=== PATIENT | female | born 1950 | race Caucasian/White ===

== ENCOUNTER 2016-10-29 18:53 | Emergency (ER) | payer MEDICARE, OTHER ==
[2016-10-29 19:15] VITALS: TEMP 97
--- NOTE | 2016-10-29 19:53 | ED ---
General Adult HPI - General Chief complaint: Dizziness Stated complaint: Dizziness Time Seen by Provider: 10/29/16 19:19 Source: patient, RN notes reviewed, old records reviewed Mode of arrival: wheelchair Limitations: no limitations - History of Present Illness Initial comments: This is a 66-year-old female here for evaluation of dizziness, lightheadedness and room is walking. Patient has history of anxiety to exact with no help. Symptoms all began after argument with family member yesterday. Patient did feel better and symptoms of seem to come and go, patient at this time is symptoms. no headache. Patient has history of diabetes high cholesterol hypertension. Patient has no chest pain or shortness of breath. No prior history of similar symptoms. Again at this time patient remains a symptomatically she did take a Xanax which did help. Patient's family doctor today and was feeling fine during her entire visit. - Related Data Home Medications Medication Instructions Recorded Confirmed ALPRAZolam [Xanax] 0.25 mg PO BID PRN 10/29/16 10/29/16 Aspirin EC [Ecotrin Low Dose] 81 mg PO DAILY 10/29/16 10/29/16 Esomeprazole Magnesium [NexIUM] 40 mg PO DAILY 10/29/16 10/29/16 Ezetimibe/Simvastatin [Vytorin 1 tab PO DAILY 10/29/16 10/29/16 10-40 mg Tablet] Levothyroxine Sodium [Synthroid] 200 mcg PO DAILY 10/29/16 10/29/16 Losartan-Hctz 50-12.5 mg [Hyzaar 1 tab PO DAILY 10/29/16 10/29/16 50-12.5] Memantine [Namenda] 10 mg PO BID 10/29/16 10/29/16 Sulindac [Clinoril] 200 mg PO BID 10/29/16 10/29/16 buPROPion HCL [Wellbutrin SR] 150 mg PO BID 10/29/16 10/29/16 sitaGLIPtin PHOS/metFORMIN HCL 1 tab PO BID 10/29/16 10/29/16 [Janumet 50-500 mg Tablet] Allergies Allergy/AdvReac Type Severity Reaction Status Date / Time No Known Allergies Allergy Verified 10/29/16 19:45 Review of Systems ROS Statement: Those systems with pertinent positive or pertinent negative responses have been documented in the HPI. ROS Other: All systems not noted in ROS Statement are negative. Past Medical History Past Medical History: Diabetes Mellitus, Hyperlipidemia, Hypertension History of Any Multi-Drug Resistant Organisms: None Reported Past Surgical History: Hernia Repair, Orthopedic Surgery, Tonsillectomy Additional Past Surgical History / Comment(s): hemorrhoid Past Psychological History: Anxiety Smoking Status: Former smoker Past Alcohol Use History: None Reported Past Drug Use History: None Reported General Exam Limitations: no limitations General appearance: alert, in no apparent distress Head exam: Present: atraumatic, normocephalic, normal inspection Eye exam: Present: normal appearance, PERRL, EOMI. Absent: scleral icterus, conjunctival injection, periorbital swelling ENT exam: Present: normal exam, mucous membranes moist Neck exam: Present: normal inspection. Absent: tenderness, meningismus, lymphadenopathy Respiratory exam: Present: normal lung sounds bilaterally. Absent: respiratory distress, wheezes, rales, rhonchi, stridor Cardiovascular Exam: Present: regular rate, normal rhythm, normal heart sounds. Absent: systolic murmur, diastolic murmur, rubs, gallop, clicks GI/Abdominal exam: Present: soft, normal bowel sounds. Absent: distended, tenderness, guarding, rebound, rigid Extremities exam: Present: normal inspection, full ROM, normal capillary refill. Absent: tenderness, pedal edema, joint swelling, calf tenderness Back exam: Present: normal inspection Neurological exam: Present: alert, oriented X3, CN II-XII intact Psychiatric exam: Present: normal affect, normal mood Skin exam: Present: warm, dry, intact, normal color. Absent: rash Course Vital Signs 10/29/16 10/29/16 19:09 21:55 Temperature 97.0 F L Pulse Rate 82 74 Respiratory 18 20 Rate Blood Pressure 115/64 119/58 O2 Sat by Pulse 98 96 Oximetry - Reevaluation(s) Reevaluation #1: Patient is able to ambulate without difficulty, no ataxia EKG Findings - EKG Comments: EKG Findings:: EKG shows normal sinus rhythm rate of 88, SC 150, QRS 88, QTC 452 Medical Decision Making - Medical Decision Making 66-year-old with increased anxiety mild dizziness. CT labwork is normal. Patient states she feels better at this time. Will be discharged home - Lab Data Result diagrams: 10/29/16 19:31 10/29/16 19:31 Lab Results 10/29/16 10/29/16 10/29/16 Range/Units 19:31 19:31 19:31 WBC 5.1 (3.8-10.6) k/uL RBC 4.71 (3.80-5.40) m/uL Hgb 14.5 (11.4-16.0) gm/dL Hct 43.2 (34.0-46.0) % MCV 91.7 (80.0-100.0) fL MCH 30.8 (25.0-35.0) pg MCHC 33.6 (31.0-37.0) g/dL RDW 13.6 (11.5-15.5) % Plt Count 256 (150-450) k/uL Neutrophils % 58 % Lymphocytes % 30 % Monocytes % 7 % Eosinophils % 3 % Basophils % 0 % Neutrophils # 2.9 (1.3-7.7) k/uL Lymphocytes # 1.5 (1.0-4.8) k/uL Monocytes # 0.3 (0-1.0) k/uL Eosinophils # 0.1 (0-0.7) k/uL Basophils # 0.0 (0-0.2) k/uL PT (9.0-12.0) sec INR (<1.2) APTT (22.0-30.0) sec Sodium 140 (137-145) mmol/L Potassium 4.0 (3.5-5.1) mmol/L Chloride 103 (98-107) mmol/L Carbon Dioxide 28 (22-30) mmol/L Anion Gap 9 mmol/L BUN 25 H (7-17) mg/dL Creatinine 0.96 (0.52-1.04) mg/dL Est GFR (MDRD) Af Amer >60 (>60 ml/min/1.73 sqM) Est GFR (MDRD) Non-Af 58 (>60 ml/min/1.73 sqM) Glucose 128 H (74-99) mg/dL Calcium 9.5 (8.4-10.2) mg/dL Phosphorus 2.8 (2.5-4.5) mg/dL Magnesium 1.2 L (1.6-2.3) mg/dL Total Bilirubin 0.5 (0.2-1.3) mg/dL AST 19 (14-36) U/L ALT 33 (9-52) U/L Alkaline Phosphatase 79 (38-126) U/L Total Creatine Kinase 128 (30-135) U/L CK-MB (CK-2) 2.4 (0.0-2.4) ng/mL CK-MB (CK-2) Rel Index 1.9 Troponin I <0.012 (0.000-0.034) ng/mL Total Protein 6.8 (6.3-8.2) g/dL Albumin 4.0 (3.5-5.0) g/dL TSH <0.015 L (0.465-4.680) mIU/L Urine Color Urine Appearance (Clear) Urine pH (5.0-8.0) Ur Specific Salters (1.001-1.035) Urine Protein (Negative) Urine Glucose (UA) (Negative) Urine Ketones (Negative) Urine Blood (Negative) Urine Nitrite (Negative) Urine Bilirubin (Negative) Urine Urobilinogen (<2.0) mg/dL Ur Leukocyte Esterase (Negative) 10/29/16 10/29/16 Range/Units 19:31 20:45 WBC (3.8-10.6) k/uL RBC (3.80-5.40) m/uL Hgb (11.4-16.0) gm/dL Hct (34.0-46.0) % MCV (80.0-100.0) fL MCH (25.0-35.0) pg MCHC (31.0-37.0) g/dL RDW (11.5-15.5) % Plt Count (150-450) k/uL Neutrophils % % Lymphocytes % % Monocytes % % Eosinophils % % Basophils % % Neutrophils # (1.3-7.7) k/uL Lymphocytes # (1.0-4.8) k/uL Monocytes # (0-1.0) k/uL Eosinophils # (0-0.7) k/uL Basophils # (0-0.2) k/uL PT 10.1 (9.0-12.0) sec INR 1.0 (<1.2) APTT 22.8 (22.0-30.0) sec Sodium (137-145) mmol/L Potassium (3.5-5.1) mmol/L Chloride (98-107) mmol/L Carbon Dioxide (22-30) mmol/L Anion Gap mmol/L BUN (7-17) mg/dL Creatinine (0.52-1.04) mg/dL Est GFR (MDRD) Af Amer (>60 ml/min/1.73 sqM) Est GFR (MDRD) Non-Af (>60 ml/min/1.73 sqM) Glucose (74-99) mg/dL Calcium (8.4-10.2) mg/dL Phosphorus (2.5-4.5) mg/dL Magnesium (1.6-2.3) mg/dL Total Bilirubin (0.2-1.3) mg/dL AST (14-36) U/L ALT (9-52) U/L Alkaline Phosphatase (38-126) U/L Total Creatine Kinase (30-135) U/L CK-MB (CK-2) (0.0-2.4) ng/mL CK-MB (CK-2) Rel Index Troponin I (0.000-0.034) ng/mL Total Protein (6.3-8.2) g/dL Albumin (3.5-5.0) g/dL TSH (0.465-4.680) mIU/L Urine Color Yellow Urine Appearance Clear (Clear) Urine pH 5.5 (5.0-8.0) Ur Specific Salters 1.010 (1.001-1.035) Urine Protein Negative (Negative) Urine Glucose (UA) Negative (Negative) Urine Ketones Negative (Negative) Urine Blood Negative (Negative) Urine Nitrite Negative (Negative) Urine Bilirubin Negative (Negative) Urine Urobilinogen <2.0 (<2.0) mg/dL Ur Leukocyte Esterase Negative (Negative) - Radiology Data Radiology results: report reviewed (CT brain is negative for acute disease), image reviewed Disposition Clinical Impression: Dizziness, Anxiety Disposition: HOME SELF-CARE Condition: Good Instructions: Dizziness (ED) Referrals: Dane Kraus MD [Primary Care Provider] - 1-2 days
[2016-10-29] MEDS ORDERED: SODIUM CHLORIDE 0.9% 1,000 ML IV STA (20:37)
[2016-10-29 21:00] LABS: Partial Thromboplastin Time 22.8 sec (22.0-30.0); Prothrombin Time 10.1 sec (9.0-12.0)
[2016-10-29 21:02] LABS: ALT 33 U/L (9-52); AST 19 U/L (14-36); Alkaline Phosphatase 79 U/L (38-126); Anion Gap 9 mmol/L; Basophils % (A) 0 %; Blood Urea Nitrogen 25 mg/dL (7-17); CHCM 32.8; Calcium 9.5 mg/dL (8.4-10.2); Carbon Dioxide 28 mmol/L (22-30); Chloride 103 mmol/L (98-107); Eosinophils # (A) 0.1 k/uL (0-0.7); Eosinophils % (A) 3 %; Glucose 128 mg/dL (74-99); HCT 43.2 % (34.0-46.0); HDW 2.49; HGB 14.5 gm/dL (11.4-16.0); Luc # (Auto) 0.11; Luc % (Auto) 2; Lymphocytes # (A) 1.5 k/uL (1.0-4.8); Lymphocytes % (A) 30 %; MCH 30.8 pg (25.0-35.0); MCHC 33.6 g/dL (31.0-37.0); MCV 91.7 fL (80.0-100.0); Magnesium 1.2 mg/dL (1.6-2.3); Mean Platelet Volume 7.4; Monocytes # (A) 0.3 k/uL (0-1.0); Monocytes % (A) 7 %; Neutrophils # (A) 2.9 k/uL (1.3-7.7); Neutrophils % (A) 58 %; Non-African American GFR(MDRD) 58 (>60 ml/min/1.73 sqM); Phosphorous 2.8 mg/dL (2.5-4.5); RBC 4.71 m/uL (3.80-5.40); RDW 13.6 % (11.5-15.5); Sodium 140 mmol/L (137-145); Total Bilirubin 0.5 mg/dL (0.2-1.3); Total Protein 6.8 g/dL (6.3-8.2); WBC 5.1 k/uL (3.8-10.6); WBC (Perox) 4.94
[2016-10-29 21:13] LABS: Appearance,Urine Clear (Clear); Bilirubin,Urine Negative (Negative); Glucose,Urine (UA) Negative (Negative); Ketones,Urine Negative (Negative); Leukocyte Esterase,Urine Negative (Negative); Nitrite,Urine Negative (Negative); PH, Urine 5.5 (5.0-8.0); Protein,Urine Negative (Negative); UA Billing (MACRO vs. MICRO) CHEM; Urobilinogen,Urine <2.0 mg/dL (<2.0)
[2016-10-29 21:13] LABS: Creatine Kinase 128 U/L (30-135)
--- NOTE | 2016-10-29 21:16 | CT ---
EXAMINATION TYPE: CT brain wo con DATE OF EXAM: 10/29/2016 COMPARISON: NONE HISTORY: Dizziness and weakness. No known injury CT DLP: 1036 mGycm Automated exposure control for dose reduction was used. FINDINGS: Ventricles of normal size. There is no mass effect nor midline shift. There is no sign of intracrania l hemorrhage. The calvarium is intact. There is a mucous retention cyst in the right maxillary sinus. IMPRESSION: NEGATIVE CT SCAN OF THE BRAIN.
[2016-10-29 21:27] LABS: Creatine Kinase MB 2.4 ng/mL (0.0-2.4); Troponin I <0.012 ng/mL (0.000-0.034)
[2016-10-29 21:56] VITALS: BP 119/58; PULSE 74; RESP 20
== END 2016-10-29 21:56 | disposition home or self-care (01) ==
LOC: EC 18:53
DX: R42 Dizziness and giddiness (principal); F41.9 Anxiety disorder, unspecified; E11.9 Type 2 diabetes mellitus without complications; I10 Essential (primary) hypertension; E78.5 Hyperlipidemia, unspecified; Z87.891 Personal history of nicotine dependence; Z79.82 Long term (current) use of aspirin; Z79.899 Other long term (current) drug therapy
CPT/HCPCS: 36415; 70450; 80053; 81003; 82550; 82553; 83735; 84100; 84443; 84484; 85025; 85610; 85730; 87086; 93005; 96360; 99285

== ENCOUNTER 2020-07-04 13:07 | Inpatient (IN) | payer MEDICARE, OTHER ==
[2020-07-04] MEDS ORDERED: SODIUM CHLORIDE 0.9% 500 ML 500 ML IV ONE (14:27)
[2020-07-04] MEDS ORDERED: ACETAMINOPHEN TAB 325 MG TAB PO STA (14:27)
[2020-07-04 14:58] LABS: Basophils % (A) 1 %; Eosinophils % (A) 1 %; HCT 41.1 % (34.0-46.0); HGB 13.4 gm/dL (11.4-16.0); Lymphocytes # (A) 0.5 k/uL (1.0-4.8); Lymphocytes % (A) 11 %; MCH 29.2 pg (25.0-35.0); MCHC 32.6 g/dL (31.0-37.0); MCV 89.6 fL (80.0-100.0); Mean Platelet Volume 8.1; Monocytes # (A) 0.3 k/uL (0-1.0); Monocytes % (A) 6 %; Neutrophils # (A) 3.5 k/uL (1.3-7.7); Neutrophils % (A) 79 %; Platelet Count 379 k/uL (150-450); RBC 4.58 m/uL (3.80-5.40); WBC 4.4 k/uL (3.8-10.6)
--- NOTE | 2020-07-04 14:58 | XR ---
EXAMINATION TYPE: XR chest 1V portable DATE OF EXAM: 07/04/2020 COMPARISON: NONE HISTORY: Suspected Covid 19 pneumonia, cough and fever TECHNIQUE: Single frontal view of the chest is obtained. FINDINGS: Bilateral airspace disease is extensive. Patient is rotated. No evident pneumothorax or pl eural effusion. Cardiac mediastinal silhouette somewhat exaggerated likely due to technique. There ar e overlying artifacts. IMPRESSION: Correlate for pneumonia, edema
[2020-07-04 15:09] LABS: INR 0.9 (<1.2); Partial Thromboplastin Time 24.9 sec (22.0-30.0)
[2020-07-04 15:11] LABS: D-Dimer 3.13 mg/L FEU (<0.60)
[2020-07-04 15:28] LABS: Albumin 3.7 g/dL (3.5-5.0); Calcium 9.4 mg/dL (8.4-10.2); Magnesium 1.6 mg/dL (1.6-2.3); Potassium 4.5 mmol/L (3.5-5.1)
--- NOTE | 2020-07-04 15:36 | ED ---
General Adult HPI - General Chief complaint: Fever Stated complaint: cough, fever Time Seen by Provider: 07/04/20 13:54 Source: patient Mode of arrival: wheelchair Limitations: no limitations - History of Present Illness Initial comments: 70 year-old female patient presents to the emergency department for evaluation of congestion, cough, and shortness of breath. States that she has had some nausea. Denies any vomiting or diarrhea. States that she has had symptoms for the last two weeks. Reports a remote history of smoking. No diagnosed lung conditions. She denies any chest pain, dizziness, does feel generalized weakness and fatigue. Denies having received COVID-19 vaccine. Denies any known exposure to COVID-19. Patient denies any recent rash, abdominal pain, constipation, back pain, numbness, tingling, hematuria, dysuria, urinary urgency, urinary frequency, headache, visual changes, or any other complaints. - Related Data Home Medications Medication Instructions Recorded Confirmed ALPRAZolam [Xanax] 0.25 mg PO BID PRN 10/29/16 03/12/17 Aspirin EC [Ecotrin Low Dose] 81 mg PO DAILY 10/29/16 03/12/17 Esomeprazole Magnesium [NexIUM] 40 mg PO DAILY 10/29/16 03/12/17 Ezetimibe/Simvastatin [Vytorin 1 tab PO DAILY 10/29/16 03/12/17 10-40 mg Tablet] Levothyroxine Sodium [Synthroid] 200 mcg PO DAILY 10/29/16 03/12/17 Losartan-Hctz 50-12.5 mg [Hyzaar 1 tab PO DAILY 10/29/16 03/12/17 50-12.5] Memantine [Namenda] 10 mg PO BID 10/29/16 03/12/17 Sulindac [Clinoril] 200 mg PO BID 10/29/16 03/12/17 buPROPion HCL [Wellbutrin SR] 150 mg PO BID 10/29/16 03/12/17 sitaGLIPtin PHOS/metFORMIN HCL 1 tab PO BID 10/29/16 03/12/17 [Janumet 50-500 mg Tablet] ALPRAZolam [Xanax] 0.25 mg PO BID PRN 03/12/17 03/12/17 Aspirin 81 mg PO DAILY 03/12/17 03/12/17 Previous Rx's Medication Instructions Recorded Hydrocodone/Acetaminophen [[place] 1 each PO Q6HR PRN #20 tab 03/12/17 5-325] Methocarbamol [Robaxin-750] 750 mg PO TID PRN #30 tablet 03/12/17 predniSONE 60 mg PO DAILY #30 tab 03/12/17 Allergies Allergy/AdvReac Type Severity Reaction Status Date / Time No Known Allergies Allergy Verified 07/04/20 13:29 Review of Systems ROS Statement: Those systems with pertinent positive or pertinent negative responses have been documented in the HPI. ROS Other: All systems not noted in ROS Statement are negative. Past Medical History Past Medical History: Diabetes Mellitus, Hyperlipidemia, Hypertension History of Any Multi-Drug Resistant Organisms: None Reported Past Surgical History: Hernia Repair, Orthopedic Surgery, Tonsillectomy Additional Past Surgical History / Comment(s): hemorrhoid Past Psychological History: Anxiety Smoking Status: Former smoker Past Alcohol Use History: None Reported Past Drug Use History: None Reported General Exam Limitations: no limitations General appearance: alert, in no apparent distress, other (Physical well-developed, well-nourished adult female patient in no acute distress. Vital signs upon presentation are temperature 101.1F, pulse 98, respirations 22, blood pressure 138/67, pulse ox 81% on room air.) Eye exam: Present: normal appearance, PERRL, EOMI. Absent: scleral icterus, conjunctival injection, periorbital swelling ENT exam: Present: normal exam, normal oropharynx, mucous membranes moist Respiratory exam: Present: normal lung sounds bilaterally. Absent: respiratory distress, wheezes, rales, rhonchi, stridor Cardiovascular Exam: Present: regular rate, normal rhythm, normal heart sounds. Absent: systolic murmur, diastolic murmur, rubs, gallop, clicks GI/Abdominal exam: Present: soft, normal bowel sounds. Absent: distended, tenderness, guarding, rebound, rigid Neurological exam: Present: alert, oriented X3, CN II-XII intact Psychiatric exam: Present: normal affect, normal mood Skin exam: Present: warm, dry, intact, normal color. Absent: rash Course Vital Signs 07/04/20 07/04/20 07/04/20 13:23 14:25 14:36 Temperature 101.0 F H Pulse Rate 98 89 Respiratory 22 16 Rate Blood Pressure 138/67 O2 Sat by Pulse 81 L 91 L Oximetry 07/04/20 18:35 Temperature 98.2 F Pulse Rate 82 Respiratory 16 Rate Blood Pressure 144/99 O2 Sat by Pulse 92 L Oximetry EKG Findings - EKG Comments: EKG Findings:: EKG obtained at 1356 shows normal sinus rhythm with ventricular rate of 92, HI interval 136, QRS duration 80, QT 342, QTc 422. No evidence of ST elevation or depression. Procedures - [place] Protocol (Time Out) Nurse: Karrie Vera Medical Decision Making - Medical Decision Making 70-year-old female patient presents to the emergency department today for evaluation of cough and fever this started a couple of weeks ago. Physical examination did reveal clear equal lung sounds. She was hypoxic at 81% upon arrival. Labs reviewed and did reveal elevated d-dimer, LDH, CRP, low lymphocytes. Covid test was negative. CT angiography of the chest was obtained and showed groundglass opacities consistent with Covid pneumonia. Patient was put on oxygen levels did improve to around 91-92%. I did discuss findings and results with her. We will send Covid PCR. Treat for bacterial pneumonia with antibiotics in the meantime. She'll be admitted to the hospital for further evaluation and treatment. Case discussed with my attending Dr. Wolfe. - Lab Data Result diagrams: 07/04/20 14:27 07/04/20 14:27 Lab Results 07/04/20 07/04/20 07/04/20 Range/Units 14:27 14:27 14:27 WBC 4.4 (3.8-10.6) k/uL RBC 4.58 (3.80-5.40) m/uL Hgb 13.4 (11.4-16.0) gm/dL Hct 41.1 (34.0-46.0) % MCV 89.6 (80.0-100.0) fL MCH 29.2 (25.0-35.0) pg MCHC 32.6 (31.0-37.0) g/dL RDW 14.0 (11.5-15.5) % Plt Count 379 (150-450) k/uL MPV 8.1 Neutrophils % 79 % Lymphocytes % 11 % Monocytes % 6 % Eosinophils % 1 % Basophils % 1 % Neutrophils # 3.5 (1.3-7.7) k/uL Lymphocytes # 0.5 L (1.0-4.8) k/uL Monocytes # 0.3 (0-1.0) k/uL Eosinophils # 0.0 (0-0.7) k/uL Basophils # 0.0 (0-0.2) k/uL PT 10.0 (9.0-12.0) sec INR 0.9 (<1.2) APTT 24.9 (22.0-30.0) sec D-Dimer 3.13 H (<0.60) mg/L FEU Sodium 135 L (137-145) mmol/L Potassium 4.5 (3.5-5.1) mmol/L Chloride 100 (98-107) mmol/L Carbon Dioxide 23 (22-30) mmol/L Anion Gap 12 mmol/L BUN 36 H (7-17) mg/dL Creatinine 1.27 H (0.52-1.04) mg/dL Est GFR (CKD-EPI)AfAm 50 (>60 ml/min/1.73 sqM) Est GFR (CKD-EPI)NonAf 43 (>60 ml/min/1.73 sqM) Glucose 107 H (74-99) mg/dL Plasma Lactic Acid David (0.7-2.0) mmol/L Calcium 9.4 (8.4-10.2) mg/dL Magnesium 1.6 (1.6-2.3) mg/dL Total Bilirubin 1.0 (0.2-1.3) mg/dL AST 76 H (14-36) U/L ALT 32 (4-34) U/L Alkaline Phosphatase 133 H (38-126) U/L Lactate Dehydrogenase 1502 H (313-618) U/L C-Reactive Protein 19.9 H (<1.0) mg/dL Total Protein 7.0 (6.3-8.2) g/dL Albumin 3.7 (3.5-5.0) g/dL Coronavirus (PCR) (Not Detectd) 07/04/20 07/04/20 Range/Units 14:27 14:27 WBC (3.8-10.6) k/uL RBC (3.80-5.40) m/uL Hgb (11.4-16.0) gm/dL Hct (34.0-46.0) % MCV (80.0-100.0) fL MCH (25.0-35.0) pg MCHC (31.0-37.0) g/dL RDW (11.5-15.5) % Plt Count (150-450) k/uL MPV Neutrophils % % Lymphocytes % % Monocytes % % Eosinophils % % Basophils % % Neutrophils # (1.3-7.7) k/uL Lymphocytes # (1.0-4.8) k/uL Monocytes # (0-1.0) k/uL Eosinophils # (0-0.7) k/uL Basophils # (0-0.2) k/uL PT (9.0-12.0) sec INR (<1.2) APTT (22.0-30.0) sec D-Dimer (<0.60) mg/L FEU Sodium (137-145) mmol/L Potassium (3.5-5.1) mmol/L Chloride (98-107) mmol/L Carbon Dioxide (22-30) mmol/L Anion Gap mmol/L BUN (7-17) mg/dL Creatinine (0.52-1.04) mg/dL Est GFR (CKD-EPI)AfAm (>60 ml/min/1.73 sqM) Est GFR (CKD-EPI)NonAf (>60 ml/min/1.73 sqM) Glucose (74-99) mg/dL Plasma Lactic Acid David 1.5 (0.7-2.0) mmol/L Calcium (8.4-10.2) mg/dL Magnesium (1.6-2.3) mg/dL Total Bilirubin (0.2-1.3) mg/dL AST (14-36) U/L ALT (4-34) U/L Alkaline Phosphatase (38-126) U/L Lactate Dehydrogenase (313-618) U/L C-Reactive Protein (<1.0) mg/dL Total Protein (6.3-8.2) g/dL Albumin (3.5-5.0) g/dL Coronavirus (PCR) Not Detected (Not Detectd) - Radiology Data Radiology results: report reviewed, image reviewed Disposition Clinical Impression: Pneumonia, Hypoxia, Acute kidney injury Disposition: ADMITTED IP TO THIS [facility] Condition: Serious Referrals: None,Stated [Primary Care Provider] - 1-2 days Decision to Admit Reason: Admit from EC Decision Date: 07/04/20 Decision Time: 18:51
[2020-07-04 15:55] LABS: C Reactive Protein 19.9 mg/dL (<1.0)
--- NOTE | 2020-07-04 17:52 | CT ---
EXAMINATION TYPE: CT chest angio for PE DATE OF EXAM: 07/04/2020 COMPARISON: HISTORY: shortness of breath CT DLP: 783.5 mGycm Automated exposure control for dose reduction was used. CONTRAST: CT Chest for pulmonary embolism performed with with IV Contrast, patient injected with 100 mL of Isov ue 370. FINDINGS: LUNGS: There are multifocal diffuse marked groundglass and patchy airspace opacities throughout the b ilateral lungs. No pleural effusion or pneumothorax. Tracheobronchial tree is patent. MEDIASTINUM: The thoracic aorta is normal in caliber. There is satisfactory opacification of the pulm onary artery and its branches. No evidence of filling defects to suggest pulmonary emboli. There is b orderline cardiac megaly. No pericardial effusion. There is reactive bihilar and mediastinal lymphade nopathy. OTHER: Upper abdomen demonstrates normal adrenal glands. Degenerative changes of the spine. IMPRESSION: 1. Diffuse marked patchy groundglass and airspace opacities of the bilateral lungs. Findings are checo acteristic of Covid 19 pneumonitis, although other infectious etiologies not excluded. 2. No pulmonary embolism.
[2020-07-04] MEDS ORDERED: ACETAMINOPHEN TAB 325 MG TAB PO PRN (18:45)
[2020-07-04] MEDS ORDERED: NALOXONE 0.4 MG/ML 1 ML VIAL IV PRN (18:45)
[2020-07-04] MEDS ORDERED: ONDANSETRON 4 MG/2 ML VIAL IVP PRN (18:45)
[2020-07-04] MEDS ORDERED: DEXAMETHASONE SOD PHOSPHATE 10 MG/ML 1 ML VIAL IV STA (18:48)
[2020-07-04] MEDS ORDERED: AZITHROMYCIN 500 MG in SODIUM CHLORIDE 0.9% 250 ML IVPB STA (18:49)
[2020-07-04] MEDS: SODIUM CHLORIDE 0.9% 1,000 ML IV SCH (19:54)
[2020-07-04 21:02] LABS: Glucose,Whole Blood 59 mg/dL (75-99)
[2020-07-04 21:22] LABS: Glucose,Whole Blood 71 mg/dL (75-99)
[2020-07-04] MEDS ORDERED: ALPRAZolam 0.25 MG TAB PO PRN (21:24)
[2020-07-04] MEDS: GABAPENTIN 100 MG CAP PO SCH (23:09)
[2020-07-04] MEDS: MEMANTINE 10 MG TAB PO SCH (23:09)
[2020-07-04] MEDS: ASCORBIC ACID 500 MG TAB PO SCH (23:10)
[2020-07-04] MEDS: buPROPion SR 150 MG TABLET.ER PO SCH (23:10)
[2020-07-04] MEDS: ETODOLAC 400 MG TAB PO SCH (23:11)
[2020-07-04] MEDS: metFORMIN 500 MG TAB PO SCH (23:12)
[2020-07-04] MEDS: LINAGLIPTIN 5 MG TABLET PO SCH (23:12)
[2020-07-05] MEDS: SYMBICORT 80-4.5 MCG INHALER INHALATION SCH ×3 (01:44→19:14)
--- NOTE | 2020-07-05 02:09 | HP ---
HISTORY AND PHYSICAL A 70-year-old white female came to the emergency room with congestive cough, shortness of breath. Some nausea. Denies any vomiting or diarrhea. She has had no symptoms for the past 2 weeks ago. Remote history of smoking. No diagnosis of lung problems. Denied chest pain, dizziness, weakness, fatigue. Denies having any Covid vaccines. Denies exposure to Covid. No recent rash, abdominal pain, constipation, back pain, numbness, dysuria, frequency, urgency, hesitancy, etc. CT in the ER showed interstitial pneumonia bilaterally, started on Covid treatments for Covid, possible community-acquired pneumonia. MEDICATIONS: Home medicines: Xanax 0.25 b.i.d., aspirin 81 mg daily. Nexium 40 mg daily. Vytorin 10/40 1 daily. Synthroid 200 mcg daily. Losartan HCT , Hyzaar 50/12.5 1 daily, Namenda 10 b.i.d., insulin b.i.d., Wellbutrin XR 150 b.i.d., Janumet 50/500 1 b.i.d.. ALLERGIES: No known drug allergies. REVIEW OF SYMPTOMS: 14-point review of systems otherwise negative. PAST MEDICAL HISTORY: Diabetes mellitus, hypertension, dyslipidemia, orthopedic surgery, hernia repair, tonsillectomy. SOCIAL HISTORY: Former smoker. No alcohol. No drugs. PHYSICAL EXAMINATION: Temperature is 101, pulse 89-98, respiratory 16-22, blood pressure is 130/67, O2 is 81 on room air, up to 91 on 2 L. She is well developed, well nourished, in no acute distress. She had a fever on admission, now it is down better. Her oxygen in the 90s on 2 L. Pupils equal, round, reactive. LUNGS shows scattered rhonchi and wheeze. CARDIOVASCULAR: Regular rate and rhythm. GI soft and nontender. NEUROLOGIC: Cranial nerves intact. PSYCH: Fair mood and affect. SKIN warm, dry, and rashes. EKG sinus rhythm. ASSESSMENT: 1. Possible community-acquired pneumonia with acute hypoxemic respiratory distress. Rule out Covid. CT scan of the chest was negative for pulmonary embolism. Suspicious for Covid. We will do a repeat and send out Covid test as rapid was negative. 2. Oxygen up to 91 to 92 on oxygen. 3. Treated for community-acquired pneumonia as well as Covid. 4. Steroids, zinc, vitamin C, vitamin D and antibiotics. 5. Admit the patient. 6. She had prerenal azotemia with elevated BUN and creatinine 36-1.27. 7. Give her fluids overnight. 8. Elevated D-dimer. 9. Pulmonary embolism is negative as mentioned. 10.We will do some LDH and CRP levels. 11.Please see further orders. MMODL / IJN: [id number] /
[2020-07-05] MEDS: LEVOTHYROXINE 100 MCG TAB PO SCH (06:21)
[2020-07-05] MEDS: PANTOPRAZOLE 40 MG TABLET PO SCH (06:21)
[2020-07-05 06:28] LABS: Glucose,Whole Blood 212 mg/dL (75-99)
[2020-07-05] MEDS: INSULIN ASPART (NovoLOG) 100 UNIT/ML VIAL SQ SCH ×5 (06:53→21:20)
[2020-07-05] MEDS: LOSARTAN-HCTZ 50-12.5 MG 1 EACH TAB PO SCH (09:08)
[2020-07-05] MEDS: OXYBUTYNIN XL 5 MG TAB.ER.24 PO SCH (09:09)
[2020-07-05] MEDS: ATORVASTATIN 20 MG TAB PO SCH (09:09)
[2020-07-05] MEDS: EZETIMIBE 10 MG TAB PO SCH (09:09)
[2020-07-05] MEDS: ASPIRIN 81 MG PO SCH (09:09)
[2020-07-05] MEDS: CHOLECALCIFEROL 25 MCG (1000 IU) TABLET PO SCH (09:09)
[2020-07-05] MEDS: ETODOLAC 400 MG TAB PO SCH ×2 (09:09→17:00)
[2020-07-05] MEDS: DEXAMETHASONE SOD PHOSPHATE 10 MG/ML 1 ML VIAL IV SCH (09:10)
[2020-07-05] MEDS: MEMANTINE 10 MG TAB PO SCH ×2 (09:10→21:20)
[2020-07-05] MEDS: metFORMIN 500 MG TAB PO SCH ×2 (09:10→21:20)
[2020-07-05] MEDS: ASCORBIC ACID 500 MG TAB PO SCH ×2 (09:10→21:19)
[2020-07-05] MEDS: GABAPENTIN 100 MG CAP PO SCH ×3 (09:10→21:19)
[2020-07-05] MEDS: ZINC SULFATE 220 MG CAP PO SCH (09:10)
[2020-07-05] MEDS: buPROPion SR 150 MG TABLET.ER PO SCH ×2 (09:12→21:47)
[2020-07-05 10:03] LABS: Basophils % (A) 1 %; Eosinophils % (A) 0 %; HGB 13.6 gm/dL (11.4-16.0); Lymphocytes # (A) 0.3 k/uL (1.0-4.8); Lymphocytes % (A) 14 %; MCH 29.8 pg (25.0-35.0); MCHC 33.3 g/dL (31.0-37.0); MCV 89.6 fL (80.0-100.0); Mean Platelet Volume 7.6; Monocytes # (A) 0.1 k/uL (0-1.0); Monocytes % (A) 4 %; Neutrophils # (A) 1.9 k/uL (1.3-7.7); Neutrophils % (A) 78 %; Platelet Count 336 k/uL (150-450); RBC 4.58 m/uL (3.80-5.40); RDW 13.5 % (11.5-15.5); WBC 2.4 k/uL (3.8-10.6)
[2020-07-05 10:23] LABS: Albumin 3.2 g/dL (3.5-5.0); Calcium 9.3 mg/dL (8.4-10.2); Potassium 5.1 mmol/L (3.5-5.1); Total Bilirubin 0.8 mg/dL (0.2-1.3); Total Protein 6.4 g/dL (6.3-8.2)
[2020-07-05 11:41] LABS: Glucose,Whole Blood 309 mg/dL (75-99)
[2020-07-05] MEDS ORDERED: REMDESIVIR 200 MG in SODIUM CHLORIDE 0.9% 250 ML IVPB ONE (14:30)
[2020-07-05] MEDS: SODIUM CHLORIDE 0.9% 1,000 ML IV SCH (15:45)
[2020-07-05 16:19] LABS: Ferritin 505.1 ng/mL (10.0-291.0)
--- NOTE | 2020-07-05 16:29 | P.CNPUL ---
History of Present Illness Consult date: 07/05/20 Requesting physician: Ronni Pena Reason for consult: hypoxemia, pneumonia Chief complaint: Cough and shortness of breath. History of present illness: This is a 70-year-old female with 1 week history of multiple constitutional symptoms including cough, congestion, shortness of breath, weakness, aches and pains, elevated in the ER, patient had a positive PCR for muniz virus. And she had CT of the chest consistent with acute COVID-19 pneumonitis. Patient required 2 L of oxygen and her O2 sats is 94% on 2 L. CBC showed a relative leukopenia. Normal platelets, normal electrolytes. Renal profile is abnormal with BUN of 40 creatinine of 1.33, blood sugar was 305 no inflammatory markers were ordered. Patient was admitted, and this consult was initiated. After evaluating the patient, I did recommend that we start the patient on REM since her symptoms are only 1-week-old. And the patient is requiring minimal amount of oxygen. She is already on Decadron. Already on Lovenox, and she is already on vitamins as well as zinc. I discontinued her oral antibiotics and IV antibiotics as I felt there is no need for them to be on board. Clearly the presentation is a presentation of acute COVID-19 pneumonitis. Based on her chest x-ray and CT chest findings as well as the clinical history and the fact that she has a positive PCR. Review of Systems Constitutional: Low-grade fever, cough, congestion, aches and pains, weakness. HEENT: As noted in HPI. Pulmonary: As noted in HPI. Cardiac: Negative. GI: Intermittent diarrhea. Genitourinary: Negative. Musko skeletal: Aches and pains Neurologic: Occasional headaches Psychiatric: Negative Hematologic: Negative Skin: Negative Endocrine: Negative Past Medical History Past Medical History: Diabetes Mellitus, Hyperlipidemia, Hypertension, Thyroid Disorder History of Any Multi-Drug Resistant Organisms: None Reported Past Surgical History: Hernia Repair, Hysterectomy, Orthopedic Surgery, Tonsillectomy Additional Past Surgical History / Comment(s): hemorrhoid Past Anesthesia/Blood Transfusion Reactions: No Reported Reaction Past Psychological History: Anxiety, Depression Smoking Status: Former smoker Past Alcohol Use History: None Reported Past Drug Use History: None Reported - Past Family History Mother Additional Family Medical History / Comment(s): Rheumatic heart disease Father Family Medical History: Coronary Artery Disease (CAD) Medications and Allergies Home Medications Medication Instructions Recorded Confirmed Type ALPRAZolam [Xanax] 0.25 mg PO BID PRN 10/29/16 07/04/20 History Esomeprazole Magnesium [NexIUM] 40 mg PO DAILY 10/29/16 07/04/20 History Ezetimibe/Simvastatin [Vytorin 1 tab PO DAILY 10/29/16 07/04/20 History 10-40 mg Tablet] Losartan-Hctz 50-12.5 mg [Hyzaar 1 tab PO DAILY 10/29/16 07/04/20 History 50-12.5] Memantine [Namenda] 10 mg PO BID 10/29/16 07/04/20 History Sulindac [Clinoril] 200 mg PO BID 10/29/16 07/04/20 History buPROPion HCL [Wellbutrin SR] 150 mg PO BID 10/29/16 07/04/20 History sitaGLIPtin PHOS/metFORMIN HCL 1 tab PO BID 10/29/16 07/04/20 History [Janumet 50-500 mg Tablet] Aspirin 81 mg PO DAILY 03/12/17 07/04/20 History Gabapentin [Neurontin] 100 mg PO TID 07/04/20 07/04/20 History Levothyroxine Sodium [Levoxyl] 200 mcg PO DAILY 07/04/20 07/04/20 History Oxybutynin Chloride [Ditropan XL] 5 mg PO DAILY 07/04/20 07/04/20 History Allergies Allergy/AdvReac Type Severity Reaction Status Date / Time No Known Allergies Allergy Verified 07/04/20 20:30 Physical Exam Vitals: Vital Signs Temp Pulse Pulse Resp BP BP Pulse Ox 07/05/20 11:49 96.7 F L 76 18 90/54 92 L 07/05/20 07:45 18 94 L 07/05/20 07:35 20 86 L 07/05/20 07:30 96.4 F L 73 18 100/56 93 L 07/05/20 04:00 96.9 F L 70 18 106/60 92 L 07/04/20 23:47 97.9 F 82 18 104/60 93 L 07/04/20 22:05 83 18 107/55 93 L 07/04/20 20:57 97.7 F 81 20 136/61 93 L 07/04/20 18:35 98.2 F 82 16 144/99 92 L Intake and Output 07/05/20 07/05/20 07/05/20 06:59 14:59 22:59 Intake Total 670 Output Total 300 Balance 370 Intake: IV 10 Invasive Line 1 10 Oral 660 Output: Urine 300 Other: Voiding Method Toilet # Voids 1 Weight 103 kg Physical Exam revealed 70-year-old female in no distress. Head: Atraumatic, normocephalic. HEENT:[Neck is supple.] [No neck masses.] [No thyromegaly.] [No JVD.] Chest: [[employer] chest expansion, crackles at the bases, no rhonchi no wheezes. Cardiac Exam: [Normal S1 and S2, no S3 gallop, no murmur.] Abdomen: [Soft, nontender, no megaly, no rebound, no guarding, normal bowel bartolo nds.] Extremities: [No clubbing, no edema, no cyanosis.] Neurological Exam: [No focal neurologic deficit.] Alert and oriented 3. Psychiatric: Normal mood, affect and normal mental status examination. Skin: No rashes. Musko skeletal: No deformities and no limitation in range of motion. Results - Laboratory Findings CBC and BMP: 07/05/20 09:07 07/05/20 09:07 PT/INR, D-dimer PT 10.0 sec (9.0-12.0) 07/04/20 14:27 INR 0.9 (<1.2) 07/04/20 14:27 D-Dimer 3.13 mg/L FEU (<0.60) H 07/04/20 14:27 Abnormal lab findings: Abnormal Labs 07/04/20 07/04/20 07/04/20 14:27 14:27 14:27 WBC Lymphocytes # 0.5 L D-Dimer 3.13 H Sodium 135 L BUN 36 H Creatinine 1.27 H Glucose 107 H POC Glucose (mg/dL) Ferritin 505.1 H AST 76 H ALT Alkaline Phosphatase 133 H Lactate Dehydrogenase 1502 H C-Reactive Protein 19.9 H Albumin Coronavirus (PCR) 07/04/20 07/04/20 07/04/20 20:20 20:30 20:58 WBC Lymphocytes # D-Dimer Sodium BUN Creatinine Glucose POC Glucose (mg/dL) 59 L Ferritin AST ALT Alkaline Phosphatase Lactate Dehydrogenase C-Reactive Protein Albumin Coronavirus (PCR) Detected A Detected A 07/04/20 07/05/20 07/05/20 21:21 06:27 09:07 WBC 2.4 L Lymphocytes # 0.3 L D-Dimer Sodium BUN Creatinine Glucose POC Glucose (mg/dL) 71 L 212 H Ferritin AST ALT Alkaline Phosphatase Lactate Dehydrogenase C-Reactive Protein Albumin Coronavirus (PCR) 07/05/20 07/05/20 09:07 11:39 WBC Lymphocytes # D-Dimer Sodium 136 L BUN 40 H Creatinine 1.33 H Glucose 305 H POC Glucose (mg/dL) 309 H Ferritin AST 75 H ALT 41 H Alkaline Phosphatase Lactate Dehydrogenase C-Reactive Protein Albumin 3.2 L Coronavirus (PCR) - Diagnostic Findings CT scan - chest: image reviewed (As noted in HPI.) Assessment and Plan Assessment: Impression: Acute hypoxic respiratory failure secondary to acute COVID-19 pneumonia History of type 2 diabetes. Dyslipidemia. Benign essential hypertension. Recommendation: Patient will be started on REM. Continue the COVID-19 cocktail. Continue oxygen and titrate accordingly. Continue Lovenox. Continue Decadron. Discontinue antibiotics. Continue droplet isolation. Incentive spirometer. We'll continue to follow. Time with Patient: Greater than 30
[2020-07-05 16:44] LABS: Glucose,Whole Blood 275 mg/dL (75-99)
[2020-07-05 18:23] LABS: C Reactive Protein 13.2 mg/dL (<1.0)
[2020-07-05 20:51] LABS: Glucose,Whole Blood 199 mg/dL (75-99)
[2020-07-05] MEDS ORDERED: AZITHROMYCIN 500 MG in SODIUM CHLORIDE 0.9% 250 ML IVPB SCH (21:00)
[2020-07-05] MEDS: LINAGLIPTIN 5 MG TABLET PO SCH (21:19)
[2020-07-06 06:05] LABS: Glucose,Whole Blood 203 mg/dL (75-99)
[2020-07-06] MEDS: LEVOTHYROXINE 100 MCG TAB PO SCH (06:37)
[2020-07-06] MEDS: PANTOPRAZOLE 40 MG TABLET PO SCH (06:37)
[2020-07-06] MEDS: INSULIN ASPART (NovoLOG) 100 UNIT/ML VIAL SQ SCH ×7 (07:30→20:38)
[2020-07-06] MEDS: SYMBICORT 80-4.5 MCG INHALER INHALATION SCH ×2 (08:12→20:17)
[2020-07-06] MEDS: ASCORBIC ACID 500 MG TAB PO SCH ×2 (09:02→20:38)
[2020-07-06] MEDS: GABAPENTIN 100 MG CAP PO SCH ×3 (09:02→20:38)
[2020-07-06] MEDS: MEMANTINE 10 MG TAB PO SCH ×2 (09:02→20:38)
[2020-07-06] MEDS: ZINC SULFATE 220 MG CAP PO SCH (09:02)
[2020-07-06] MEDS: EZETIMIBE 10 MG TAB PO SCH (09:02)
[2020-07-06] MEDS: ATORVASTATIN 20 MG TAB PO SCH (09:02)
[2020-07-06] MEDS: buPROPion SR 150 MG TABLET.ER PO SCH ×2 (09:03→20:38)
[2020-07-06] MEDS: OXYBUTYNIN XL 5 MG TAB.ER.24 PO SCH (09:03)
[2020-07-06] MEDS: LOSARTAN-HCTZ 50-12.5 MG 1 EACH TAB PO SCH ×2 (09:03→09:32)
[2020-07-06] MEDS: DEXAMETHASONE SOD PHOSPHATE 10 MG/ML 1 ML VIAL IV SCH (09:03)
[2020-07-06] MEDS: ASPIRIN 81 MG PO SCH (09:03)
[2020-07-06] MEDS: CHOLECALCIFEROL 25 MCG (1000 IU) TABLET PO SCH (09:03)
[2020-07-06] MEDS: metFORMIN 500 MG TAB PO SCH ×2 (09:03→20:38)
[2020-07-06] MEDS: ENOXAPARIN 40 MG/0.4 ML SYRINGE SQ SCH (09:03)
[2020-07-06] MEDS: SODIUM CHLORIDE 0.9% 1,000 ML IV SCH (09:04)
--- NOTE | 2020-07-06 09:04 | CONS ---
CONSULTATION DATE OF SERVICE: 07/05/2020 REASON FOR CONSULTATION: COVID-19 pneumonia. HISTORY OF PRESENT ILLNESS: The patient is a 70-year-old female who presented to [facility] ER yesterday for evaluation of increasing shortness of breath, cough, and congestion and this patient's symptoms have been going on for about a week before presentation to hospital. The patient has a component of shortness of breath and minimal exertion. The patient also has a cough which is mild to moderate in intensity and is mostly dry in nature. The patient denies symptomatic chest pain. The patient has been complaining of some nausea and decreased oral intake, but no vomiting or any diarrhea. The patient did have some chills but denies having any fever with these symptoms. The patient has been evaluated by the ER physician. On arrival to the ER, the patient did have a fever of 101 degrees Fahrenheit. The patient was hypoxic with O2 sats of 81% on room air, currently 91% on 4 L nasal cannula. The patient did have leukopenia as well as lymphopenia and elevated D-dimer. Creatinine is 1.3. Liver enzymes are elevated and are elevated. The patient did have a chest x-ray which shows correlate for pneumonia or edema. The patient did have a CT angiogram of the chest diffuse marked patchy ground-glass opacities suggestive of COVID-19 infection. The patient's initial test came back negative however repeat test came back positive for COVID. Infectious Disease was consulted for further management of antibiotic therapy. REVIEW OF SYSTEMS: Positive points have been mentioned in HPI. Rest of systems are negative. PAST MEDICAL HISTORY: Diabetes mellitus, hypertension, hyperlipidemia. PAST SURGICAL HISTORY: Hernia repair, tonsillectomy. SOCIAL HISTORY: Remote history of smoking. No drinking or drug use. FAMILY HISTORY: No pertinent findings noticed. ALLERGIES: No known drug allergies. MEDICATIONS: Medications include the patient is currently on Tylenol, Xanax, vitamin C, aspirin, Lipitor, Symbicort, Wellbutrin, dexamethasone, Lovenox, zinc, Protonix, and remdesivir. PHYSICAL EXAMINATION: Blood pressure is 97/56, pulse of 69, temperature 97.6, T-max 101. She is 94% on 4 L nasal cannula. General description is an elderly female up in the chair in no distress. No tachypnea or accessory muscles of respiration use. HEENT: Examination showed no pallor or scleral icterus. Oral mucous membrane is dry. NECK: Trachea central. No thyromegaly. LUNGS: Unlabored breathing. Coarse breath sounds bilaterally. No wheeze. HEART: S1, S2. Regular rate and rhythm. ABDOMEN: Soft, no tenderness. No guarding or rigidity. EXTREMITIES: No edema of feet. SKIN EXAMINATION: No rash or mass palpable. NEUROLOGICAL: Patient is awake, alert, oriented x3. Mood and affect normal. LABS: Hemoglobin 13.6, white count 2.4 with lymphopenia. D-dimer is 5.26. Creatinine 1.33. Liver enzymes mildly elevated. Elevated LDH and CRP. Chest x-ray report as mentioned above. DIAGNOSTIC IMPRESSION: Patient admitted to the hospital with fever, increased shortness of breath and cough with congestion secondary to COVID-19 pneumonia in this patient with moderate illness and high risk of progression into respiratory failure with no evidence of any secondary bacterial pneumonia. PLAN: 1. The patient started on remdesivir protocol to continue 200 mg a day and followed by 100 mg daily for 4 doses. 2. Dexamethasone, Lovenox, zinc, ascorbic acid. 3. Droplet isolation respiratory support. 4. We will follow on clinical condition and culture to further adjust medication if needed. Thank you for this consultation. Will follow this patient along with you. MMODL / IJN: [id number] /
[2020-07-06] MEDS: REMDESIVIR 100 MG in SODIUM CHLORIDE 0.9% 250 ML IVPB SCH (09:10)
[2020-07-06 11:53] LABS: Glucose,Whole Blood 142 mg/dL (75-99)
--- NOTE | 2020-07-06 11:57 | PN ---
PROGRESS NOTE DATE OF SERVICE: 07/05/2020 A 70-year-old white female with positive COVID pneumonia, COVID-19. She remains on standard COVID treatment. She is breathing a bit better than yesterday. Saturating mid 90s on 2 L. CARDIOVASCULAR: S1, S2. LUNGS: Are clear. GI: Soft. HEMATOLOGY: Negative Homans. ASSESSMENT: 1. COVID-19. 2. COVID pneumonia. 3. Multiple medical problems including obesity. Continue on the steroids, zinc, vitamin C, vitamin D. Prognosis extremely guarded, but she is improving. MMODL / IJN: [id number] /
--- NOTE | 2020-07-06 12:24 | P.PN ---
Subjective This is a pleasant 40 years old female with past medical history of diabetes mellitus, hypertension, hyperlipidemia, hypothyroidism, anxiety and depression. Presents because of coughing, shortness of breath and fever for about one week . Patient was admitted for bilateral carotid pneumonia as seen on the CAT scan of the chest. Patient is a closely by pulmonary service. Today patient is less dyspneic. She is saturating 93% on 4 L oxygen via nasal cannula. CBC showing mild leukopenia of 2.4K. Lymphopenic. D-dimer is elevated at 3.1 and 5.2 today. crp 13.2 and LDh 981. and sugar is controlled Creatinine 1.1 1.3. pro-calcitonin is elevated 0.[address] of the chest: No pulmonary embolism. Diffuse marked patchy ground glass and airspace opacity of both legs Patient currently kept on vitamin C, vitamin D, zinc, dexamethasone, Lovenox 40 mg daily, and she was started on remdesivir . Also patient is on normal saline at 50 mL/h Review of systems CONSTITUTIONAL: No fever, no malaise, no fatigue. HEENT: No recent visual problems or hearing problems. Denied any sore throat. CARDIOVASCULAR: No orthopnea, PND, no palpitations, no syncope. PULMONARY: No shortness of breath, no cough, no hemoptysis. GASTROINTESTINAL: No diarrhea, no nausea, no vomiting, no abdominal pain. Normoactive bowel sounds. NEUROLOGICAL: No headaches, no weakness, no numbness. Active Medications Generic Name Dose Route Start Last Admin Trade Name Freq PRN Reason Stop Dose Admin Acetaminophen 650 mg 07/04/20 18:45 Acetaminophen Tab 325 Mg Tab PO Q6HR PRN Mild Pain or Fever > 100.5 Alprazolam 0.25 mg 07/04/20 21:24 Alprazolam 0.25 Mg Tab PO BID PRN Anxiety Ascorbic Acid 500 mg 07/04/20 21:00 07/06/20 09:02 Ascorbic Acid 500 Mg Tab PO 500 mg BID JEANINE Administration Aspirin 81 mg 07/05/20 09:00 07/06/20 09:03 Aspirin 81 Mg PO 81 mg DAILY JEANINE Administration Atorvastatin Calcium 20 mg 07/05/20 09:00 07/06/20 09:02 Atorvastatin 20 Mg Tab PO 20 mg DAILY JEANINE Administration Budesonide/Formoterol Fumarate 2 puff 07/04/20 22:56 07/06/20 08:12 Symbicort 80-4.5 Mcg Inhaler INHALATION 2 puff RT-BID JEANINE Administration Bupropion HCl 150 mg 07/04/20 21:30 07/06/20 09:03 Bupropion Sr 150 Mg Tablet.Er PO 150 mg BID JEANINE Administration Cholecalciferol 125 mcg 07/05/20 09:00 07/06/20 09:03 Cholecalciferol 25 Mcg (1000 Iu) Tablet PO 125 mcg DAILY JEANINE Administration Dexamethasone Sodium Phosphate 6 mg 07/05/20 09:00 07/06/20 09:03 Dexamethasone Sod Phosphate 10 Mg/Ml 1 Ml Vial IV 6 mg DAILY JEANINE Administration Ezetimibe 10 mg 07/05/20 09:00 07/06/20 09:02 Ezetimibe 10 Mg Tab PO 10 mg DAILY JEANINE Administration Enoxaparin Sodium 40 mg 07/06/20 09:00 07/06/20 09:03 Enoxaparin 40 Mg/0.4 Ml Syringe SQ 40 mg DAILY JEANINE Administration Gabapentin 100 mg 07/04/20 22:00 07/06/20 09:02 Gabapentin 100 Mg Cap PO 100 mg TID JEANINE Administration HCTZ/Losartan Potassium 1 each 07/05/20 09:00 07/06/20 09:32 Losartan-Hctz 50-12.5 Mg 1 Each Tab PO Not Given DAILY [facility] Sodium Chloride 1,000 mls @ 50 mls/hr 07/04/20 18:45 07/06/20 09:04 Saline 0.9% IV 50 mls/hr .Q20H JEANINE Administration Remdesivir 100 mg/ Sodium 250 mls @ 250 mls/hr 07/06/20 14:00 07/06/20 09:10 Chloride IVPB 07/09/20 14:59 250 mls/hr DAILY@1400 JEANINE Administration Insulin Aspart 0 unit 07/05/20 07:30 07/06/20 07:31 Insulin Aspart (Novolog) 100 Unit/Ml Vial SQ 6 unit ACHS JEANINE Administration Protocol Insulin Aspart 5 unit 07/05/20 17:30 07/06/20 07:30 Insulin Aspart (Novolog) 100 Unit/Ml Vial SQ 5 unit AC-TID JEANINE Administration Levothyroxine Sodium 200 mcg 07/05/20 06:30 07/06/20 06:37 Levothyroxine 100 Mcg Tab PO 200 mcg DAILY@0630 JEANINE Administration Linagliptin 5 mg 07/04/20 21:30 07/05/20 21:19 Linagliptin 5 Mg Tablet PO 5 mg DAILY@2100 JEANINE Administration Memantine 10 mg 07/04/20 21:40 07/06/20 09:02 Memantine 10 Mg Tab PO 10 mg BID JEANINE Administration Metformin HCl 500 mg 07/04/20 21:45 07/06/20 09:03 Metformin 500 Mg Tab PO 500 mg BID JEANINE Administration Naloxone HCl 0.2 mg 07/04/20 18:45 Naloxone 0.4 Mg/Ml 1 Ml Vial IV Q2M PRN Opioid Reversal Oxybutynin Chloride 5 mg 07/05/20 09:00 07/06/20 09:03 Oxybutynin Xl 5 Mg Tab.Er.24 PO 5 mg DAILY JEANINE Administration Pantoprazole Sodium 40 mg 07/05/20 07:30 07/06/20 06:37 Pantoprazole 40 Mg Tablet PO 40 mg [id number]-[id number] JEANINE Administration Zinc Sulfate 220 mg 07/05/20 09:00 07/06/20 09:02 Zinc Sulfate 220 Mg Cap PO 220 mg DAILY JEANINE Administration Objective - Vital Signs Vital signs: Vital Signs Temp 97.6 F 07/06/20 09:26 Pulse 71 07/06/20 09:26 Resp 20 07/06/20 09:26 BP 87/52 07/06/20 09:26 Pulse Ox 93 L 07/06/20 09:26 Intake & Output 07/05/20 07/06/20 07/06/20 18:59 06:59 18:59 Intake Total 790 210 Output Total 300 Balance 490 210 Intake: IV 10 10 Invasive Line 1 10 Invasive Line 2 10 Oral 780 200 Output: Urine 300 Other: Voiding Method Toilet # Voids 1 - Exam GENERAL: The patient is alert and oriented x3, not in any acute distress. Well developed, well nourished. HEENT: Pupils are round and equally reacting to light. EOMI. No scleral icterus. No conjunctival pallor. Normocephalic, atraumatic. No pharyngeal erythema. No thyromegaly. CARDIOVASCULAR: S1 and S2 present. No murmurs, rubs, or gallops. PULMONARY: Chest is clear to auscultation, no wheezing or crackles. ABDOMEN: Soft, nontender, nondistended, normoactive bowel sounds. No palpable organomegaly. MUSCULOSKELETAL: No joint swelling or deformity. EXTREMITIES: No cyanosis, clubbing, or pedal edema. NEUROLOGICAL: Gross neurological examination did not reveal any focal deficits. SKIN: No rashes. no petechiae. - Labs CBC & Chem 7: 07/05/20 09:07 07/05/20 09:07 Labs: Abnormal Lab Results - Last 24 Hours (Table) 07/04/20 07/04/20 07/04/20 Range/Units 14:27 14:27 20:20 D-Dimer (<0.60) mg/L FEU POC Glucose (mg/dL) (75-99) mg/dL Ferritin 505.1 H (10.0-291.0) ng/mL Lactate Dehydrogenase (313-618) U/L C-Reactive Protein (<1.0) mg/dL Procalcitonin 0.19 H (0.02-0.09) ng/mL Coronavirus (PCR) Detected A (Not Detected) 07/05/20 07/05/20 07/05/20 Range/Units 16:43 16:59 16:59 D-Dimer 5.26 H (<0.60) mg/L FEU POC Glucose (mg/dL) 275 H (75-99) mg/dL Ferritin (10.0-291.0) ng/mL Lactate Dehydrogenase 981 H (313-618) U/L C-Reactive Protein 13.2 H (<1.0) mg/dL Procalcitonin (0.02-0.09) ng/mL Coronavirus (PCR) (Not Detected) 07/05/20 07/06/20 07/06/20 Range/Units 20:50 06:03 11:51 D-Dimer (<0.60) mg/L FEU POC Glucose (mg/dL) 199 H 203 H 142 H (75-99) mg/dL Ferritin (10.0-291.0) ng/mL Lactate Dehydrogenase (313-618) U/L C-Reactive Protein (<1.0) mg/dL Procalcitonin (0.02-0.09) ng/mL Coronavirus (PCR) (Not Detected) Microbiology - Last 24 Hours (Table) 07/04/20 14:27 Blood Culture - Preliminary Blood No Growth after 24 hours 07/04/20 14:33 Blood Culture - Preliminary Blood No Growth after 24 hours Assessment and Plan Assessment: Bilateral carotid pneumonia Acute hypoxic respiratory failure. Decreased inflammatory markers Acute kidney injury versus chronic kidney disease Hypertension Hyperlipidemia Diabetes mellitus. Hypothyroidism History of anxiety or depression normoactive tissue Plan: This is a pleasant 70 years old female who presents with cold pneumonia. Continue with remdesivir , continue with vitamin C, D and syncope. Also on Lovenox and dexamethasone. Pulmonary consult Labs and medication were reviewed.. Continue same treatment. Continue with symptomatic treatment. Resume home medication. Monitor lytes and vitals. DVT and GI prophylaxis. Further recommendations depends on the clinical course of the patient DVT prophylaxis: Subcutaneous Lovenox GI Prophylaxis: Ppi Prognosis is guarded
--- NOTE | 2020-07-06 16:00 | PN ---
PROGRESS NOTE DATE OF SERVICE: 07/06/2020. REASON FOR FOLLOWUP: COVID-19 pneumonia. INTERVAL HISTORY: The patient is currently afebrile. The patient is breathing more comfortably. The patient denies having any chest pain. She did have a cough, not bringing up any sputum. No abdominal pain or diarrhea. PHYSICAL EXAMINATION: Blood pressure 98/55, pulse of 69, temperature 97.5. She is 93% on 4 L nasal cannula. General description is an elderly female up in the bed in no distress. RESPIRATORY SYSTEM: Unlabored breathing, decreased intensity of breath sounds. No wheeze. HEART: S1, S2. Regular rate and rhythm. ABDOMEN: Soft. No tenderness. LABS: D-dimer is slightly up to 5.26. LDH 981. CRP 13.2. DIAGNOSTIC IMPRESSION AND PLAN: Patient with COVID-19 pneumonia. The patient is currently on remdesivir, day #2 in addition to Lovenox, dexamethasone, zinc, ascorbic acid. Monitor clinical course closely. Continue supportive care. MMODL / IJN: [id number] /
--- NOTE | 2020-07-06 16:27 | P.PN ---
Subjective Progress Note Date: 07/06/20 Principal diagnosis: Acute hypoxic respiratory failure secondary to acute COVID-19 pneumonia. his is a 70-year-old female with 1 week history of multiple constitutional symptoms including cough, congestion, shortness of breath, weakness, aches and pains, elevated in the ER, patient had a positive PCR for muniz virus. And she had CT of the chest consistent with acute COVID-19 pneumonitis. Patient required 2 L of oxygen and her O2 sats is 94% on 2 L. CBC showed a relative leukopenia. Normal platelets, normal electrolytes. Renal profile is abnormal with BUN of 40 creatinine of 1.33, blood sugar was 305 no inflammatory markers were ordered. Patient was admitted, and this consult was initiated. After evaluating the patient, I did recommend that we start the patient on REM since her symptoms are only 1-week-old. And the patient is requiring minimal amount of oxygen. She is already on Decadron. Already on Lovenox, and she is already on vitamins as well as zinc. I discontinued her oral antibiotics and IV antibiotics as I felt there is no need for them to be on board. Clearly the presentation is a presentation of acute COVID-19 pneumonitis. Based on her ch est x-ray and CT chest findings as well as the clinical history and the fact that she has a positive PCR. Reevaluated today on 07/06/2020, patient seems to be doing better. Remains on 4 L nasal cannula, O2 saturations 93%. Patient is afebrile, she is hemodynamically stable. Not in any distress. I saw this patient yesterday, and I recommended that we start the patient on the COVID-19 cocktail, I also recommended REM. CBC showed mild leukopenia. Normal platelets. Low lymphocytes. Elevated d-dimer of 5.26. Renal profile is a bit worse with creatinine of 1.33. Sugar is 199. LDH is down to 981. C-reactive protein is down to 13.2. Clinically the patient is improving. Objective - Vital Signs Vital signs: Vital Signs Temp 97.6 F 07/06/20 09:26 Pulse 71 07/06/20 09:26 Resp 20 07/06/20 09:26 BP 87/52 07/06/20 09:26 Pulse Ox 93 L 07/06/20 09:26 Intake & Output 07/05/20 07/06/2021 18:59 06:59 18:59 Intake Total 790 450 Output Total 300 Balance 490 450 Intake: IV 10 10 Invasive Line 1 10 Invasive Line 2 10 Oral 780 440 Output: Urine 300 Other: Voiding Method Toilet # Voids 1 1 - Exam Physical Exam revealed 70-year-old female in no distress. On 4 L nasal cannula. Head: Atraumatic, normocephalic. HEENT:[Neck is supple.] [No neck masses.] [No thyromegaly.] [No JVD.] Chest: [[employer] chest expansion, crackles at the bases, no rhonchi no wheezes. Cardiac Exam: [Normal S1 and S2, no S3 gallop, no murmur.] Abdomen: [Soft, nontender, no megaly, no rebound, no guarding, normal bowel sounds.] Extremities: [No clubbing, no edema, no cyanosis.] Neurological Exam: [No focal neurologic deficit.] Alert and oriented 3. Psychiatric: Normal mood, affect and normal mental status examination. Skin: No rashes. Musko skeletal: No deformities and no limitation in range of motion. - Labs CBC & Chem 7: 07/05/20 09:07 07/05/20 09:07 Labs: Abnormal Lab Results - Last 24 Hours (Table) 07/04/20 07/05/20 07/05/20 Range/Units 14:27 16:43 16:59 D-Dimer (<0.60) mg/L FEU POC Glucose (mg/dL) 275 H (75-99) mg/dL Lactate Dehydrogenase 981 H (313-618) U/L C-Reactive Protein 13.2 H (<1.0) mg/dL Procalcitonin 0.19 H (0.02-0.09) ng/mL 07/05/20 07/05/20 07/06/20 Range/Units 16:59 20:50 06:03 D-Dimer 5.26 H (<0.60) mg/L FEU POC Glucose (mg/dL) 199 H 203 H (75-99) mg/dL Lactate Dehydrogenase (313-618) U/L C-Reactive Protein (<1.0) mg/dL Procalcitonin (0.02-0.09) ng/mL 07/06/20 Range/Units 11:51 D-Dimer (<0.60) mg/L FEU POC Glucose (mg/dL) 142 H (75-99) mg/dL Lactate Dehydrogenase (313-618) U/L C-Reactive Protein (<1.0) mg/dL Procalcitonin (0.02-0.09) ng/mL Microbiology - Last 24 Hours (Table) 07/04/20 14:27 Blood Culture - Preliminary Blood No Growth after 24 hours 07/04/20 14:33 Blood Culture - Preliminary Blood No Growth after 24 hours Assessment and Plan Assessment: Impression: Acute hypoxic respiratory failure secondary to acute COVID-19 pneumonia History of type 2 diabetes. Dyslipidemia. Benign essential hypertension. Recommendation: Continue REM. Continue the COVID-19 cocktail. Continue oxygen and titrate accordingly. Continue Lovenox. Continue Decadron. Continue droplet isolation. Incentive spirometer. We'll continue to follow. Time with Patient: Less than 30
[2020-07-06 16:49] LABS: Glucose,Whole Blood 216 mg/dL (75-99)
[2020-07-06] MEDS ORDERED: BENZOCAINE/MENTHOL LOZENG 1 EACH LOZENGE MUCOUS MEM PRN (18:11)
[2020-07-06 20:21] LABS: Glucose,Whole Blood 221 mg/dL (75-99)
[2020-07-06] MEDS: LINAGLIPTIN 5 MG TABLET PO SCH (20:38)
[2020-07-07] MEDS: LEVOTHYROXINE 100 MCG TAB PO SCH (06:01)
[2020-07-07] MEDS: PANTOPRAZOLE 40 MG TABLET PO SCH (06:01)
[2020-07-07 06:03] LABS: Glucose,Whole Blood 99 mg/dL (75-99)
[2020-07-07] MEDS: INSULIN ASPART (NovoLOG) 100 UNIT/ML VIAL SQ SCH ×7 (06:06→21:22)
[2020-07-07] MEDS: SYMBICORT 80-4.5 MCG INHALER INHALATION SCH ×2 (08:08→20:57)
[2020-07-07] MEDS: ENOXAPARIN 40 MG/0.4 ML SYRINGE SQ SCH (10:16)
[2020-07-07] MEDS: REMDESIVIR 100 MG in SODIUM CHLORIDE 0.9% 250 ML IVPB SCH (10:16)
[2020-07-07] MEDS: ASPIRIN 81 MG PO SCH (10:17)
[2020-07-07] MEDS: CHOLECALCIFEROL 25 MCG (1000 IU) TABLET PO SCH (10:17)
[2020-07-07] MEDS: EZETIMIBE 10 MG TAB PO SCH (10:17)
[2020-07-07] MEDS: LOSARTAN-HCTZ 50-12.5 MG 1 EACH TAB PO SCH (10:17)
[2020-07-07] MEDS: GABAPENTIN 100 MG CAP PO SCH ×3 (10:17→21:22)
[2020-07-07] MEDS: buPROPion SR 150 MG TABLET.ER PO SCH ×2 (10:17→21:22)
[2020-07-07] MEDS: ASCORBIC ACID 500 MG TAB PO SCH ×2 (10:18→21:22)
[2020-07-07] MEDS: ZINC SULFATE 220 MG CAP PO SCH (10:18)
[2020-07-07] MEDS: OXYBUTYNIN XL 5 MG TAB.ER.24 PO SCH (10:18)
[2020-07-07] MEDS: metFORMIN 500 MG TAB PO SCH ×2 (10:18→21:22)
[2020-07-07] MEDS: ATORVASTATIN 20 MG TAB PO SCH (10:18)
[2020-07-07] MEDS: DEXAMETHASONE SOD PHOSPHATE 10 MG/ML 1 ML VIAL IV SCH (10:18)
[2020-07-07] MEDS: MEMANTINE 10 MG TAB PO SCH ×2 (10:18→21:22)
[2020-07-07] MEDS: SODIUM CHLORIDE 0.9% 1,000 ML IV SCH (10:19)
[2020-07-07 11:30] LABS: C Reactive Protein 3.4 mg/dL (<1.0); Calcium 9.4 mg/dL (8.4-10.2); Potassium 4.4 mmol/L (3.5-5.1)
[2020-07-07 11:44] LABS: Basophils % (A) 0 %; Eosinophils % (A) 0 %; HCT 37.9 % (34.0-46.0); HGB 11.9 gm/dL (11.4-16.0); Hypochromasia Slight; Lymphocytes # (A) 0.6 k/uL (1.0-4.8); Lymphocytes % (A) 8 %; MCH 28.9 pg (25.0-35.0); MCHC 31.5 g/dL (31.0-37.0); MCV 91.7 fL (80.0-100.0); Mean Platelet Volume 7.7; Monocytes # (A) 0.3 k/uL (0-1.0); Monocytes % (A) 4 %; Neutrophils # (A) 6.2 k/uL (1.3-7.7); Neutrophils % (A) 85 %; Platelet Count 395 k/uL (150-450); RBC 4.13 m/uL (3.80-5.40); RDW 14.6 % (11.5-15.5); WBC 7.3 k/uL (3.8-10.6)
[2020-07-07 12:02] LABS: Glucose,Whole Blood 147 mg/dL (75-99)
--- NOTE | 2020-07-07 12:21 | P.PN ---
Subjective This is a pleasant 40 years old female with past medical history of diabetes mellitus, hypertension, hyperlipidemia, hypothyroidism, anxiety and depression. Presents because of coughing, shortness of breath and fever for about one week . Patient was admitted for bilateral carotid pneumonia as seen on the CAT scan of the chest. Patient is a closely by pulmonary service. Today patient is less dyspneic. She is saturating 93% on 4 L oxygen via nasal cannula. CBC showing mild leukopenia of 2.4K. Lymphopenic. D-dimer is elevated at 3.1 and 5.2 today. crp 13.2 and LDh 981. and sugar is controlled Creatinine 1.1 1.3. pro-calcitonin is elevated 0.[address] of the chest: No pulmonary embolism. Diffuse marked patchy ground glass and airspace opacity of both legs Patient currently kept on vitamin C, vitamin D, zinc, dexamethasone, Lovenox 40 mg daily, and she was started on remdesivir . Also patient is on normal saline at 50 mL/h 07/07/2020 Patient breathing same as yesterday with no much change especially if she is going to the bathroom she got really short of breath. Still has some coughing but no significant chest pain. She had one bowel movement yesterday which were loose. Her oxygen saturation remains at low 90s with oxygen of 4 L/m Labs showing actually improvement in d-dimer down to 2.2, LDH slightly down to 877 and C-reactive protein is significantly down to 3.4. Creatinine is stable since admission at 1.3. Most likely related to chronic kidney disease. Patient remains on dexamethasone, vitamin C, D and zinc. Today her third dose of remdesivir. Also she is on gentle hydration with normal saline 50 mL/h. She is on metformin, Virginia Lapine and NovoLog 5 units with meals. Also she is on Namenda Objective - Vital Signs Vital signs: Vital Signs Temp 97.6 F 07/07/20 08:00 Pulse 76 07/07/20 08:00 Resp 18 07/07/20 08:00 BP 109/58 07/07/20 08:00 Pulse Ox 90 L 07/07/20 08:00 Intake & Output 07/06/20 07/07/20 07/07/20 18:59 06:59 18:59 Intake Total 718 38 6382 Output Total 0 Balance 589 01 5592 Intake: IV 20 20 660 Invasive Line 2 20 20 10 Remdesivir 100 mg In 250 Sodium Chloride 0.9% 250 ml @ 250 mls/hr IVPB DAILY@1400 [facility] Rx#: [id number] Sodium Chloride 0.9% 1, 400 000 ml @ 50 mls/hr IV . Q20H [facility] Rx#:[id number] Oral 740 840 Output: Urine 0 Other: Voiding Method Toilet Toilet # Voids 1 1 - Exam GENERAL: The patient is alert and oriented x3, not in any acute distress. Well developed, well nourished. HEENT: Pupils are round and equally reacting to light. EOMI. No scleral icterus. No conjunctival pallor. Normocephalic, atraumatic. No pharyngeal erythema. No thyromegaly. CARDIOVASCULAR: S1 and S2 present. No murmurs, rubs, or gallops. PULMONARY: Chest is clear to auscultation, no wheezing or crackles. ABDOMEN: Soft, nontender, nondistended, normoactive bowel sounds. No palpable organomegaly. MUSCULOSKELETAL: No joint swelling or deformity. EXTREMITIES: No cyanosis, clubbing, or pedal edema. NEUROLOGICAL: Gross neurological examination did not reveal any focal deficits. SKIN: No rashes. no petechiae. - Labs CBC & Chem 7: 07/07/20 10:05 07/07/20 10:05 Labs: Abnormal Lab Results - Last 24 Hours (Table) 07/06/20 07/06/20 07/07/20 Range/Units 16:47 20:18 10:05 Lymphocytes # 0.6 L (1.0-4.8) k/uL D-Dimer (<0.60) mg/L FEU Chloride (98-107) mmol/L BUN (7-17) mg/dL Creatinine (0.52-1.04) mg/dL Glucose (74-99) mg/dL POC Glucose (mg/dL) 216 H 221 H (75-99) mg/dL Lactate Dehydrogenase (313-618) U/L C-Reactive Protein (<1.0) mg/dL 07/07/20 07/07/20 07/07/20 Range/Units 10:05 10:05 12:00 Lymphocytes # (1.0-4.8) k/uL D-Dimer 2.27 H (<0.60) mg/L FEU Chloride 108 H (98-107) mmol/L BUN 46 H (7-17) mg/dL Creatinine 1.34 H (0.52-1.04) mg/dL Glucose 146 H (74-99) mg/dL POC Glucose (mg/dL) 147 H (75-99) mg/dL Lactate Dehydrogenase 877 H (313-618) U/L C-Reactive Protein 3.4 H (<1.0) mg/dL Microbiology - Last 24 Hours (Table) 07/04/20 14:27 Blood Culture - Preliminary Blood No Growth after 48 hours 07/04/20 14:33 Blood Culture - Preliminary Blood No Growth after 48 hours Assessment and Plan Assessment: Bilateral covidpneumonia Acute hypoxic respiratory failure. Decreased inflammatory markers Acute kidney injury versus chronic kidney disease Hypertension Hyperlipidemia Diabetes mellitus. Hypothyroidism History of anxiety or depression normoactive tissue Plan: This is a pleasant 70 years old female who presents with cold pneumonia. Continue with remdesivir , continue with vitamin C, D and syncope. Also on Lovenox and dexamethasone. Pulmonary consult Labs and medication were reviewed.. Continue same treatment. Continue with symptomatic treatment. Resume home medication. Monitor lytes and vitals. DVT and GI prophylaxis. Further recommendations depends on the clinical course of the patient DVT prophylaxis: Subcutaneous Lovenox GI Prophylaxis: Ppi Prognosis is guarded
[2020-07-07 16:58] LABS: Glucose,Whole Blood 179 mg/dL (75-99)
--- NOTE | 2020-07-07 17:04 | P.PN ---
Subjective Progress Note Date: 07/07/20 Principal diagnosis: Acute hypoxic respiratory failure secondary to acute COVID-19 pneumonia. his is a 70-year-old female with 1 week history of multiple constitutional symptoms including cough, congestion, shortness of breath, weakness, aches and pains, elevated in the ER, patient had a positive PCR for muniz virus. And she had CT of the chest consistent with acute COVID-19 pneumonitis. Patient required 2 L of oxygen and her O2 sats is 94% on 2 L. CBC showed a relative leukopenia. Normal platelets, normal electrolytes. Renal profile is abnormal with BUN of 40 creatinine of 1.33, blood sugar was 305 no inflammatory markers were ordered. Patient was admitted, and this consult was initiated. After evaluating the patient, I did recommend that we start the patient on REM since her symptoms are only 1-week-old. And the patient is requiring minimal amount of oxygen. She is already on Decadron. Already on Lovenox, and she is already on vitamins as well as zinc. I discontinued her oral antibiotics and IV antibiotics as I felt there is no need for them to be on board. Clearly the presentation is a presentation of acute COVID-19 pneumonitis. Based on her ch est x-ray and CT chest findings as well as the clinical history and the fact that she has a positive PCR. Reevaluated today on 07/06/2020, patient seems to be doing better. Remains on 4 L nasal cannula, O2 saturations 93%. Patient is afebrile, she is hemodynamically stable. Not in any distress. I saw this patient yesterday, and I recommended that we start the patient on the COVID-19 cocktail, I also recommended REM. CBC showed mild leukopenia. Normal platelets. Low lymphocytes. Elevated d-dimer of 5.26. Renal profile is a bit worse with creatinine of 1.33. Sugar is 199. LDH is down to 981. C-reactive protein is down to 13.2. Clinically the patient is improving. Patient was reevaluated today on 07/07/2020, patient is breathing easier today, feeling better, she has mostly dyspnea on exertion and minimal cough, no chest pain. She is now on 4 L nasal cannula, and her O2 saturations in the 90s. Her inflammatory markers are significantly improved with LDH down to 877 C-reactive protein down to 3.4. D-dimer is 2.2. Creatinine is 1.3. Patient remains on Decadron, vitamin C, D, zinc, and she is on REM. She is also being hydrated. Sugars are under control Objective - Vital Signs Vital signs: Vital Signs Temp 97.2 F L 07/07/20 12:00 Pulse 74 07/07/20 12:00 Resp 18 07/07/20 12:11 BP 105/60 07/07/20 12:00 Pulse Ox 93 L 07/07/20 12:11 Intake & Output 07/06/20 07/07/20 07/07/20 18:59 06:59 18:59 Intake Total 545 05 0787 Output Total 0 Balance 988 79 1672 Intake: IV 20 20 670 Invasive Line 2 20 20 20 Remdesivir 100 mg In 250 Sodium Chloride 0.9% 250 ml @ 250 mls/hr IVPB DAILY@1400 [facility] Rx#: [id number] Sodium Chloride 0.9% 1, 400 000 ml @ 50 mls/hr IV . Q20H [facility] Rx#:[id number] Oral 740 1200 Output: Urine 0 Other: Voiding Method Toilet Toilet # Voids 1 1 - Exam Physical Exam revealed 70-year-old female in no distress. On 2 L nasal cannula. O2 saturation is 93%, she was saturating 96% on 4 L earlier Head: Atraumatic, normocephalic. HEENT:[Neck is supple.] [No neck masses.] [No thyromegaly.] [No JVD.] Chest: [[employer] chest expansion, crackles at the bases, no rhonchi no wheezes. Cardiac Exam: [Normal S1 and S2, no S3 gallop, no murmur.] Abdomen: [Soft, nontender, no megaly, no rebound, no guarding, normal bowel sounds.] Extremities: [No clubbing, no edema, no cyanosis.] Neurological Exam: [No focal neurologic deficit.] Alert and oriented 3. Psychiatric: Normal mood, affect and normal mental status examination. Skin: No rashes. Musko skeletal: No deformities and no limitation in range of motion. - Labs CBC & Chem 7: 07/07/20 10:05 07/07/20 10:05 Labs: Abnormal Lab Results - Last 24 Hours (Table) 07/06/20 07/07/2021 Range/Units 20:18 10:05 10:05 Lymphocytes # 0.6 L (1.0-4.8) k/uL D-Dimer 2.27 H (<0.60) mg/L FEU Chloride (98-107) mmol/L BUN (7-17) mg/dL Creatinine (0.52-1.04) mg/dL Glucose (74-99) mg/dL POC Glucose (mg/dL) 221 H (75-99) mg/dL Lactate Dehydrogenase (313-618) U/L C-Reactive Protein (<1.0) mg/dL 07/07/20 07/07/20 07/07/20 Range/Units 10:05 12:00 16:56 Lymphocytes # (1.0-4.8) k/uL D-Dimer (<0.60) mg/L FEU Chloride 108 H (98-107) mmol/L BUN 46 H (7-17) mg/dL Creatinine 1.34 H (0.52-1.04) mg/dL Glucose 146 H (74-99) mg/dL POC Glucose (mg/dL) 147 H 179 H (75-99) mg/dL Lactate Dehydrogenase 877 H (313-618) U/L C-Reactive Protein 3.4 H (<1.0) mg/dL Microbiology - Last 24 Hours (Table) 07/04/20 14:27 Blood Culture - Preliminary Blood No Growth after 72 hours 07/04/20 14:33 Blood Culture - Preliminary Blood No Growth after 72 hours Assessment and Plan Assessment: Impression: Acute hypoxic respiratory failure secondary to acute COVID-19 pneumonia History of type 2 diabetes. Dyslipidemia. Benign essential hypertension. Recommendation: Continue REM. Continue the COVID-19 cocktail. Continue oxygen and titrate accordingly. Continue Lovenox. Continue Decadron. Continue droplet isolation. Incentive spirometer. Will consider discharge planning after her full course of REM/. Time with Patient: Less than 30
[2020-07-07 20:11] LABS: Glucose,Whole Blood 265 mg/dL (75-99)
[2020-07-07] MEDS: LINAGLIPTIN 5 MG TABLET PO SCH (21:22)
[2020-07-08] MEDS: SODIUM CHLORIDE 0.9% 1,000 ML IV SCH ×2 (06:03→23:08)
--- NOTE | 2020-07-08 06:03 | PN ---
PROGRESS NOTE DATE OF SERVICE: 07/07/2020 REASON FOR FOLLOWUP: COVID-19 pneumonia. INTERVAL HISTORY: Patient is currently afebrile. The patient is breathing comfortably. Patient denies having any chest pain. Did have a cough, no worsening. No nausea, no vomiting. No abdominal pain, no diarrhea. PHYSICAL EXAMINATION: VITAL SIGNS: Blood pressure 106/59, pulse of 80, temperature 97.6. She is 91% on 2 L nasal cannula. General description is an elderly female up in the chair in no distress. Respiratory system: Unlabored breathing, decreased intensity of breath sounds. No wheeze. HEART: S1, S2. Regular rate and rhythm. ABDOMEN: Soft, no tenderness. LABS: Hemoglobin is 11.1, white count 7.3, BUN of 46, creatinine 1.34. DIAGNOSTIC IMPRESSION AND PLAN: Patient with acute COVID-19 pneumonia in this patient currently covered with remdesivir, dexamethasone, zinc and ascorbic acid, and Lovenox to continue while monitoring clinical course closely. Continue supportive care. MMODL / IJN: [id number] /
[2020-07-08 06:18] LABS: Glucose,Whole Blood 94 mg/dL (75-99)
[2020-07-08] MEDS: INSULIN ASPART (NovoLOG) 100 UNIT/ML VIAL SQ SCH ×7 (06:21→21:13)
[2020-07-08] MEDS: LEVOTHYROXINE 100 MCG TAB PO SCH (06:54)
[2020-07-08] MEDS: PANTOPRAZOLE 40 MG TABLET PO SCH (06:54)
[2020-07-08] MEDS: SYMBICORT 80-4.5 MCG INHALER INHALATION SCH ×2 (08:27→20:09)
[2020-07-08 09:07] LABS: Basophils % (A) 1 %; Eosinophils % (A) 1 %; HCT 35.4 % (34.0-46.0); HGB 11.8 gm/dL (11.4-16.0); Lymphocytes # (A) 0.8 k/uL (1.0-4.8); Lymphocytes % (A) 14 %; MCHC 33.4 g/dL (31.0-37.0); Mean Platelet Volume 7.5; Monocytes # (A) 0.5 k/uL (0-1.0); Monocytes % (A) 9 %; Neutrophils # (A) 4.2 k/uL (1.3-7.7); Neutrophils % (A) 75 %; Platelet Count 354 k/uL (150-450); RBC 3.93 m/uL (3.80-5.40); RDW 14.2 % (11.5-15.5); WBC 5.6 k/uL (3.8-10.6)
[2020-07-08 09:13] LABS: C Reactive Protein 3.1 mg/dL (<1.0); Calcium 9.4 mg/dL (8.4-10.2); Potassium 5.1 mmol/L (3.5-5.1)
[2020-07-08] MEDS: ENOXAPARIN 40 MG/0.4 ML SYRINGE SQ SCH (10:07)
[2020-07-08] MEDS: metFORMIN 500 MG TAB PO SCH ×2 (10:07→21:12)
[2020-07-08] MEDS: GABAPENTIN 100 MG CAP PO SCH ×3 (10:07→21:12)
[2020-07-08] MEDS: REMDESIVIR 100 MG in SODIUM CHLORIDE 0.9% 250 ML IVPB SCH (10:07)
[2020-07-08] MEDS: LOSARTAN-HCTZ 50-12.5 MG 1 EACH TAB PO SCH (10:07)
[2020-07-08] MEDS: ASCORBIC ACID 500 MG TAB PO SCH ×2 (10:07→21:12)
[2020-07-08] MEDS: buPROPion SR 150 MG TABLET.ER PO SCH ×2 (10:08→23:07)
[2020-07-08] MEDS: DEXAMETHASONE SOD PHOSPHATE 10 MG/ML 1 ML VIAL IV SCH (10:08)
[2020-07-08] MEDS: ZINC SULFATE 220 MG CAP PO SCH (10:08)
[2020-07-08] MEDS: EZETIMIBE 10 MG TAB PO SCH (10:08)
[2020-07-08] MEDS: ASPIRIN 81 MG PO SCH (10:08)
[2020-07-08] MEDS: ATORVASTATIN 20 MG TAB PO SCH (10:08)
[2020-07-08] MEDS: MEMANTINE 10 MG TAB PO SCH ×2 (10:08→21:12)
[2020-07-08] MEDS: OXYBUTYNIN XL 5 MG TAB.ER.24 PO SCH (10:08)
[2020-07-08] MEDS: CHOLECALCIFEROL 25 MCG (1000 IU) TABLET PO SCH (10:08)
[2020-07-08 11:36] LABS: Glucose,Whole Blood 121 mg/dL (75-99)
[2020-07-08 16:29] LABS: Glucose,Whole Blood 209 mg/dL (75-99)
--- NOTE | 2020-07-08 17:03 | P.PN ---
Subjective Progress Note Date: 07/08/20 Principal diagnosis: Acute hypoxic respiratory failure secondary to acute COVID-19 pneumonia. his is a 70-year-old female with 1 week history of multiple constitutional symptoms including cough, congestion, shortness of breath, weakness, aches and pains, elevated in the ER, patient had a positive PCR for muniz virus. And she had CT of the chest consistent with acute COVID-19 pneumonitis. Patient required 2 L of oxygen and her O2 sats is 94% on 2 L. CBC showed a relative leukopenia. Normal platelets, normal electrolytes. Renal profile is abnormal with BUN of 40 creatinine of 1.33, blood sugar was 305 no inflammatory markers were ordered. Patient was admitted, and this consult was initiated. After evaluating the patient, I did recommend that we start the patient on REM since her symptoms are only 1-week-old. And the patient is requiring minimal amount of oxygen. She is already on Decadron. Already on Lovenox, and she is already on vitamins as well as zinc. I discontinued her oral antibiotics and IV antibiotics as I felt there is no need for them to be on board. Clearly the presentation is a presentation of acute COVID-19 pneumonitis. Based on her ch est x-ray and CT chest findings as well as the clinical history and the fact that she has a positive PCR. Reevaluated today on 07/06/2020, patient seems to be doing better. Remains on 4 L nasal cannula, O2 saturations 93%. Patient is afebrile, she is hemodynamically stable. Not in any distress. I saw this patient yesterday, and I recommended that we start the patient on the COVID-19 cocktail, I also recommended REM. CBC showed mild leukopenia. Normal platelets. Low lymphocytes. Elevated d-dimer of 5.26. Renal profile is a bit worse with creatinine of 1.33. Sugar is 199. LDH is down to 981. C-reactive protein is down to 13.2. Clinically the patient is improving. Patient was reevaluated today on 07/07/2020, patient is breathing easier today, feeling better, she has mostly dyspnea on exertion and minimal cough, no chest pain. She is now on 4 L nasal cannula, and her O2 saturations in the 90s. Her inflammatory markers are significantly improved with LDH down to 877 C-reactive protein down to 3.4. D-dimer is 2.2. Creatinine is 1.3. Patient remains on Decadron, vitamin C, D, zinc, and she is on REM. She is also being hydrated. Sugars are under control Reevaluated today on 07/08/2020, patient is doing better, breathing easier, she is on 2 L nasal cannula, O2 saturation is ranging between 87 up to 91. She continues to have slight dyspnea on exertion. Patient is finishing REM, and I believe tomorrow will be her fifth dose. Hence would consider discharging the patient home once she is done with her REM dosing. May however need to be on oxygen at home. Her LDH today is 789 and C-reactive protein is 3.1. D-dimer is 2.98 Objective - Vital Signs Vital signs: Vital Signs Temp 98.2 F 07/08/20 08:20 Pulse 80 07/08/20 08:20 Resp 18 07/08/20 08:20 BP 111/57 07/08/20 08:20 Pulse Ox 87 L 07/08/20 08:20 Intake & Output 07/07/20 07/08/20 07/08/20 18:59 06:59 18:59 Intake Total 2110 40 Balance 2110 40 Intake: IV 670 40 Invasive Line 2 20 40 Remdesivir 100 mg In 250 Sodium Chloride 0.9% 250 ml @ 250 mls/hr IVPB DAILY@1400 [facility] Rx#: [id number] Sodium Chloride 0.9% 1, 400 000 ml @ 50 mls/hr IV . Q20H [facility] Rx#:[id number] Oral 1440 Other: Voiding Method Toilet Toilet # Voids 1 1 - Exam Physical Exam revealed 70-year-old female in no distress. On 2 L nasal cannula. Relatively asymptomatic. Head: Atraumatic, normocephalic. HEENT:[Neck is supple.] [No neck masses.] [No thyromegaly.] [No JVD.] Chest: [[employer] chest expansion, crackles at the bases, no rhonchi no wheezes. Cardiac Exam: [Normal S1 and S2, no S3 gallop, no murmur.] Abdomen: [Soft, nontender, no megaly, no rebound, no guarding, normal bowel sounds.] Extremities: [No clubbing, no edema, no cyanosis.] Neurological Exam: [No focal neurologic deficit.] Alert and oriented 3. Psychiatric: Normal mood, affect and normal mental status examination. Skin: No rashes. Musko skeletal: No deformities and no limitation in range of motion. - Labs CBC & Chem 7: 07/08/20 07:58 07/08/20 07:58 Labs: Abnormal Lab Results - Last 24 Hours (Table) 07/07/20 07/07/20 07/08/20 Range/Units 10:05 20:08 07:58 Lymphocytes # 0.8 L (1.0-4.8) k/uL D-Dimer (<0.60) mg/L FEU Chloride (98-107) mmol/L BUN (7-17) mg/dL Creatinine (0.52-1.04) mg/dL POC Glucose (mg/dL) 265 H (75-99) mg/dL Lactate Dehydrogenase (313-618) U/L C-Reactive Protein (<1.0) mg/dL Procalcitonin 0.14 H (0.02-0.09) ng/mL 07/08/20 07/08/20 07/08/20 Range/Units 07:58 07:58 11:34 Lymphocytes # (1.0-4.8) k/uL D-Dimer 2.98 H (<0.60) mg/L FEU Chloride 109 H (98-107) mmol/L BUN 34 H (7-17) mg/dL Creatinine 1.09 H (0.52-1.04) mg/dL POC Glucose (mg/dL) 121 H (75-99) mg/dL Lactate Dehydrogenase 789 H (313-618) U/L C-Reactive Protein 3.1 H (<1.0) mg/dL Procalcitonin (0.02-0.09) ng/mL 07/08/20 Range/Units 16:27 Lymphocytes # (1.0-4.8) k/uL D-Dimer (<0.60) mg/L FEU Chloride (98-107) mmol/L BUN (7-17) mg/dL Creatinine (0.52-1.04) mg/dL POC Glucose (mg/dL) 209 H (75-99) mg/dL Lactate Dehydrogenase (313-618) U/L C-Reactive Protein (<1.0) mg/dL Procalcitonin (0.02-0.09) ng/mL Microbiology - Last 24 Hours (Table) 07/04/20 14:27 Blood Culture - Preliminary Blood No Growth after 96 hours 07/04/20 14:33 Blood Culture - Preliminary Blood No Growth after 96 hours Assessment and Plan Assessment: Impression: Acute hypoxic respiratory failure secondary to acute COVID-19 pneumonia History of type 2 diabetes. Dyslipidemia. Benign essential hypertension. Recommendation: Continue REM. Once finished, patient could be discharged home. Continue the COVID-19 cocktail. Continue oxygen and titrate accordingly. Continue Lovenox. Continue Decadron. Continue droplet isolation. Will consider discharge planning after her full course of REM/. Time with Patient: Less than 30
--- NOTE | 2020-07-08 17:57 | P.PN ---
Subjective Progress Note Date: 07/08/20 Principal diagnosis: Bilateral covid pneumonia Ms. Tran is a 70-year-old female with a past medical history of diabetes mellitus, hypertension, hyperlipidemia, thyroid disorder coming to the hospital with a chief complaint of difficulty in breathing. Patient had a CAT scan of the chest showing bilateral COVID-19 pneumonia with elevated inflammatory markers. On 07/08/2020- patient was seen and examined at the bedside. She states her breathing is pretty much the same compared to yesterday. She complains of ongoing cough. Denies having any fevers chills or rigors. No chest pain or palpitations. No abdominal pain nausea vomiting or diarrhea. She denies having any swelling of her lower extremities. On reviewing her vitals temperature of 98.2, heart rate 80, respiratory rate 18, blood pressure 1 11 x 57, saturating at low 90s on 2 L of oxygen. On reviewing her labs white count of 5.6, hemoglobin 9.8, platelets 354. D-dimer 2.98. Sodium 149, pressure by 0.1, chloride 109, bicarb 34, creatinine 1.09. CRP 3.1, LDH 718 9. Active Medications Acetaminophen (Acetaminophen Tab 325 Mg Tab) 650 mg PO Q6HR PRN PRN Reason: Mild Pain or Fever > 100.5 Alprazolam (Alprazolam 0.25 Mg Tab) 0.25 mg PO BID PRN PRN Reason: Anxiety Ascorbic Acid (Ascorbic Acid 500 Mg Tab) 500 mg PO BID [facility] Last Admin: 07/08/20 10:07 Dose: 500 mg Documented by: Aspirin (Aspirin 81 Mg) 81 mg PO DAILY [facility] Last Admin: 07/08/20 10:08 Dose: 81 mg Documented by: Atorvastatin Calcium (Atorvastatin 20 Mg Tab) 20 mg PO DAILY [facility] Last Admin: 07/08/20 10:08 Dose: 20 mg Documented by: Benzocaine/Menthol (Benzocaine/Menthol Lozeng 1 Each Lozenge) 1 each MUCOUS MEM Q4HR PRN PRN Reason: Cough Last Admin: 07/06/20 18:20 Dose: 1 each Documented by: Budesonide/Formoterol Fumarate (Symbicort 80-4.5 Mcg Inhaler) 2 puff INHALATION RT-BID [facility] Last Admin: 07/08/20 08:27 Dose: 2 puff Documented by: Bupropion HCl (Bupropion Sr 150 Mg Tablet.Er) 150 mg PO BID [facility] Last Admin: 07/08/20 10:08 Dose: 150 mg Documented by: Cholecalciferol (Cholecalciferol 25 Mcg (1000 Iu) Tablet) 125 mcg PO DAILY [facility] Last Admin: 07/08/20 10:08 Dose: 125 mcg Documented by: Dexamethasone Sodium Phosphate (Dexamethasone Sod Phosphate 10 Mg/Ml 1 Ml Vial) 6 mg IV DAILY [facility] Last Admin: 07/08/20 10:08 Dose: 6 mg Documented by: Ezetimibe (Ezetimibe 10 Mg Tab) 10 mg PO DAILY [facility] Last Admin: 07/08/20 10:08 Dose: 10 mg Documented by: Enoxaparin Sodium (Enoxaparin 40 Mg/0.4 Ml Syringe) 40 mg SQ DAILY [facility] Last Admin: 07/08/20 10:07 Dose: 40 mg Documented by: Gabapentin (Gabapentin 100 Mg Cap) 100 mg PO TID [facility] Last Admin: 07/08/20 17:47 Dose: 100 mg Documented by: HCTZ/Losartan Potassium (Losartan-Hctz 50-12.5 Mg 1 Each Tab) 1 each PO DAILY [facility] Last Admin: 07/08/20 10:07 Dose: 1 each Documented by: Sodium Chloride (Saline 0.9%) 1,000 mls @ 50 mls/hr IV .Q20H [facility] Last Admin: 07/08/20 06:03 Dose: 50 mls/hr Documented by: Remdesivir 100 mg/ Sodium (Chloride) 250 mls @ 250 mls/hr IVPB DAILY@1400 [facility] Stop: 07/09/20 14:59 Last Admin: 07/08/20 10:07 Dose: 250 mls/hr Documented by: Insulin Aspart (Insulin Aspart (Novolog) 100 Unit/Ml Vial) 0 unit SQ ACHS [facility]; Protocol Last Admin: 07/08/20 17:47 Dose: 6 unit Documented by: Insulin Aspart (Insulin Aspart (Novolog) 100 Unit/Ml Vial) 5 unit SQ AC-TID [facility] Last Admin: 07/08/20 17:47 Dose: 5 unit Documented by: Levothyroxine Sodium (Levothyroxine 100 Mcg Tab) 200 mcg PO DAILY@0630 [facility] Last Admin: 07/08/20 06:54 Dose: 200 mcg Documented by: Linagliptin (Linagliptin 5 Mg Tablet) 5 mg PO DAILY@2100 [facility] Last Admin: 07/07/20 21:22 Dose: 5 mg Documented by: Memantine (Memantine 10 Mg Tab) 10 mg PO BID [facility] Last Admin: 07/08/20 10:08 Dose: 10 mg Documented by: Metformin HCl (Metformin 500 Mg Tab) 500 mg PO BID [facility] Last Admin: 07/08/20 10:07 Dose: 500 mg Documented by: Naloxone HCl (Naloxone 0.4 Mg/Ml 1 Ml Vial) 0.2 mg IV Q2M PRN PRN Reason: Opioid Reversal Oxybutynin Chloride (Oxybutynin Xl 5 Mg Tab.Er.24) 5 mg PO DAILY [facility] Last Admin: 07/08/20 10:08 Dose: 5 mg Documented by: Pantoprazole Sodium (Pantoprazole 40 Mg Tablet) 40 mg PO AC-BRKFST [facility] Last Admin: 07/08/20 06:54 Dose: 40 mg Documented by: Zinc Sulfate (Zinc Sulfate 220 Mg Cap) 220 mg PO DAILY [facility] Last Admin: 07/08/20 10:08 Dose: 220 mg Documented by: Objective - Vital Signs Vital signs: Vital Signs Temp 98.2 F 07/08/20 08:20 Pulse 80 07/08/20 08:20 Resp 18 07/08/20 08:20 BP 111/57 07/08/20 08:20 Pulse Ox 87 L 07/08/20 08:20 Intake & Output 07/07/20 07/08/20 07/08/20 18:59 06:59 18:59 Intake Total 2110 20 Balance 2110 20 Intake: IV 670 20 Invasive Line 2 20 20 Remdesivir 100 mg In 250 Sodium Chloride 0.9% 250 ml @ 250 mls/hr IVPB DAILY@1400 [facility] Rx#: [id number] Sodium Chloride 0.9% 1, 400 000 ml @ 50 mls/hr IV . Q20H [facility] Rx#:[id number] Oral 1440 Other: Voiding Method Toilet Toilet # Voids 1 - Exam GENERAL: The patient is alert and oriented x3, not in any acute distress. Well developed, well nourished. HEENT: Pupils are round and equally reacting to light. EOMI. No scleral icterus. No conjunctival pallor. CARDIOVASCULAR: S1 and S2 present. No murmurs, rubs, or gallops. PULMONARY: Mild crackles at the lower lung bases. No wheeze ABDOMEN: Soft, nontender, nondistended, normoactive bowel sounds. MUSCULOSKELETAL: No joint swelling or deformity. EXTREMITIES: No cyanosis, clubbing, or pedal edema. NEUROLOGICAL: Gross neurological examination did not reveal any focal deficits. SKIN: No rashes. no petechiae. - Labs CBC & Chem 7: 07/08/20 07:58 07/08/20 07:58 Labs: Abnormal Lab Results - Last 24 Hours (Table) 07/07/20 07/07/20 07/07/20 Range/Units 10:05 16:56 20:08 Lymphocytes # (1.0-4.8) k/uL D-Dimer (<0.60) mg/L FEU Chloride (98-107) mmol/L BUN (7-17) mg/dL Creatinine (0.52-1.04) mg/dL POC Glucose (mg/dL) 179 H 265 H (75-99) mg/dL Lactate Dehydrogenase (313-618) U/L C-Reactive Protein (<1.0) mg/dL Procalcitonin 0.14 H (0.02-0.09) ng/mL 07/08/20 07/08/20 07/08/20 Range/Units 07:58 07:58 07:58 Lymphocytes # 0.8 L (1.0-4.8) k/uL D-Dimer 2.98 H (<0.60) mg/L FEU Chloride 109 H (98-107) mmol/L BUN 34 H (7-17) mg/dL Creatinine 1.09 H (0.52-1.04) mg/dL POC Glucose (mg/dL) (75-99) mg/dL Lactate Dehydrogenase 789 H (313-618) U/L C-Reactive Protein 3.1 H (<1.0) mg/dL Procalcitonin (0.02-0.09) ng/mL 07/08/20 Range/Units 11:34 Lymphocytes # (1.0-4.8) k/uL D-Dimer (<0.60) mg/L FEU Chloride (98-107) mmol/L BUN (7-17) mg/dL Creatinine (0.52-1.04) mg/dL POC Glucose (mg/dL) 121 H (75-99) mg/dL Lactate Dehydrogenase (313-618) U/L C-Reactive Protein (<1.0) mg/dL Procalcitonin (0.02-0.09) ng/mL Microbiology - Last 24 Hours (Table) 07/04/20 14:27 Blood Culture - Preliminary Blood No Growth after 72 hours 07/04/20 14:33 Blood Culture - Preliminary Blood No Growth after 72 hours Assessment and Plan Assessment: ASSESSMENT Acute hypoxic respiratory failure- COVID-19 pneumonia Bilateral COVID-19 pneumonia Elevated inflammatory markers-trending down PAUL versus CK D Hypertension Hyperlipidemia Type 2 diabetes mellitus Hypothyroidism History of anxiety with depression PLAN; patient to be continued on Remdesivir , continue with vitamin C, D and syncope. Also on Lovenox and dexamethasone. We'll continue to follow inflammatory markers. Continue with GI prophylaxis. Further recommendations to follow depending on the progress of the patient
--- NOTE | 2020-07-08 18:46 | PN ---
PROGRESS NOTE DATE OF SERVICE: 07/08/2020. REASON FOR FOLLOWUP: COVID-19 pneumonia. INTERVAL HISTORY: Patient is currently afebrile. Patient is breathing comfortably. Patient denies having any chest pain. No shortness of breath. Occasional cough. No abdominal pain, no diarrhea. PHYSICAL EXAMINATION: Blood pressure 111/57, pulse of 80, temperature 98.8. General description is an elderly female up in the chair in no distress. Respiratory system: Unlabored breathing, decreased intensity of breath sounds. No wheeze. Heart: S1, S2. Regular rate and rhythm. Abdomen soft, no tenderness. LABS: Hemoglobin 11.1, white count of 5.6, D-dimer 2.98, LDH is 789, down and CRP is down to 3.9. DIAGNOSTIC IMPRESSION AND PLAN: Patient with acute COVID-19 pneumonia, currently being treated with Remdesivir, dexamethasone, zinc and ascorbic acid, to continue and monitor clinical course closely. MMODL / IJN: [id number] /
[2020-07-08 20:16] LABS: Glucose,Whole Blood 187 mg/dL (75-99)
[2020-07-08] MEDS: LINAGLIPTIN 5 MG TABLET PO SCH (21:12)
[2020-07-09 06:10] LABS: Glucose,Whole Blood 93 mg/dL (75-99)
[2020-07-09] MEDS: INSULIN ASPART (NovoLOG) 100 UNIT/ML VIAL SQ SCH ×7 (06:22→20:50)
[2020-07-09] MEDS: LEVOTHYROXINE 100 MCG TAB PO SCH (06:30)
[2020-07-09] MEDS: PANTOPRAZOLE 40 MG TABLET PO SCH (06:30)
[2020-07-09 08:07] LABS: Basophils # (A) 0.1 k/uL (0-0.2); Basophils % (A) 1 %; Eosinophils # (A) 0.1 k/uL (0-0.7); Eosinophils % (A) 1 %; HCT 35.7 % (34.0-46.0); HGB 12.1 gm/dL (11.4-16.0); Lymphocytes # (A) 0.8 k/uL (1.0-4.8); Lymphocytes % (A) 14 %; MCH 30.2 pg (25.0-35.0); MCHC 33.8 g/dL (31.0-37.0); MCV 89.3 fL (80.0-100.0); Mean Platelet Volume 6.8; Monocytes # (A) 0.6 k/uL (0-1.0); Monocytes % (A) 10 %; Neutrophils # (A) 4.4 k/uL (1.3-7.7); Neutrophils % (A) 73 %; Platelet Count 352 k/uL (150-450); RDW 14.1 % (11.5-15.5)
[2020-07-09] MEDS: SYMBICORT 80-4.5 MCG INHALER INHALATION SCH ×2 (08:10→19:49)
[2020-07-09 09:10] LABS: Albumin 2.6 g/dL (3.5-5.0); C Reactive Protein 2.6 mg/dL (<1.0); Calcium 9.3 mg/dL (8.4-10.2); Potassium 4.7 mmol/L (3.5-5.1); Total Bilirubin 0.4 mg/dL (0.2-1.3); Total Protein 5.2 g/dL (6.3-8.2)
[2020-07-09] MEDS: ENOXAPARIN 40 MG/0.4 ML SYRINGE SQ SCH (10:48)
[2020-07-09] MEDS: ASPIRIN 81 MG PO SCH (10:48)
[2020-07-09] MEDS: metFORMIN 500 MG TAB PO SCH ×2 (10:49→20:50)
[2020-07-09] MEDS: ZINC SULFATE 220 MG CAP PO SCH (10:49)
[2020-07-09] MEDS: ATORVASTATIN 20 MG TAB PO SCH (10:49)
[2020-07-09] MEDS: CHOLECALCIFEROL 25 MCG (1000 IU) TABLET PO SCH (10:49)
[2020-07-09] MEDS: MEMANTINE 10 MG TAB PO SCH ×2 (10:49→20:50)
[2020-07-09] MEDS: ASCORBIC ACID 500 MG TAB PO SCH ×2 (10:49→20:50)
[2020-07-09] MEDS: OXYBUTYNIN XL 5 MG TAB.ER.24 PO SCH (10:49)
[2020-07-09] MEDS: GABAPENTIN 100 MG CAP PO SCH ×3 (10:49→20:50)
[2020-07-09] MEDS: DEXAMETHASONE SOD PHOSPHATE 10 MG/ML 1 ML VIAL IV SCH (10:49)
[2020-07-09] MEDS: LOSARTAN-HCTZ 50-12.5 MG 1 EACH TAB PO SCH (10:51)
[2020-07-09] MEDS: buPROPion SR 150 MG TABLET.ER PO SCH ×2 (10:51→20:50)
[2020-07-09] MEDS: EZETIMIBE 10 MG TAB PO SCH (10:51)
[2020-07-09 11:38] LABS: Glucose,Whole Blood 104 mg/dL (75-99)
[2020-07-09 13:28] LABS: Ferritin 209.6 ng/mL (10.0-291.0)
[2020-07-09] MEDS: REMDESIVIR 100 MG in SODIUM CHLORIDE 0.9% 250 ML IVPB SCH (14:45)
--- NOTE | 2020-07-09 15:43 | PN ---
PROGRESS NOTE DATE OF SERVICE: 07/09/2020 REASON FOR FOLLOWUP: COVID-19 pneumonia. INTERVAL HISTORY: The patient is currently afebrile. The patient is breathing comfortably. She is currently down to 2 L cannula. Denies having chest pain. No worsening cough. No abdominal pain, no diarrhea. PHYSICAL EXAMINATION: Blood pressure 95/51, pulse of 75, temperature 98.2. She is 92% on 2 L. General description is an elderly female up in the bed in no distress. Respiratory system: Unlabored breathing, decreased breath sounds, no wheeze. Heart S1, S2. Regular. LABS: Hemoglobin 8.1, white count 6.0, BUN of 20, creatinine 1.1. DIAGNOSTIC IMPRESSION AND PLAN: Patient with acute COVID-19 pneumonia ( ) improvement. She is currently on Remdesivir, dexamethasone, zinc and ascorbic acid along with respiratory support. Will monitor clinical course closely. MMODL / IJN: [id number] /
--- NOTE | 2020-07-09 15:56 | P.PN ---
Subjective Progress Note Date: 07/09/20 Principal diagnosis: Acute hypoxic respiratory failure secondary to acute COVID-19 pneumonia. his is a 70-year-old female with 1 week history of multiple constitutional symptoms including cough, congestion, shortness of breath, weakness, aches and pains, elevated in the ER, patient had a positive PCR for muniz virus. And she had CT of the chest consistent with acute COVID-19 pneumonitis. Patient required 2 L of oxygen and her O2 sats is 94% on 2 L. CBC showed a relative leukopenia. Normal platelets, normal electrolytes. Renal profile is abnormal with BUN of 40 creatinine of 1.33, blood sugar was 305 no inflammatory markers were ordered. Patient was admitted, and this consult was initiated. After evaluating the patient, I did recommend that we start the patient on REM since her symptoms are only 1-week-old. And the patient is requiring minimal amount of oxygen. She is already on Decadron. Already on Lovenox, and she is already on vitamins as well as zinc. I discontinued her oral antibiotics and IV antibiotics as I felt there is no need for them to be on board. Clearly the presentation is a presentation of acute COVID-19 pneumonitis. Based on her ch est x-ray and CT chest findings as well as the clinical history and the fact that she has a positive PCR. Reevaluated today on 07/06/2020, patient seems to be doing better. Remains on 4 L nasal cannula, O2 saturations 93%. Patient is afebrile, she is hemodynamically stable. Not in any distress. I saw this patient yesterday, and I recommended that we start the patient on the COVID-19 cocktail, I also recommended REM. CBC showed mild leukopenia. Normal platelets. Low lymphocytes. Elevated d-dimer of 5.26. Renal profile is a bit worse with creatinine of 1.33. Sugar is 199. LDH is down to 981. C-reactive protein is down to 13.2. Clinically the patient is improving. Patient was reevaluated today on 07/07/2020, patient is breathing easier today, feeling better, she has mostly dyspnea on exertion and minimal cough, no chest pain. She is now on 4 L nasal cannula, and her O2 saturations in the 90s. Her inflammatory markers are significantly improved with LDH down to 877 C-reactive protein down to 3.4. D-dimer is 2.2. Creatinine is 1.3. Patient remains on Decadron, vitamin C, D, zinc, and she is on REM. She is also being hydrated. Sugars are under control Reevaluated today on 07/08/2020, patient is doing better, breathing easier, she is on 2 L nasal cannula, O2 saturation is ranging between 87 up to 91. She continues to have slight dyspnea on exertion. Patient is finishing REM, and I believe tomorrow will be her fifth dose. Hence would consider discharging the patient home once she is done with her REM dosing. May however need to be on oxygen at home. Her LDH today is 789 and C-reactive protein is 3.1. D-dimer is 2.98 Reevaluated today on 07/09/2020, patient is doing great, asymptomatic, on 2 L nasal cannula, O2 saturation is 93%. No cough no wheezing no fever no chills no hemoptysis. Hence I will clear the patient to go home today. Apparently she w as told by her admitting physician that he would clear to go home tomorrow but I have no problem having the patient go home today. Objective - Vital Signs Vital signs: Vital Signs Temp 96.9 F L 07/09/20 15:19 Pulse 86 07/09/20 15:19 Resp 16 07/09/20 15:19 BP 112/64 07/09/20 15:19 Pulse Ox 93 L 07/09/20 15:19 Intake & Output 07/08/20 07/09/20 07/09/20 18:59 06:59 18:59 Intake Total 280 40 820 Balance 280 40 820 Weight 106 kg Intake: IV 40 40 40 Invasive Line 2 40 40 40 Oral 240 780 Other: Voiding Method Toilet Toilet # Voids 1 1 1 - Exam Physical Exam revealed 70-year-old female in no distress. On 2 L nasal cannula. Doing great. Head: Atraumatic, normocephalic. HEENT:[Neck is supple.] [No neck masses.] [No thyromegaly.] [No JVD.] Chest: [[employer] chest expansion, crackles at the bases, no rhonchi no wheezes. Cardiac Exam: [Normal S1 and S2, no S3 gallop, no murmur.] Abdomen: [Soft, nontender, no megaly, no rebound, no guarding, normal bowel sounds.] Extremities: [No clubbing, no edema, no cyanosis.] Neurological Exam: [No focal neurologic deficit.] Alert and oriented 3. Psychiatric: Normal mood, affect and normal mental status examination. Skin: No rashes. Musko skeletal: No deformities and no limitation in range of motion. - Labs CBC & Chem 7: 07/09/20 07:51 07/09/20 07:51 Labs: Abnormal Lab Results - Last 24 Hours (Table) 07/08/20 07/08/20 07/09/20 Range/Units 16:27 20:14 07:51 Lymphocytes # 0.8 L (1.0-4.8) k/uL Chloride (98-107) mmol/L BUN (7-17) mg/dL POC Glucose (mg/dL) 209 H 187 H (75-99) mg/dL Lactate Dehydrogenase (313-618) U/L C-Reactive Protein (<1.0) mg/dL Total Protein (6.3-8.2) g/dL Albumin (3.5-5.0) g/dL 07/09/20 07/09/20 Range/Units 07:51 11:36 Lymphocytes # (1.0-4.8) k/uL Chloride 108 H (98-107) mmol/L BUN 28 H (7-17) mg/dL POC Glucose (mg/dL) 104 H (75-99) mg/dL Lactate Dehydrogenase 668 H (313-618) U/L C-Reactive Protein 2.6 H (<1.0) mg/dL Total Protein 5.2 L (6.3-8.2) g/dL Albumin 2.6 L (3.5-5.0) g/dL Microbiology - Last 24 Hours (Table) 07/04/20 14:27 Blood Culture - Preliminary Blood No Growth after 96 hours 07/04/20 14:33 Blood Culture - Preliminary Blood No Growth after 96 hours Assessment and Plan Assessment: Impression: Acute hypoxic respiratory failure secondary to acute COVID-19 pneumonia History of type 2 diabetes. Dyslipidemia. Benign essential hypertension. Recommendation: Clear to be discharged home today Continue the COVID-19 cocktail. Most likely will need home oxygen at 2 L/m. Continue Decadron. Continue droplet isolation. Cleared by pulmonary for discharge home today. Time with Patient: Less than 30
[2020-07-09 16:49] LABS: Glucose,Whole Blood 252 mg/dL (75-99)
[2020-07-09] MEDS: SODIUM CHLORIDE 0.9% 1,000 ML IV SCH (17:00)
[2020-07-09 20:38] LABS: Glucose,Whole Blood 148 mg/dL (75-99)
[2020-07-09] MEDS: LINAGLIPTIN 5 MG TABLET PO SCH (20:50)
--- NOTE | 2020-07-09 23:52 | P.PN ---
Subjective Progress Note Date: 07/09/20 Principal diagnosis: Bilateral covid pneumonia Ms. Tran is a 70-year-old female with a past medical history of diabetes mellitus, hypertension, hyperlipidemia, thyroid disorder coming to the hospital with a chief complaint of difficulty in breathing. Patient had a CAT scan of the chest showing bilateral COVID-19 pneumonia with elevated inflammatory markers. On 07/08/2020- patient was seen and examined at the bedside. She states her breathing is pretty much the same compared to yesterday. She complains of ongoing cough. Denies having any fevers chills or rigors. No chest pain or palpitations. No abdominal pain nausea vomiting or diarrhea. She denies having any swelling of her lower extremities. On reviewing her vitals temperature of 98.2, heart rate 80, respiratory rate 18, blood pressure 1 11 x 57, saturating at low 90s on 2 L of oxygen. On reviewing her labs white count of 5.6, hemoglobin 9.8, platelets 354. D-dimer 2.98. Sodium 149, pressure by 0.1, chloride 109, bicarb 34, creatinine 1.09. CRP 3.1, LDH 718 9. On 07/09/2020 -patient was seen and examined at the bedside. She is comfortably lying in bed appears to be in no acute distress. She states that her breathing is improving. She has mild cough. She denies having any fevers chills or rigors. No chest pain or palpitations. No abdominal pain nausea vomiting or diarrhea. No dysuria or hematuria. On reviewing the vitals temperature 98.2, heart rate 75, respiratory 16, blood pressure 95 x 51 saturating at 92% on 2 L of oxygen labs from this morning showing white count of 6 hemoglobin 12.1 platelets 352. Sodium 142 potassium 4.7 chloride 108 bicarb 29 BUN 28 creatin ine 1.01 albumin 2.6. Patient's medications have been reviewed. Objective - Vital Signs Vital signs: Vital Signs Temp 96.9 F L 07/09/20 15:19 Pulse 86 07/09/20 15:19 Resp 16 07/09/20 15:19 BP 112/64 07/09/20 15:19 Pulse Ox 93 L 07/09/20 15:19 Intake & Output 07/08/20 07/09/20 07/09/20 18:59 06:59 18:59 Intake Total 280 40 820 Balance 280 40 820 Weight 106 kg Intake: IV 40 40 40 Invasive Line 2 40 40 40 Oral 240 780 Other: Voiding Method Toilet Toilet # Voids 1 1 1 - Exam GENERAL: The patient is alert and oriented x3, not in any acute distress. HEENT: Pupils are round and equally reacting to light. EOMI. No scleral icterus. No conjunctival pallor. CARDIOVASCULAR: S1 and S2 present. No murmurs, rubs, or gallops. PULMONARY: Mild crackles at the lower lung bases. No wheeze ABDOMEN: Soft, nontender, nondistended, normoactive bowel sounds. MUSCULOSKELETAL: No joint swelling or deformity. EXTREMITIES: No cyanosis, clubbing, or pedal edema. NEUROLOGICAL: Gross neurological examination did not reveal any focal deficits. SKIN: No rashes. no petechiae. - Labs CBC & Chem 7: 07/09/20 07:51 07/09/20 07:51 Labs: Abnormal Lab Results - Last 24 Hours (Table) 07/08/20 07/08/20 07/09/20 Range/Units 16:27 20:14 07:51 Lymphocytes # 0.8 L (1.0-4.8) k/uL Chloride (98-107) mmol/L BUN (7-17) mg/dL POC Glucose (mg/dL) 209 H 187 H (75-99) mg/dL Lactate Dehydrogenase (313-618) U/L C-Reactive Protein (<1.0) mg/dL Total Protein (6.3-8.2) g/dL Albumin (3.5-5.0) g/dL 07/09/20 07/09/20 Range/Units 07:51 11:36 Lymphocytes # (1.0-4.8) k/uL Chloride 108 H (98-107) mmol/L BUN 28 H (7-17) mg/dL POC Glucose (mg/dL) 104 H (75-99) mg/dL Lactate Dehydrogenase 668 H (313-618) U/L C-Reactive Protein 2.6 H (<1.0) mg/dL Total Protein 5.2 L (6.3-8.2) g/dL Albumin 2.6 L (3.5-5.0) g/dL Microbiology - Last 24 Hours (Table) 07/04/20 14:27 Blood Culture - Preliminary Blood No Growth after 96 hours 07/04/20 14:33 Blood Culture - Preliminary Blood No Growth after 96 hours Assessment and Plan Assessment: ASSESSMENT Acute hypoxic respiratory failure- COVID-19 pneumonia Bilateral COVID-19 pneumonia Elevated inflammatory markers-trending down PAUL versus CK D Hypertension Hyperlipidemia Type 2 diabetes mellitus Hypothyroidism History of anxiety with depression PLAN; Completed Remdesivir today, continue with vitamin C, D and syncope. Also on Lovenox and dexamethasone. We'll continue to follow inflammatory markers. Continue with GI prophylaxis. Further recommendations to follow depending on the progress of the patient. She might need Oxygen at the time of discharge.
[2020-07-10] MEDS: INSULIN ASPART (NovoLOG) 100 UNIT/ML VIAL SQ SCH ×6 (06:49→21:56)
[2020-07-10] MEDS: PANTOPRAZOLE 40 MG TABLET PO SCH (06:51)
[2020-07-10] MEDS: LEVOTHYROXINE 100 MCG TAB PO SCH (06:51)
[2020-07-10 06:56] LABS: Glucose,Whole Blood 90 mg/dL (75-99)
[2020-07-10] MEDS: SYMBICORT 80-4.5 MCG INHALER INHALATION SCH ×2 (08:25→19:21)
[2020-07-10] MEDS: ASPIRIN 81 MG PO SCH (09:16)
[2020-07-10] MEDS: ENOXAPARIN 40 MG/0.4 ML SYRINGE SQ SCH (09:16)
[2020-07-10] MEDS: metFORMIN 500 MG TAB PO SCH ×2 (09:16→21:55)
[2020-07-10] MEDS: MEMANTINE 10 MG TAB PO SCH ×2 (09:16→21:55)
[2020-07-10] MEDS: GABAPENTIN 100 MG CAP PO SCH ×3 (09:16→21:55)
[2020-07-10] MEDS: buPROPion SR 150 MG TABLET.ER PO SCH ×2 (09:16→22:33)
[2020-07-10] MEDS: LOSARTAN-HCTZ 50-12.5 MG 1 EACH TAB PO SCH (09:16)
[2020-07-10] MEDS: ZINC SULFATE 220 MG CAP PO SCH (09:16)
[2020-07-10] MEDS: EZETIMIBE 10 MG TAB PO SCH (09:16)
[2020-07-10] MEDS: OXYBUTYNIN XL 5 MG TAB.ER.24 PO SCH (09:16)
[2020-07-10] MEDS: ASCORBIC ACID 500 MG TAB PO SCH ×2 (09:16→21:55)
[2020-07-10] MEDS: DEXAMETHASONE SOD PHOSPHATE 10 MG/ML 1 ML VIAL IV SCH (09:17)
[2020-07-10] MEDS: ATORVASTATIN 20 MG TAB PO SCH (09:17)
[2020-07-10] MEDS: CHOLECALCIFEROL 25 MCG (1000 IU) TABLET PO SCH (09:17)
[2020-07-10 12:05] LABS: Glucose,Whole Blood 171 mg/dL (75-99)
--- NOTE | 2020-07-10 14:21 | PN ---
PROGRESS NOTE DATE OF SERVICE: 07/10/2020 REASON FOR FOLLOWUP: COVID-19 pneumonia. INTERVAL HISTORY: Patient is currently afebrile. The patient is breathing comfortably. She is down to 2 L nasal cannula. The patient denies having any chest pain or shortness with cough. No worsening abdominal pain. No diarrhea. PHYSICAL EXAMINATION: Blood pressure 99/55, pulse of 76, temp is 97.6. 98% on 2 L nasal cannula. General description is an elderly female up in the chair in no distress. Respiratory system: Unlabored breathing, decreased intensity of breath sounds. No wheeze. HEART: S1, S2. Regular rate and rhythm. ABDOMEN: Soft, no tenderness. LABS: No new labs have been obtained today. DIAGNOSTIC IMPRESSION/PLAN: Patient with acute COVID-19 pneumonia. The patient has shown overall clinical improvement. She has completed her Remdesivir therapy. She is currently on Dexamethasone, Lovenox, zinc and ascorbic acid to continue along with respiratory support and monitor clinical course closely. MMODL / IJN: [id number] /
[2020-07-10] MEDS: SODIUM CHLORIDE 0.9% 1,000 ML IV SCH (17:02)
[2020-07-10 17:16] LABS: Glucose,Whole Blood 242 mg/dL (75-99)
[2020-07-10 21:26] LABS: Glucose,Whole Blood 145 mg/dL (75-99)
[2020-07-10] MEDS: LINAGLIPTIN 5 MG TABLET PO SCH (21:55)
[2020-07-11 05:41] VITALS: RESP 18
[2020-07-11] MEDS: INSULIN ASPART (NovoLOG) 100 UNIT/ML VIAL SQ SCH ×3 (06:53→17:27)
[2020-07-11] MEDS: LEVOTHYROXINE 100 MCG TAB PO SCH (06:55)
[2020-07-11] MEDS: PANTOPRAZOLE 40 MG TABLET PO SCH (06:56)
[2020-07-11 08:18] LABS: Glucose,Whole Blood 102 mg/dL (75-99)
[2020-07-11] MEDS: SYMBICORT 80-4.5 MCG INHALER INHALATION SCH (08:25)
[2020-07-11] MEDS: metFORMIN 500 MG TAB PO SCH (08:40)
[2020-07-11] MEDS: ASPIRIN 81 MG PO SCH (08:40)
[2020-07-11] MEDS: buPROPion SR 150 MG TABLET.ER PO SCH (08:40)
[2020-07-11] MEDS: EZETIMIBE 10 MG TAB PO SCH (08:40)
[2020-07-11] MEDS: CHOLECALCIFEROL 25 MCG (1000 IU) TABLET PO SCH (08:40)
[2020-07-11] MEDS: ENOXAPARIN 40 MG/0.4 ML SYRINGE SQ SCH (08:40)
[2020-07-11] MEDS: ZINC SULFATE 220 MG CAP PO SCH (08:41)
[2020-07-11] MEDS: GABAPENTIN 100 MG CAP PO SCH ×2 (08:41→17:27)
[2020-07-11] MEDS: ATORVASTATIN 20 MG TAB PO SCH (08:41)
[2020-07-11] MEDS: ASCORBIC ACID 500 MG TAB PO SCH (08:41)
[2020-07-11] MEDS: MEMANTINE 10 MG TAB PO SCH (08:41)
[2020-07-11] MEDS: OXYBUTYNIN XL 5 MG TAB.ER.24 PO SCH (08:41)
[2020-07-11] MEDS: LOSARTAN-HCTZ 50-12.5 MG 1 EACH TAB PO SCH (08:47)
[2020-07-11] MEDS ORDERED: dexAMETHasone 2 MG TAB PO SCH (09:00)
[2020-07-11 10:56] VITALS: BMI 41.0
[2020-07-11 12:03] LABS: Glucose,Whole Blood 167 mg/dL (75-99)
--- NOTE | 2020-07-11 13:42 | PN ---
PROGRESS NOTE DATE OF SERVICE: 07/11/2020 REASON FOR FOLLOWUP: COVID-19 pneumonia. INTERVAL HISTORY: The patient is currently afebrile. The patient is breathing comfortably. She is down to 2 L nasal cannula. Denies having any chest pain, worsening shortness of breath or cough. No abdominal pain or diarrhea. PHYSICAL EXAMINATION: Blood pressure 98/58 with a pulse of 63, temperature is 97.6. She is 97% on 2 L nasal cannula. General description is an elderly female up in the bed in no distress. RESPIRATORY SYSTEM: Unlabored breathing, decreased intensity of breath sounds. No wheeze. HEART: S1, S2. Regular rate and rhythm. ABDOMEN: Soft, no tenderness. LABS: No new labs have been obtained today. Blood culture has been negative. DIAGNOSTIC IMPRESSION AND PLAN: Patient with acute COVID-19 infection in this patient who has shown overall clinical improvement. She has completed her Remdesivir, currently on Lovenox, dexamethasone, zinc, ascorbic acid and respiratory support. Monitor clinical course closely. MMODL / IJN: [id number] /
--- NOTE | 2020-07-11 15:28 | PN ---
PROGRESS NOTE DATE OF SERVICE: 07/10/2020 This is a 70-year-old white female with COVID pneumonia, acute hypoxemic respiratory distress. She is weaned down to 2 L of oxygen. Her breathing is much improved. CARDIOVASCULAR: S1, S2. LUNGS: Clear. GI: Soft. She is ambulating to the bathroom with minimal dizziness. She wears 2 L of oxygen. She will have to be weaned off as an outpatient. Possible discharge home tomorrow. MMODL / IJN: [id number] /
[2020-07-11 16:58] LABS: Glucose,Whole Blood 271 mg/dL (75-99)
[2020-07-11 17:13] VITALS: BP 103/52; PULSE 72; TEMP 98.6
--- NOTE | 2020-07-11 18:25 | PN ---
PROGRESS NOTE This is a 70-year-old white female who was admitted to the hospital with aspiration pneumonia, status post hip fracture. She has been weaned down to [address] Garcia due to elevated COVID-19 pneumonia. She is down to 2 L nasal cannula. She is breathing better. CARDIOVASCULAR: S1, S2. LUNGS: Clear. GI: Soft. She completed her remdesivir, currently on Lovenox, dexamethasone, zinc and ascorbic acid. She can probably simply go home on oxygen today on 2 L of oxygen. Follow up as an outpatient. MMODL / IJN: [id number] /
--- NOTE | 2020-07-11 23:21 | DS ---
DISCHARGE SUMMARY DISCHARGE MEDICATION: 1. Dexamethasone 6 mg daily for 5 days. 2. Orazinc 220 mg daily for 10 days. 3. Vitamin C 500 b.i.d. for 30 days. 4. Vitamin D3 1000 units daily. 5. Namenda 10 mg b.i.d. 6. Nexium 40 mg daily. 7. Xanax 0.25 b.i.d. 8. Janumet 50/500 b.i.d. 9. Vytorin 10/40 one daily. 10.Wellbutrin SR 150 b.i.d. 11.Hyzaar 50/12.5 one daily. 12.Aspirin 81 mg daily. 13.Ditropan XL 5 mg daily. 14.Neurontin 100 t.i.d. 15.Levothyroxine 200 mcg daily. The patient was stabilized from COVID pneumonia, acute hypoxemic respiratory distress. She received 5 days of remdesivir, dexamethasone, antibiotics. The patient was weaned down on her oxygen down to 2 L. She will have to go home with oxygen 2 L to wean down as an outpatient. Follow up with Dr. Pena as an outpatient. Condition stable. Prognosis guarded. MMODL / IJN: [id number] /
== END 2020-07-11 18:45 | disposition home or self-care (01) | DRG 177 ==
LOC: EC 13:07 → 3SCARD 18:42
PROVIDERS: ADMIT Family Medicine; ATTEND Family Medicine
PROC: XW033E5 Introduction of Remdesivir Anti-infective into Peripheral Vein, Percutaneous Approach, New Technology Group 5 (ICD-10-PCS; principal; 2020-07-04)
DX: U07.1 COVID-19 (principal); J12.82 Pneumonia due to coronavirus disease 2019; J69.0 Pneumonitis due to inhalation of food and vomit; J96.01 Acute respiratory failure with hypoxia; N17.9 Acute kidney failure, unspecified; Z68.41 Body mass index [BMI] 40.0-44.9, adult; N18.9 Chronic kidney disease, unspecified; D72.810 Lymphocytopenia; E03.9 Hypothyroidism, unspecified; E11.22 Type 2 diabetes mellitus with diabetic chronic kidney disease; E66.9 Obesity, unspecified; E78.5 Hyperlipidemia, unspecified; F41.9 Anxiety disorder, unspecified; I12.9 Hypertensive chronic kidney disease with stage 1 through stage 4 chronic kidney disease, or unspecified chronic kidney disease; Z79.4 Long term (current) use of insulin; Z79.51 Long term (current) use of inhaled steroids; Z79.82 Long term (current) use of aspirin; Z79.890 Hormone replacement therapy; Z79.899 Other long term (current) drug therapy; Z82.49 Family history of ischemic heart disease and other diseases of the circulatory system; Z87.891 Personal history of nicotine dependence; Z90.710 Acquired absence of both cervix and uterus; Z90.89 Acquired absence of other organs
CPT/HCPCS: 36415; 71045; 71275; 80048; 80053; 82728; 83605; 83615; 83735; 84145; 85025; 85379; 85610; 85730; 86140; 87040; 87635; 93005; 94640; 99285

== ENCOUNTER 2020-10-22 18:44 | Emergency (ER) | payer MEDICARE, OTHER ==
[2020-10-22 18:49] VITALS: TEMP 98
[2020-10-22] MEDS ORDERED: KETOROLAC 15 MG/ML 1 ML VIAL IVP STA (19:09)
[2020-10-22] MEDS ORDERED: MORPHINE SULFATE 2 MG/ML SYRINGE IVP STA (19:09)
[2020-10-22] MEDS ORDERED: ONDANSETRON 4 MG/2 ML VIAL IVP STA ×2 (19:09→21:05)
--- NOTE | 2020-10-22 19:19 | ED ---
General Adult HPI - General Chief complaint: Extremity Injury, Lower Stated complaint: rt hip pain Time Seen by Provider: 10/22/20 18:59 Source: patient Mode of arrival: wheelchair Limitations: no limitations - History of Present Illness Initial comments: 70 year-old female patient presents to the emergency department for evaluation of right hip pain, radiating into the back, and into the right lower quadrant abdomen. Patient states the pain started on Friday and has been gradually worsening over the last six days. States she has been nauseated with this and did have one episode of vomiting today. Denies any constipation or diarrhea. Denies any hematuria, dysuria, urinary urgency, or frequency. Denies fever or chills. She is unsure if she had chicken pox as a child. Did not have the shingles vaccine. Denies pain radiating down the leg. Denies loss of bowel or bladder control. Denies saddle anesthesia. Patient denies any recent rash, cough, shortness of breath, chest pain, diarrhea, constipation, numbness, tingling, dizziness, weakness, headache, visual changes, or any other complaints. - Related Data Home Medications Medication Instructions Recorded Confirmed ALPRAZolam [Xanax] 0.25 mg PO BID PRN 10/29/16 07/04/20 Esomeprazole Magnesium [NexIUM] 40 mg PO DAILY 10/29/16 07/04/20 Ezetimibe/Simvastatin [Vytorin 1 tab PO DAILY 10/29/16 07/04/20 10-40 mg Tablet] Losartan-Hctz 50-12.5 mg [Hyzaar 1 tab PO DAILY 10/29/16 07/04/20 50-12.5] Memantine [Namenda] 10 mg PO BID 10/29/16 07/04/20 buPROPion HCL [Wellbutrin SR] 150 mg PO BID 10/29/16 07/04/20 sitaGLIPtin PHOS/metFORMIN HCL 1 tab PO BID 10/29/16 07/04/20 [Janumet 50-500 mg Tablet] Aspirin 81 mg PO DAILY 03/12/17 07/04/20 Gabapentin [Neurontin] 100 mg PO TID 07/04/20 07/04/20 Levothyroxine Sodium [Levoxyl] 200 mcg PO DAILY 07/04/20 07/04/20 Oxybutynin Chloride [Ditropan XL] 5 mg PO DAILY 07/04/20 07/04/20 Previous Rx's Medication Instructions Recorded Ascorbic Acid [Vitamin C] 500 mg PO BID 30 Days #30 tab 07/10/20 Cholecalciferol [Vitamin D3 (25 125 mcg PO DAILY 30 Days #30 tablet 07/10/20 Mcg = 1000 Iu)] Zinc Sulfate [Orazinc] 220 mg PO DAILY 10 Days #10 cap 07/10/20 dexAMETHasone ORAL [Hexadrol] 6 mg PO DAILY 5 Days #5 tab 07/10/20 Hydrocodone/Acetaminophen [[place] 1 tab PO Q6HR PRN 3 Days #12 tab 10/22/20 7.5-325] Ibuprofen [Motrin] 600 mg PO Q8HR PRN #30 tab 10/22/20 Lidocaine 5% Patch [Lidoderm] 1 patch TOPICAL DAILY #30 patch 10/22/20 Ondansetron [Zofran ODT] 4 mg PO Q8HR PRN #20 tab 10/22/20 valACYclovir HCL [Valtrex] 1,000 mg PO TID #21 tablet 10/23/20 Allergies Allergy/AdvReac Type Severity Reaction Status Date / Time No Known Allergies Allergy Verified 10/22/20 18:46 Review of Systems ROS Statement: Those systems with pertinent positive or pertinent negative responses have been documented in the HPI. ROS Other: All systems not noted in ROS Statement are negative. Past Medical History Past Medical History: Diabetes Mellitus, Hyperlipidemia, Hypertension, Thyroid Disorder History of Any Multi-Drug Resistant Organisms: None Reported Past Surgical History: Hernia Repair, Hysterectomy, Orthopedic Surgery, Tonsillectomy Additional Past Surgical History / Comment(s): hemorrhoid Past Anesthesia/Blood Transfusion Reactions: No Reported Reaction Past Psychological History: Anxiety, Depression Smoking Status: Former smoker Past Alcohol Use History: None Reported Past Drug Use History: None Reported - Past Family History Mother Additional Family Medical History / Comment(s): Rheumatic heart disease Father Family Medical History: Coronary Artery Disease (CAD) General Exam Limitations: no limitations General appearance: alert, in no apparent distress, other (This is a well- developed, well-nourished adult female patient in no acute distress. Vital signs upon presentation are temperature 98.0F, pulse 80, respirations 16, blood pressure 132/62, pulse ox 100% on room air.) Eye exam: Present: normal appearance, PERRL, EOMI. Absent: scleral icterus, conjunctival injection, periorbital swelling ENT exam: Present: normal exam, normal oropharynx, mucous membranes moist Respiratory exam: Present: normal lung sounds bilaterally. Absent: respiratory distress, wheezes, rales, rhonchi, stridor Cardiovascular Exam: Present: regular rate, normal rhythm, normal heart sounds. Absent: systolic murmur, diastolic murmur, rubs, gallop, clicks GI/Abdominal exam: Present: soft, normal bowel sounds, other (There is a vesicular rash and erythematous bed starting in the right low or quadrant abdomen standing to the right low back. Does not cross the midline.). Absent: distended, tenderness, guarding, rebound, rigid Neurological exam: Present: alert, oriented X3, CN II-XII intact Psychiatric exam: Present: normal affect, normal mood Skin exam: Present: warm, dry, intact, normal color. Absent: rash Course Vital Signs 10/22/20 10/22/20 10/22/20 18:46 19:35 20:35 Temperature 98.0 F Pulse Rate 80 78 80 Respiratory 16 20 24 Rate Blood Pressure 132/62 138/98 132/99 O2 Sat by Pulse 100 96 95 Oximetry 10/22/20 21:44 Temperature Pulse Rate 84 Respiratory 20 Rate Blood Pressure 132/99 O2 Sat by Pulse 95 Oximetry Medical Decision Making - Medical Decision Making 70-year-old female patient presents to the emergency department today for evaluation of right hip pain radiating into her abdomen and back. Physical examination did reveal vesicular rash extending from the right lower quadrant to the right low back. Rash does not cross the midline. Did discuss with patient that this is most likely shingles. Patient was unhappy with that diagnosis and wanted further evaluation. She was also reporting nausea so I did add labs and CT abdomen and pelvis. These results were negative. She is started on valacyclovir. Given ibuprofen, lidoderm, and norco for the pain. She is instructed to follow-up with the primary care physician for recheck in 1-2 days. Return parameters were discussed in detail. She verbalizes understanding and agrees with this plan. Case discussed with my attending Dr. East. - Lab Data Result diagrams: 10/22/20 19:24 10/22/20 19:24 Lab Results 10/22/20 10/22/2010/22/21 Range/Units 19:24 19:24 19:24 WBC 6.0 (3.8-10.6) k/uL RBC 4.54 (3.80-5.40) m/uL Hgb 14.2 (11.4-16.0) gm/dL Hct 43.0 (34.0-46.0) % MCV 94.7 (80.0-100.0) fL MCH 31.3 (25.0-35.0) pg MCHC 33.1 (31.0-37.0) g/dL RDW 14.4 (11.5-15.5) % Plt Count 317 (150-450) k/uL MPV 7.0 Neutrophils % 70 % Lymphocytes % 20 % Monocytes % 5 % Eosinophils % 3 % Basophils % 1 % Neutrophils # 4.2 (1.3-7.7) k/uL Lymphocytes # 1.2 (1.0-4.8) k/uL Monocytes # 0.3 (0-1.0) k/uL Eosinophils # 0.2 (0-0.7) k/uL Basophils # 0.0 (0-0.2) k/uL Sodium 134 L (137-145) mmol/L Potassium 5.9 H (3.5-5.1) mmol/L Chloride 100 (98-107) mmol/L Carbon Dioxide 28 (22-30) mmol/L Anion Gap 6 mmol/L BUN 30 H (7-17) mg/dL Creatinine 0.79 (0.52-1.04) mg/dL Est GFR (CKD-EPI)AfAm 89 (>60 ml/min/1.73 sqM) Est GFR (CKD-EPI)NonAf 77 (>60 ml/min/1.73 sqM) Glucose 141 H (74-99) mg/dL Plasma Lactic Acid David (0.7-2.0) mmol/L Calcium 9.8 (8.4-10.2) mg/dL Total Bilirubin 0.7 (0.2-1.3) mg/dL AST 36 (14-36) U/L ALT 20 (4-34) U/L Alkaline Phosphatase 81 (38-126) U/L Total Protein 7.4 (6.3-8.2) g/dL Albumin 4.5 (3.5-5.0) g/dL Lipase 164 (23-300) U/L Urine Color Yellow Urine Appearance Clear (Clear) Urine pH 6.0 (5.0-8.0) Ur Specific [place] 1.022 (1.001-1.035) Urine Protein Negative (Negative) Urine Glucose (UA) Negative (Negative) Urine Ketones Negative (Negative) Urine Blood Negative (Negative) Urine Nitrite Negative (Negative) Urine Bilirubin Negative (Negative) Urine Urobilinogen <2.0 (<2.0) mg/dL Ur Leukocyte Esterase Negative (Negative) 10/22/20 Range/Units 19:24 WBC (3.8-10.6) k/uL RBC (3.80-5.40) m/uL Hgb (11.4-16.0) gm/dL Hct (34.0-46.0) % MCV (80.0-100.0) fL MCH (25.0-35.0) pg MCHC (31.0-37.0) g/dL RDW (11.5-15.5) % Plt Count (150-450) k/uL MPV Neutrophils % % Lymphocytes % % Monocytes % % Eosinophils % % Basophils % % Neutrophils # (1.3-7.7) k/uL Lymphocytes # (1.0-4.8) k/uL Monocytes # (0-1.0) k/uL Eosinophils # (0-0.7) k/uL Basophils # (0-0.2) k/uL Sodium (137-145) mmol/L Potassium (3.5-5.1) mmol/L Chloride (98-107) mmol/L Carbon Dioxide (22-30) mmol/L Anion Gap mmol/L BUN (7-17) mg/dL Creatinine (0.52-1.04) mg/dL Est GFR (CKD-EPI)AfAm (>60 ml/min/1.73 sqM) Est GFR (CKD-EPI)NonAf (>60 ml/min/1.73 sqM) Glucose (74-99) mg/dL Plasma Lactic Acid David 1.4 (0.7-2.0) mmol/L Calcium (8.4-10.2) mg/dL Total Bilirubin (0.2-1.3) mg/dL AST (14-36) U/L ALT (4-34) U/L Alkaline Phosphatase (38-126) U/L Total Protein (6.3-8.2) g/dL Albumin (3.5-5.0) g/dL Lipase (23-300) U/L Urine Color Urine Appearance (Clear) Urine pH (5.0-8.0) Ur Specific [place] (1.001-1.035) Urine Protein (Negative) Urine Glucose (UA) (Negative) Urine Ketones (Negative) Urine Blood (Negative) Urine Nitrite (Negative) Urine Bilirubin (Negative) Urine Urobilinogen (<2.0) mg/dL Ur Leukocyte Esterase (Negative) - Radiology Data Radiology results: report reviewed, image reviewed CT abdomen and pelvis with contrast was obtained. Report was reviewed in its entirety. Impression by Dr. Oconnell shows no acute abnormality in the abdomen and pelvis. Lumbar moderate spondylotic changes. No fracture seen. Appendix not seen. Disposition Clinical Impression: Shingles, Right hip pain Disposition: HOME SELF-CARE Condition: Good Instructions (If sedation given, give patient instructions): Shingles (ED) Additional Instructions: Take medications as directed. Complete antiviral medication in full. Follow up with your primary care physician for recheck in 1-2 days. Return for any new, worsening, or concerning symptoms. Prescriptions: Lidocaine 5% Patch [Lidoderm] 1 patch TOPICAL DAILY #30 patch Ibuprofen [Motrin] 600 mg PO Q8HR PRN #30 tab PRN Reason: Pain Hydrocodone/Acetaminophen [[place] 7.5-325] 1 tab PO Q6HR PRN 3 Days #12 tab PRN Reason: Pain valACYclovir HCL [Valtrex] 1,000 mg PO TID #21 tablet Ondansetron [Zofran ODT] 4 mg PO Q8HR PRN #20 tab PRN Reason: Nausea Is patient prescribed a controlled substance at d/c from ED?: Yes When asked, does pt state using other controlled substances?: No If prescribed controlled substance>3 days was MAPS reviewed?: Prescribed <3 Days If opioid is for acute pain is fill amount 7 days or less?: Yes If Rx opioid, was Start Talking consent form obtained?: Yes Referrals: Ronni Pena MD [Primary Care Provider] - 1-2 days Time of Disposition: 21:20
[2020-10-22 19:41] LABS: Basophils % (A) 1 %; Eosinophils # (A) 0.2 k/uL (0-0.7); Eosinophils % (A) 3 %; HGB 14.2 gm/dL (11.4-16.0); Lymphocytes # (A) 1.2 k/uL (1.0-4.8); Lymphocytes % (A) 20 %; MCH 31.3 pg (25.0-35.0); MCHC 33.1 g/dL (31.0-37.0); MCV 94.7 fL (80.0-100.0); Monocytes # (A) 0.3 k/uL (0-1.0); Monocytes % (A) 5 %; Neutrophils # (A) 4.2 k/uL (1.3-7.7); Neutrophils % (A) 70 %; Platelet Count 317 k/uL (150-450); RBC 4.54 m/uL (3.80-5.40); RDW 14.4 % (11.5-15.5)
[2020-10-22 19:55] LABS: Albumin 4.5 g/dL (3.5-5.0); Calcium 9.8 mg/dL (8.4-10.2); Total Bilirubin 0.7 mg/dL (0.2-1.3); Total Protein 7.4 g/dL (6.3-8.2)
[2020-10-22 19:58] LABS: Appearance,Urine Clear (Clear); Bilirubin,Urine Negative (Negative); Blood,Urine Negative (Negative); Color,Urine Yellow; Glucose,Urine (UA) Negative (Negative); Ketones,Urine Negative (Negative); Leukocyte Esterase,Urine Negative (Negative); Nitrite,Urine Negative (Negative); Protein,Urine Negative (Negative); Specific Gravity,Urine 1.022 (1.001-1.035); Urobilinogen,Urine <2.0 mg/dL (<2.0)
[2020-10-22 19:59] LABS: Potassium 5.9 mmol/L (3.5-5.1)
--- NOTE | 2020-10-22 20:43 | CT ---
EXAMINATION TYPE: CT abdomen pelvis w con DATE OF EXAM: 10/22/2020 COMPARISON: None HISTORY: Right lower quadrant pain, right hip pain, back pain and nausea. CT DLP: 2248.5 mGycm Automated exposure control for dose reduction was used. CONTRAST: Performed with IV Contrast, patient injected with 100 mL of Isovue 300. There is mild subsegmental atelectasis at the lung bases. Liver spleen stomach pancreas gallbladder a ppear intact. The bile ducts are not dilated. There is no adrenal mass. Kidneys show satisfactory con trast opacification. There is no hydronephrosis. Delayed images show normal renal excretion. There is no retroperitoneal adenopathy. There is broad-based anterior abdominal wall ventral hernia t hat contains fat. Bladder is almost empty. There is no inguinal hernia. Uterus is anteverted. There are spondylotic ashley nges in the lumbar spine. There is no compression fracture. There is multilevel vacuum disc. The bony pelvis appears intact. Hip joints are intact. There is slight lumbar dextroscoliosis. There is no mesenteric edema. There is no ascites or free air. There is no bowel obstruction. I see n o bony destructive process. Appendix is not seen. IMPRESSION: No acute abnormality in the abdomen pelvis. Lumbar moderate spondylotic changes. No fracture seen. Ap pendix not seen.
[2020-10-22 20:46] VITALS: BP 132/99
[2020-10-22] MEDS ORDERED: MORPHINE SULFATE 4 MG/ML SYRINGE IVP STA (21:05)
[2020-10-22] MEDS ORDERED: valACYclovir 500 MG TAB PO ONE (21:15)
[2020-10-22] MEDS ORDERED: ONDANSETRON 4 MG ODT STARTER PACK 2 TAB BTL PO STA (21:18)
[2020-10-22] MEDS ORDERED: LIDOCAINE 5% PATCH TOPICAL STA (21:19)
[2020-10-22 21:44] VITALS: PULSE 84; RESP 20
== END 2020-10-22 20:05 | disposition home or self-care (01) ==
LOC: EC 18:44
DX: M25.551 Pain in right hip (principal); B02.9 Zoster without complications; E11.9 Type 2 diabetes mellitus without complications; E78.5 Hyperlipidemia, unspecified; I10 Essential (primary) hypertension; E07.9 Disorder of thyroid, unspecified; F41.9 Anxiety disorder, unspecified; F32.9 Major depressive disorder, single episode, unspecified; Z90.710 Acquired absence of both cervix and uterus; Z90.89 Acquired absence of other organs; Z87.891 Personal history of nicotine dependence
CPT/HCPCS: 99284; 96374; 96375 ×2; 96376 ×2; 36415; 80053; 83605; 83690; 85025; 81003; 74177; J2270 ×2; J2405; J1885; S0119; Q9967

== ENCOUNTER → 2021-07-19 | Outpatient (CLI) | payer MEDICARE, OTHER ==
--- NOTE | 2021-07-20 08:43 | CT ---
EXAMINATION TYPE: CT lumbar spine wo con DATE OF EXAM: 07/19/2021 COMPARISON: None HISTORY: low back pain CT DLP: 2813.6 mGycm CONTRAST: None TECHNIQUE: CT of the lumbar spine is performed on a spiral scan at 3 mm thick sections. Reconstructed images are performed in the coronal and sagittal planes. FINDINGS: There is diffuse loss of disc height throughout the lumbar spine. Vacuum disc phenomenon is present throughout the lumbar spine especially noted L4-5 and L5-S1. Vertebral body heights appear p reserved. Some scoliosis is present with the convexity to the right. T12-L1: No focal disc herniation or significant disc bulge is evident. No spinal canal stenosis or neural foraminal stenosis is present. L1-L2: No focal disc herniation or significant disc bulge is evident. No spinal canal stenosis or n eural foraminal stenosis is present L2-L3: Some minimal residual disc bulges moderate anterior thecal sac flattening. No AP spinal canal stenosis is present. Some mild to moderate left foraminal narrowing is present. L3-L4: Endplate changes have moderate anterior thecal sac impression. This is complicated by facet hy pertrophy greater on the left. Moderate to severe left foraminal stenosis present. Correlate with rad icular symptoms. L4-L5: Broad-based disc bulge is present with moderate intrathecal sac impression. This may be more f ocal in the left paracentral region extending towards the foramen. Severe left foraminal stenosis rebeka ears to be present due to disc material. MRI could further evaluate this finding. Spinal canal stenos is appears to be present at this level. L5-S1: There may be some mild endplate changes with anterior thecal sac compression. AP spinal canal stenosis is not present. Mild left and severe right foraminal stenosis is present. IMPRESSION: 1. Multilevel degenerative disc changes with vacuum phenomenon through the scoliotic lumbar spine. 2. Spinal canal stenosis secondary to broad-based residual disc bulging and endplate spurring at L4-5 . This is greater to the left paracentral region. 3. Severe left foraminal stenosis L4-5 due to disc material. Severe right foraminal stenosis present L5-S1. Moderate to severe bilateral foraminal narrowing is present L3-4. Some additional areas of mil d or foraminal narrowing are present. 4. Consider MRI for additional evaluation.
== END | disposition home or self-care (01) ==
LOC: RADCTMAIN 17:21
PROVIDERS: ATTEND Family Medicine
DX: M48.061 Spinal stenosis, lumbar region without neurogenic claudication (principal); M51.36 Other intervertebral disc degeneration, lumbar region; M47.816 Spondylosis without myelopathy or radiculopathy, lumbar region; M99.73 Connective tissue and disc stenosis of intervertebral foramina of lumbar region
CPT/HCPCS: 72131

== ENCOUNTER 2021-10-09 12:07 | Observation (INO) | payer MEDICARE, OTHER ==
[2021-10-09 12:47] LABS: Basophils % (A) 0 %; Eosinophils # (A) 0.2 k/uL (0-0.7); Eosinophils % (A) 3 %; HCT 44.5 % (34.0-46.0); HGB 13.9 gm/dL (11.4-16.0); Lymphocytes # (A) 1.3 k/uL (1.0-4.8); Lymphocytes % (A) 21 %; MCH 30.2 pg (25.0-35.0); MCHC 31.2 g/dL (31.0-37.0); MCV 96.6 fL (80.0-100.0); Mean Platelet Volume 7.5; Monocytes # (A) 0.3 k/uL (0-1.0); Monocytes % (A) 4 %; Neutrophils # (A) 4.3 k/uL (1.3-7.7); Neutrophils % (A) 70 %; Platelet Count 261 k/uL (150-450); RDW 13.6 % (11.5-15.5); WBC 6.2 k/uL (3.8-10.6)
[2021-10-09] MEDS ORDERED: MAG HYDROX/AL HYDROX/SIMETH 30 ML, HYOSCYAMINE ELIXIR 10 ML, LIDOCAINE VISCOUS 2% 10 ML PO STA ×3 (13:00)
[2021-10-09] MEDS ORDERED: PANTOPRAZOLE 40 MG/10 ML VIAL IVP STA (13:00)
--- NOTE | 2021-10-09 13:05 | XR ---
EXAMINATION TYPE: XR chest 2V DATE OF EXAM: 10/09/2021 12:59 PM COMPARISON: Chest radiographs from 07/04/2020. TECHNIQUE: XR chest 2V Frontal and lateral views of the chest. CLINICAL INDICATION:Female, 71 years old with history of chest pain; FINDINGS: Lungs/Pleura: There is no evidence of pleural effusion, focal consolidation, or pneumothorax. Resolu tion of previous is demonstrated multifocal airspace disease. Pulmonary vascularity: Unremarkable. Heart/mediastinum: Cardiomediastinal silhouette is unremarkable. Musculoskeletal: Multiple level degenerative disc disease changes seen throughout the spine. No acute osseous abnormality. IMPRESSION: No acute cardiopulmonary disease/process.
[2021-10-09 13:07] LABS: Partial Thromboplastin Time 23.8 sec (22.0-30.0); Prothrombin Time 10.6 sec (9.0-12.0)
[2021-10-09 13:13] LABS: Albumin 4.3 g/dL (3.5-5.0); Calcium 9.2 mg/dL (8.4-10.2); Potassium 5.3 mmol/L (3.5-5.1); Total Bilirubin 0.5 mg/dL (0.2-1.3)
--- NOTE | 2021-10-09 13:15 | ED ---
Chest Pain HPI - General Chief Complaint: Chest Pain Stated Complaint: Chest pressure Time Seen by Provider: 10/09/21 12:30 Source: patient Mode of arrival: wheelchair - History of Present Illness Initial Comments: 71-year-old female past history of diabetes, hypertension, hyperlipidemia presents to the emergency department with chest pain. States that it's been present on and off for the past 2 days. Started after she ate supper. Described it as a burning sensation in the central portion of her chest which radiates up to her neck. She does have a history of peptic ulcer disease. She denies any vomiting. No black or bloody stools. Denies any alcohol or NSAID intake. No history of cardiac disease. Does wear oxygen at night since she was diagnosed with Covid. Denies any worsening shortness of breath. Patient was monitoring her heart rate at home and found that it was fluctuating from high to low. She did not take anything at home for her symptoms before coming in. She was recently placed on diuretics for some lower extremity edema by her primary care physician. Patient did not recognize the swelling but her primary care did. No other alleviating, precipitating or modifying factors - Related Data Home Medications Medication Instructions Recorded Confirmed ALPRAZolam [Xanax] 0.25 mg PO BID PRN 10/29/16 10/09/21 Esomeprazole Magnesium [NexIUM] 40 mg PO DAILY 10/29/16 10/09/21 Ezetimibe/Simvastatin [Vytorin 1 tab PO DAILY 10/29/16 10/09/21 10-40 mg Tablet] Losartan-Hctz 50-12.5 mg [Hyzaar 1 tab PO DAILY 10/29/16 10/09/21 50-12.5] Memantine [Namenda] 10 mg PO BID 10/29/16 10/09/21 buPROPion HCL [Wellbutrin SR] 150 mg PO BID 10/29/16 10/09/21 sitaGLIPtin PHOS/metFORMIN HCL 1 tab PO BID 10/29/16 10/09/21 [Janumet 50-500 mg Tablet] Aspirin 81 mg PO DAILY 03/12/17 10/09/21 Gabapentin [Neurontin] 300 mg PO TID 10/09/21 10/09/21 Hydrocodone/Acetaminophen [[place] 1 tab PO TID PRN 07/26/22 07/26/22 7.5-325] L.acidoph,Paracasei, B.lactis 1 cap PO DAILY 10/09/21 10/09/21 [Probiotic] Levothyroxine Sodium [Synthroid] 150 mcg PO DAILY 10/09/21 10/09/21 Multivit-Min/FA/Lycopen/Lutein 1 tab PO DAILY 10/09/21 10/09/21 [Centrum Silver Tablet] Allergies Allergy/AdvReac Type Severity Reaction Status Date / Time No Known Allergies Allergy Verified 10/09/21 13:50 Review of Systems ROS Statement: Those systems with pertinent positive or pertinent negative responses have been documented in the HPI. ROS Other: All systems not noted in ROS Statement are negative. EKG Findings - EKG Comments: EKG Findings:: EKG demonstrates sinus rhythm with a rate of 80. MT interval 154. QRS 93. QTC of 406. No acute ST segment elevations or depressions. PVC present Past Medical History Past Medical History: Diabetes Mellitus, Hyperlipidemia, Hypertension, Thyroid Disorder History of Any Multi-Drug Resistant Organisms: None Reported Past Surgical History: Hernia Repair, Hysterectomy, Orthopedic Surgery, Tonsillectomy Additional Past Surgical History / Comment(s): hemorrhoid Past Anesthesia/Blood Transfusion Reactions: No Reported Reaction Past Psychological History: Anxiety, Depression Smoking Status: Former smoker Past Alcohol Use History: None Reported Past Drug Use History: None Reported - Past Family History Mother Additional Family Medical History / Comment(s): Rheumatic heart disease Father Family Medical History: Coronary Artery Disease (CAD) General Exam General appearance: alert, in no apparent distress Head exam: Present: atraumatic, normocephalic, normal inspection Eye exam: Present: normal appearance, PERRL, EOMI. Absent: scleral icterus, conjunctival injection, periorbital swelling ENT exam: Present: normal exam, mucous membranes moist Neck exam: Present: normal inspection. Absent: tenderness, meningismus, lymphadenopathy Respiratory exam: Present: normal lung sounds bilaterally. Absent: respiratory distress, wheezes, rales, rhonchi, stridor Cardiovascular Exam: Present: regular rate, normal rhythm, normal heart sounds. Absent: systolic murmur, diastolic murmur, rubs, gallop, clicks GI/Abdominal exam: Present: soft, normal bowel sounds. Absent: distended, tenderness, guarding, rebound, rigid Extremities exam: Present: normal inspection, full ROM, normal capillary refill. Absent: tenderness, pedal edema, joint swelling, calf tenderness Back exam: Present: normal inspection Neurological exam: Present: alert, oriented X3, CN II-XII intact Psychiatric exam: Present: normal affect, normal mood Skin exam: Present: warm, dry, intact, normal color. Absent: rash Course Vital Signs 10/09/21 10/09/21 10/09/21 12:17 13:48 15:17 Temperature 98.1 F Pulse Rate 83 79 82 Respiratory 18 20 16 Rate Blood Pressure 116/75 136/72 109/62 O2 Sat by Pulse 98 97 95 Oximetry Chest Pain MDM - MDM Upon arrival patient was placed into room 15. Thorough history and physical exam was performed. IV access established and laboratory studies were conducted. Patient does go for chest x-ray. I did give her a GI cocktail. She is reevaluated and has improvement in her symptoms. Pain is a 2 from a 7 after the GI cocktail. Creatinine 1.2. Troponin is negative. Discuss results with the patient and did recommend admission for cardiology consultation and trend her troponins. Patient agreed to this. Dr. Hodges who admitted the patient Disposition Clinical Impression: Acute kidney injury, Chest pain Disposition: ADMITTED IP TO THIS HOSP Condition: Stable Is patient prescribed a controlled substance at d/c from ED?: No Time of Disposition: 14:43 Decision to Admit Reason: Admit from EC Decision Date: 10/09/21 Decision Time: 14:43
[2021-10-09 13:29] LABS: Glucose,Whole Blood 197 mg/dL (70-110)
[2021-10-09] MEDS ORDERED: SODIUM CHLORIDE 0.9% 500 ML 500 ML IV ONE (14:02)
[2021-10-09] MEDS ORDERED: NALOXONE 0.4 MG/ML 1 ML VIAL IV PRN (14:43)
[2021-10-09] MEDS ORDERED: ASPIRIN 81 MG PO STA (14:44)
[2021-10-09] MEDS ORDERED: ALPRAZolam 0.25 MG TAB PO PRN (14:45)
[2021-10-09] MEDS ORDERED: HYDROcodone/APAP 7.5-325MG 1 EACH TAB PO PRN (14:45)
[2021-10-09] MEDS: GABAPENTIN 300 MG CAP PO SCH ×2 (16:19→21:12)
[2021-10-09 20:22] LABS: Glucose,Whole Blood 165 mg/dL (70-110)
--- NOTE | 2021-10-09 20:27 | HP ---
HISTORY AND PHYSICAL {Dictation begins at marker 92.} Family history: Mother with rheumatoid arthritis. Father with coronary artery disease. Physical examination: Temperature 98.1, pulse 79 to 93, respiratory rate 18 to 20, blood pressure 116 to 136 over 72 to 75, O2 98 to 97. ASSESSMENT: 1. Acute kidney injury. 2. Atypical chest pain. Rehydrate due to dehydration. Chest pain. Will have Cardiology evaluate her. Rule out blood clots with the heart disease. Prognosis guarded. Please see further orders. MMODL / IJN: [id number] /
--- NOTE | 2021-10-09 20:29 | CT ---
EXAMINATION TYPE: CT chest wo con CT DLP: 552.40 mGycm, Automated exposure control for dose reduction was used. DATE OF EXAM: 10/09/2021 8:10 PM COMPARISON: CT chest 07/04/2020 CLINICAL INDICATION:Female, 71 years old with history of chest pain; TECHNIQUE: Multiple axial images were obtained through the chest. Sagittal and coronal reformats were created for review. Contrast used: none. Oral contrast used: none. FINDINGS: LUNGS/ PLEURA: Increased interstitial lung markings likely sequela prior acute infection on 07/04/2020 No evidence focal consolidation, pneumothorax or pleural effusion. AIRWAY: Patent and unremarkable. HEART: Heart is mildly enlarged for size along with mild coronary artery atherosclerosis MEDIASTINUM: No gross evidence of adenopathy. VASCULATURE: No aortic aneurysm. Scattered atherosclerosis of the arterial vasculature. MUSCULOSKELETAL: No acute osseous abnormalities. Scattered multilevel disc degeneration changes are s een throughout the spine. SOFT TISSUES/LYMPH NODES: Unremarkable. LOWER NECK: No significant findings. UPPER ABDOMEN: Diffuse low-attenuation to the liver parenchyma. Nonobstructing left renal calculus me asuring 2 mm. IMPRESSION: 1. No evidence for acute intrathoracic process. 2. Chronic likely scarring from prior infection seen on 07/04/2020. 3. Hepatic steatosis. 4. Nonobstructing left renal calculi.
[2021-10-09] MEDS ORDERED: LINAGLIPTIN 5 MG TABLET PO SCH (21:00)
[2021-10-09] MEDS ORDERED: NON FORMULARY DRUG (Sitagliptin Phos/Metformin Hcl [Janumet 50-500 Mg Tablet] 1 EACH Table PO SCH (21:00)
[2021-10-09] MEDS: buPROPion SR 150 MG TABLET.ER PO SCH (21:11)
[2021-10-09] MEDS: SODIUM CHLORIDE 0.9% 1,000 ML IV SCH (21:11)
[2021-10-09] MEDS: metFORMIN 500 MG TAB PO SCH (21:12)
[2021-10-09] MEDS: MEMANTINE 10 MG TAB PO SCH (21:12)
[2021-10-10] MEDS ORDERED: LEVOTHYROXINE 75 MCG TAB PO SCH (06:30)
[2021-10-10] MEDS ORDERED: DOBUTamine DRIP for NUC MED 500 MG in DEXTROSE/WATER 1 250ML.BAG IV PRN (08:57)
[2021-10-10] MEDS ORDERED: NON FORMULARY DRUG (Ezetimibe/Simvastatin [Vytorin 10-40 Mg Tablet] 1 EACH Tablet) PO SCH (09:00)
[2021-10-10] MEDS ORDERED: MULTIVITAMINS, THERA 1 EACH TAB PO SCH (09:00)
[2021-10-10] MEDS ORDERED: EZETIMIBE 10 MG TAB PO SCH (09:00)
[2021-10-10] MEDS ORDERED: LOSARTAN-HCTZ 50-12.5 MG 1 EACH TAB PO SCH (09:00)
[2021-10-10] MEDS ORDERED: LACTOBACILLUS ACIDOPH & BULGAR 1 EACH PACKET PO SCH (09:00)
[2021-10-10] MEDS ORDERED: PANTOPRAZOLE 40 MG TABLET PO SCH (09:00)
[2021-10-10] MEDS ORDERED: ATORVASTATIN 20 MG TAB PO SCH (09:00)
[2021-10-10] MEDS ORDERED: ASPIRIN 81 MG PO SCH (09:00)
[2021-10-10] MEDS: MEMANTINE 10 MG TAB PO SCH (09:02)
[2021-10-10] MEDS: GABAPENTIN 300 MG CAP PO SCH (09:02)
[2021-10-10] MEDS: metFORMIN 500 MG TAB PO SCH (09:03)
[2021-10-10] MEDS: buPROPion SR 150 MG TABLET.ER PO SCH (09:03)
[2021-10-10] MEDS: SODIUM CHLORIDE 0.9% 1,000 ML IV SCH (09:04)
[2021-10-10 09:29] LABS: African American GFR (CKD) 40.2 (60.0-200.0); Anion Gap 12.1 mmol/L (10.00-18.00); BUN/Creat Ratio 17.4 Ratio (12.00-20.00); Basophils # (A) 0.06 X 10*3/uL (0.00-0.10); Basophils % (A) 0.9 %; Blood Urea Nitrogen 26.1 mg/dL (9.0-27.0); Calcium 9.1 mg/dL (8.7-10.3); Carbon Dioxide 27.9 mmol/L (20.0-27.5); Eosinophils # (A) 0.15 X 10*3/uL (0.04-0.35); Eosinophils % (A) 2.3 %; HCT 40.7 % (37.2-46.3); HGB 12.2 g/dL (12.0-15.0); Immature Grans, Automated 0.8 %; Lymphocytes # (A) 2.12 X 10*3/uL (0.90-5.00); MCH 29.2 pg (27.0-32.0); MCV 97.4 fL (80.0-97.0); Monocytes # (A) 0.52 X 10*3/uL (0.20-1.00); Monocytes % (A) 7.9 %; NRBC Per 100 WBC 0 /100 WBCS (0.0-0.0); Neutrophils # (A) 3.72 X 10*3/uL (1.80-7.70); Neutrophils % (A) 56.1 %; Non-African American GFR(CKD) 34.7 (60.0-200.0); Platelet Count 256 X 10*3/uL (140-440); Potassium 4.7 mmol/L (3.5-5.5); RBC 4.18 X 10*6/uL (4.10-5.20); RDW 14.3 % (11.5-14.5); WBC 6.62 X 10*3/uL (4.50-10.00)
--- NOTE | 2021-10-10 09:36 | P.CRDCN ---
History of Present Illness History of present illness: HISTORY OF PRESENT ILLNESS: This is a 71-year-old female with a past medical history significant for hypertension, hyperlipidemia, diabetes, anxiety, depression, and former nicotine dependence. Patient does not follow with a dye tank tender. We have been asked to see the patient in consultation for chest pain. Patient examined at the bedside. Patient reports she has had chest discomfort on and off for the past 2 days. She states that pain feels like a dull pressure in the middle of her chest. She denied any shortness breath. Denied any radiation of the pain. Denies any dizziness or lightheadedness. At the time of my examination the patient denies any chest pain or pressure. She does report having a stress test many many years ago and states it was normal to her knowledge. She denies having a history of coronary artery disease or any stents. * EKG reveals sinus mechanism with no signs of acute ischemia * Chest xray negative for acute process * Laboratory data: WBC 6.62. Hemoglobin 12.2. Platelet count 256. Sodium 140. Potassium 4.7. BUN 26. Creatinine 1.5. Troponin negative 3. * Current home cardiac medications include aspirin 81 mg daily, losartan- hydrochlorothiazide 5012.5 mg daily REVIEW OF SYSTEMS: At the time of my exam: CONSTITUTIONAL: Denies fever or chills. HEENT: Denies blurred vision, vision changes, or eye pain. Denies hemoptysis CARDIOVASCULAR: Denies chest pain. Denies orthopnea. Denies PND. Denies palpitations RESPIRATORY: Denies shortness of breath. GASTROINTESTINAL: Denies abdominal pain. Denies nausea or vomiting. HEMATOLOGIC: Denies bleeding disorders. GENITOURINARY: Denies any blood in urine. SKIN: Denies pruitis. Denies rash. PHYSICAL EXAM: VITAL SIGNS: Reviewed. GENERAL: Well-developed in no acute distress. HEENT: Head is normocephalic. Pupils are equal, round. Sclerae anicteric. Mucous membranes of the mouth are moist. Neck supple. No JVD or thyromegaly LUNGS: Respirations even and unlabored. Lungs essentially clear to auscultation bilaterally. HEART: Regular rate and rhythm. S1 and S2 heard. ABDOMEN: Soft. Nondistended. Nontender. EXTREMITIES: Normal range of motion. No clubbing or cyanosis. Peripheral pulses intact. No lower extremity edema NEUROLOGIC: Awake and alert. Oriented x 3. ASSESSMENT: Chest pain, troponins negative 3 Hypertension Hyperlipidemia Diabetes Anxiety Depression Former nicotine Morbid obesity PLAN: An acute coronary event has been ruled out Resume home cardiac medications Obtain 2-D echo to assess cardiac structure and function Patient to undergo dobutamine stress echo today If stress test is negative, patient may be discharged home today from a cardiac standpoint Nurse practitioner note has been reviewed by physician. Signing provider agrees with the documented findings, assessment, and plan of care. Past Medical History Past Medical History: Diabetes Mellitus, Hyperlipidemia, Hypertension, Thyroid Disorder History of Any Multi-Drug Resistant Organisms: None Reported Past Surgical History: Hernia Repair, Hysterectomy, Orthopedic Surgery, Tonsillectomy Additional Past Surgical History / Comment(s): hemorrhoid Past Anesthesia/Blood Transfusion Reactions: No Reported Reaction Past Psychological History: Anxiety, Depression Smoking Status: Former smoker Past Alcohol Use History: None Reported Past Drug Use History: None Reported - Past Family History Mother Additional Family Medical History / Comment(s): Rheumatic heart disease Father Family Medical History: Coronary Artery Disease (CAD) Medications and Allergies Home Medications Medication Instructions Recorded Confirmed Type ALPRAZolam [Xanax] 0.25 mg PO BID PRN 10/29/16 10/09/21 History Esomeprazole Magnesium [NexIUM] 40 mg PO DAILY 10/29/16 10/09/21 History Ezetimibe/Simvastatin [Vytorin 1 tab PO DAILY 10/29/16 10/09/21 History 10-40 mg Tablet] Losartan-Hctz 50-12.5 mg [Hyzaar 1 tab PO DAILY 10/29/16 10/09/21 History 50-12.5] Memantine [Namenda] 10 mg PO BID 10/29/16 10/09/21 History buPROPion HCL [Wellbutrin SR] 150 mg PO BID 10/29/16 10/09/21 History sitaGLIPtin PHOS/metFORMIN HCL 1 tab PO BID 10/29/16 10/09/21 History [Janumet 50-500 mg Tablet] Aspirin 81 mg PO DAILY 03/12/17 10/09/21 History Gabapentin [Neurontin] 300 mg PO TID 10/09/21 10/09/21 History Hydrocodone/Acetaminophen [Fenwick 1 tab PO TID PRN 10/09/21 10/09/21 History 7.5-325] L.acidoph,Paracasei, B.lactis 1 cap PO DAILY 10/09/21 10/09/21 History [Probiotic] Levothyroxine Sodium [Synthroid] 150 mcg PO DAILY 10/09/21 10/09/21 History Multivit-Min/FA/Lycopen/Lutein 1 tab PO DAILY 10/09/21 10/09/21 History [Centrum Silver Tablet] Allergies Allergy/AdvReac Type Severity Reaction Status Date / Time No Known Allergies Allergy Verified 10/09/21 13:50 Physical Exam Vitals: Vital Signs Temp Pulse Pulse Resp BP BP BP 10/10/21 07:00 97.7 F 69 15 111/65 10/10/21 02:16 63 16 10/10/21 00:30 97.8 F 74 17 111/58 10/09/21 21:11 16 10/09/21 20:31 98.2 F 63 19 118/75 10/09/21 15:17 82 16 109/62 10/09/21 13:48 79 20 136/72 10/09/21 12:17 98.1 F 83 18 116/75 Pulse Ox 10/10/21 07:00 96 10/10/21 02:16 10/10/21 00:30 98 10/09/21 21:11 10/09/21 20:31 100 10/09/21 15:17 95 10/09/21 13:48 97 10/09/21 12:17 98 Intake and Output 10/09/21 10/10/21 10/10/21 22:59 06:59 14:59 Other: Voiding Method Toilet Toilet # Voids 2 2 Weight 108.862 kg Results 10/10/21 04:04 10/10/21 04:04 Cardiac Enzymes 10/09/21 10/09/21 10/09/21 Range/Units 12:29 12:29 14:56 AST 24 (14-36) U/L Troponin I <0.012 <0.012 (0.000-0.034) ng/mL 10/09/21 Range/Units 17:57 AST (14-36) U/L Troponin I <0.012 (0.000-0.034) ng/mL Coagulation 10/09/21 Range/Units 12:29 PT 10.6 (9.0-12.0) sec APTT 23.8 (22.0-30.0) sec CBC 10/09/21 Range/Units 12:29 WBC 6.2 (3.8-10.6) k/uL RBC 4.60 (3.80-5.40) m/uL Hgb 13.9 (11.4-16.0) gm/dL Hct 44.5 (34.0-46.0) % Plt Count 261 (150-450) k/uL Comprehensive Metabolic Panel 10/09/21 Range/Units 12:29 Sodium 139 (137-145) mmol/L Potassium 5.3 H (3.5-5.1) mmol/L Chloride 102 (98-107) mmol/L Carbon Dioxide 32 H (22-30) mmol/L BUN 27 H (7-17) mg/dL Creatinine 1.26 H (0.52-1.04) mg/dL Glucose 192 H (74-99) mg/dL Calcium 9.2 (8.4-10.2) mg/dL AST 24 (14-36) U/L ALT 21 (4-34) U/L Alkaline Phosphatase 92 (38-126) U/L Total Protein 7.0 (6.3-8.2) g/dL Albumin 4.3 (3.5-5.0) g/dL Current Medications Generic Name Dose Route Start Last Admin Trade Name Freq PRN Reason Stop Dose Admin Hydrocodone Bitart/Acetaminophen 1 each 10/09/21 14:45 Hydrocodone/Apap 7.5-325mg 1 Each Tab PO TID PRN Pain Alprazolam 0.25 mg 10/09/21 14:45 Alprazolam 0.25 Mg Tab PO BID PRN Anxiety Aspirin 81 mg 10/10/21 09:00 Aspirin 81 Mg PO DAILY JEANINE Atorvastatin Calcium 20 mg 10/10/21 09:00 Atorvastatin 20 Mg Tab PO DAILY JEANINE Bupropion HCl 150 mg 10/09/21 21:00 10/09/21 21:11 Bupropion Sr 150 Mg Tablet.Er PO 150 mg BID JEANINE Administration Ezetimibe 10 mg 10/10/21 09:00 Ezetimibe 10 Mg Tab PO DAILY JEANINE Gabapentin 300 mg 10/09/21 16:00 10/09/21 21:12 Gabapentin 300 Mg Cap PO 300 mg TID JEANINE Administration HCTZ/Losartan Potassium 1 each 10/10/21 09:00 Losartan-Hctz 50-12.5 Mg 1 Each Tab PO DAILY JEANINE Sodium Chloride 1,000 mls @ 100 mls/hr 10/09/21 17:45 10/09/21 21:11 Saline 0.9% IV 50 mls/hr .Q10H JEANINE Administration Lactobacillus Acidoph/Bulgaricus 1 each 10/10/21 09:00 Lactobacillus Acidoph & Bulgar 1 Each Packet PO DAILY JEANINE Levothyroxine Sodium 150 mcg 10/10/21 06:30 10/10/21 05:31 Levothyroxine 75 Mcg Tab PO 150 mcg 0630 JEANINE Administration Linagliptin 5 mg 10/09/21 21:00 10/09/21 21:11 Linagliptin 5 Mg Tablet PO 5 mg HS JEANINE Administration Memantine 10 mg 10/09/21 21:00 10/09/21 21:12 Memantine 10 Mg Tab PO 10 mg BID JEANINE Administration Metformin HCl 500 mg 10/09/21 21:00 10/09/21 21:12 Metformin 500 Mg Tab PO 500 mg BID JEANINE Administration Multivitamins 1 each 10/10/21 09:00 Multivitamins, Thera 1 Each Tab PO DAILY JEANINE Naloxone HCl 0.2 mg 10/09/21 14:43 Naloxone 0.4 Mg/Ml 1 Ml Vial IV Q2M PRN Opioid Reversal Pantoprazole Sodium 40 mg 10/10/21 09:00 Pantoprazole 40 Mg Tablet PO DAILY JEANINE Intake and Output 10/09/21 10/10/21 10/10/21 22:59 06:59 14:59 Other: Voiding Method Toilet Toilet # Voids 2 2 Weight 108.862 kg 10/09/21 12:29 10/09/21 12:29
[2021-10-10] MEDS ORDERED: DOBUTamine DRIP for NUC MED 500 MG/250 ML BAG IV ONE (09:41)
--- NOTE | 2021-10-10 12:36 | CA ---
Transthoracic Echo Report Name: Alyx Gonzalez Age: 71 Gender: F : 1950 Exam Date: 10/10/2021 10:00 Exam Location: [facility] Ht (in): 63 Wt (lb): 240 Ordering Physician: Catherine Wheat Attending/Referring Phys: [id number], [place] Worker Sunni Love, ROB Procedure CPT: Indications: LV function Cardiac Hx: Technical Quality: Fair Contrast 1: Total Dose (mL): Contrast 2: Total Dose (mL): MEASUREMENTS (Male / Female) Normal Values 2D ECHO LV Diastolic Diameter PLAX 3.7 cm 4.2 - 5.9 / 3.9 - 5.3 cm LV Systolic Diameter PLAX 2.4 cm IVS Diastolic Thickness 1.1 cm 0.6 - 1.0 / 0.6 - 0.9 cm LVPW Diastolic Thickness 0.9 cm 0.6 - 1.0 / 0.6 - 0.9 cm LV Relative Wall Thickness 0.5 RV Internal Dim ED PLAX 3.1 cm LA Systolic Diameter LX 2.8 cm 3.0 - 4.0 / 2.7 - 3.8 cm LA Volume 35.9 cm??? 18 - 58 / 22 - 52 cm??? M-MODE Aortic Root Diameter MM 3.4 cm MV E Point Septal Separation 0.6 cm AV Cusp Separation MM 2.3 cm DOPPLER AV Peak Velocity 111.1 cm/s AV Peak Gradient 4.9 mmHg MV Area PHT 2.3 cm??? Mitral E Point Velocity 64.6 cm/s Mitral A Point Velocity 90.9 cm/s Mitral E to A Ratio 0.7 MV Deceleration Time 326.7 ms MV E' Velocity 5.2 cm/s Mitral E to MV E' Ratio 12.4 FINDINGS Left Ventricle Left ventricular ejection fraction is estimated at 55-60 %. Left ventricular cavity size normal. Left ventricular wall thickness normal. Right Ventricle Normal right ventricular size and function. Unable to estimate the right ventricular systolic pressure. Right Atrium Normal right atrial size. Left Atrium Normal left atrial size. No evidence for an atrial septal defect. Mitral Valve Structurally normal mitral valve. No mitral stenosis, regurgitation or prolapse. Aortic Valve Trileaflet aortic valve. No aortic valve stenosis or regurgitation. Tricuspid Valve Structurally normal tricuspid valve. No tricuspid stenosis, regurgitation or prolapse. Pulmonic Valve Pulmonic valve not well visualized. Pericardium Normal pericardium. No pericardial effusion. Aorta Normal size aortic root and proximal ascending aorta. CONCLUSIONS Normal LV size and systolic function. No significant abnormality on the Doppler exam. No pericardial effusion Previewed by: Dr. Timothy Gutierrez MD (Electronically Signed) Final Date: 10 October 2021 12:35
--- NOTE | 2021-10-10 12:39 | CA ---
Dobutamine Stress Echocardiogram Report Alyx Gonzalez Age: 71 Gender: F : 1950 Exam Date: 10/10/2021 09:39 Exam Location: [facility] Ordering Physician: Catherine Wheat Referring Physician: [id number] Alice Smoke Tester: Sunni Love RDCS Technologist: Ht (in): 63 Wt (lb): 240 Procedure CPT: Indication: Chest Pain ICD-9 Codes: Rhythm: Patient History: Chest Pain Cardiac Medications: Medications in past 24 hours: Contrast: Total Dose (mL): Stress Results Protocol: Low dose for viability Peak Dose (???g/kg/min): 40 Duration (min:sec): Atropine:(mg) Target HR: 127 Double Product: Resting HR: 70 Resting BP: 108 / 61 Peak HR: 131 Peak BP: 153 / 63 Max Predicted HR: 149 88 % Max Predicted HR Stress Summary: Infusion time 9:32. BP Response: Reason for Termination: Completion of Infusion,Target HR Cardiac Symptoms: NO SYMPTOMS ECG Analysis Resting EKG: Stress EKG: Arrhythmia: Echo Analysis Base Echo Analysis: Low Echo Anaylsis: Peak Echo Analysis: Recovery Echo: MEASUREMENTS (Male/Female) Normal Values CONCLUSIONS Baseline EKG revealed normal sinus rhythm without any significant ST-T changes. With the dobutamine administration heart rate went up to 129 bpm which is 87% of predicted maximal. Patient was asymptomatic. There was no arrhythmia there were no EKG changes to indicate ischemia. This is unremarkable dobutamine stress test by EKG criteria Baseline echo images revealed normal wall motion wall thickening of all segments. With the dobutamine administration as per protocol there was progressive increase in contractility noted. There is no evidence suggest any dobutamine-induced ischemia on the study. This is a unremarkable dobutamine stress echo Final impression: #1 normal dobutamine stress test by EKG criteria #2 normal dobutamine stress echocardiogram without evidence of ischemia Dr. Timothy Gutierrez MD (Electronically Signed) Final Date: 10 October 2021 12:38
[2021-10-10 12:43] LABS: Glucose,Whole Blood 256 mg/dL (70-110)
[2021-10-10 14:43] VITALS: BP 105/69; PULSE 79; RESP 16; TEMP 98.2
== END 2021-10-10 16:48 | disposition home or self-care (01) ==
LOC: EC 12:07 → 6NMEDSUR 14:44
PROVIDERS: ADMIT Family Medicine; ATTEND Family Medicine
DX: R07.89 Other chest pain (principal); N17.9 Acute kidney failure, unspecified; E86.0 Dehydration; N20.0 Calculus of kidney; E11.9 Type 2 diabetes mellitus without complications; I10 Essential (primary) hypertension; E78.5 Hyperlipidemia, unspecified; E07.9 Disorder of thyroid, unspecified; F32.A Depression, unspecified; F41.9 Anxiety disorder, unspecified; E66.01 Morbid (severe) obesity due to excess calories; K76.0 Fatty (change of) liver, not elsewhere classified; Z87.11 Personal history of peptic ulcer disease; Z79.899 Other long term (current) drug therapy; Z79.82 Long term (current) use of aspirin; Z79.890 Hormone replacement therapy; Z90.710 Acquired absence of both cervix and uterus; Z87.891 Personal history of nicotine dependence; Z82.49 Family history of ischemic heart disease and other diseases of the circulatory system; Z82.61 Family history of arthritis; Z86.16 Personal history of COVID-19; Z68.41 Body mass index [BMI] 40.0-44.9, adult
CPT/HCPCS: 96374; 99285; 36415; 93005; 93306; 93351; 85379; 80053; 80048; 83690; 84484; 85025 ×2; 85610; 85730; 84145; 71046; 71250; G0378 ×2; J1250; S0106 ×2; C9113

== ENCOUNTER → 2022-05-30 | Outpatient (CLI) | payer MEDICARE, OTHER ==
--- NOTE | 2022-05-30 12:42 | MM ---
Reason for Exam: Screening (asymptomatic). Last mammogram was performed 7 year(s) and 4 month(s) ago. Patient History: Menarche at age 11. First Full-Term at age 21. Postmenopausal. Paternal aunt had breast cancer. Paternal aunt had breast cancer. Risk Values: Helen 5 year model risk: 1.7%. NCI Lifetime model risk: 4.7%. Prior Study Comparison: 01/26/2007 Bilateral Diagnostic Mammogram, [facility]. 11/29/2009 Bilateral Screening Mammogram, [facility]. 01/20/2015 Bilateral Screening Mammogram, [facility]. Tissue Density: The breast tissue is almost entirely fat. Findings: Analyzed By CAD. There is no suspicious group of microcalcifications or new suspicious mass in either breast. Overall Assessment: Negative, BI-RAD 1 Management: Screening Mammogram of both breasts in 1 year. A clinical breast exam by your physician is recommended on an annual basis and results should be correlated with mammographic findings. [facility] will attempt to contact patient to return for supplemental views and ultrasound if indicated. Electronically signed and approved by: Alli Somers DO
--- NOTE | 2022-05-30 14:38 | BD ---
EXAMINATION TYPE: Axial Bone Density DATE OF EXAM: 05/30/2022 CLINICAL HISTORY: 71 years old Female. ICD-10 CODE: Z78.0 POST MENOPAUSAL WITHOUT HRT Height: 63 Weight: 257.5 FRAX RISK QUESTIONS: Alcohol (3 or more units per day): no Family History (Parent hip fracture): no Glucocorticoids (More than 3mos): no History of Fracture in Adulthood: elbow Secondary Osteoporosis: 1. Type 1 Diabetes: no 2. Hyperthyroidism: no 3. Menopause before 45: no 4. Malnutrition: no 5. Chronic liver disease: no Rheumatoid Arthritis: no Current Tobacco Use: no RISK FACTORS HISTORY OF: Hip Fracture (Right/Left): no Spine Fracture: no History of Wrist Fracture: no Surgery to Spine/Hip(right/left)/Wrist (right/left): no Family History of Osteoporosis: sister Active: no Diet low in dairy products/other sources of calcium: yes Postmenopausal woman: yes Take estrogen and/or progesterone medications: no Lost more than 2 inches in height since high school: no Frequent falls: no Poor Health: no Hyperparathyroidism: no Adrenal Insufficiency: no MEDICATIONS: Prednisone or other steroids: no Thyroid Medications: synthroid How Long: past 25 years Osteoporosis Medications: no Which medication: How Long: Additional Medications: hazzar, BP meds, diabetic meds, reflux meds, cholesterol meds, multi vit., Additional History: EXAM MEASUREMENTS: Bone mineral densitometry was performed using the [employer] System. Bone mineral density as measured about the Lumbar spine is: ----- L1-L4(G/cm2): 1.321 T Score Values are as follows: ----- L1: -0.5 ----- L2: 0.7 ----- L3: 1.5 ----- L4: 2.8 ----- L1-L4: 1.2 Z Score Values are as follows: ----- L1: 0.1 ----- L2: 1.2 ----- L3: 2.0 ----- L4: 3.3 ----- L1-L4: 1.7 Baseline Study Bone mineral density about the R hip (g/cm2): 1.014 Bone mineral density about the L hip (g/cm2): 1.042 T Score values are as follows: -----R Neck: 0.4 -----L Neck: -0.1 -----R Total: 0.0 -----L Total: 0.3 Z Score values are as follows: -----R Neck: 1.4 -----L Neck: 0.9 -----R Total: 0.8 -----L Total: 1.0 Baseline Study FRAX%s: The graph provided illustrates a 6.3%chance for a major osteoporotic fx and a 0.4% chance for the hips probability for fx in 10 years time. IMPRESSION: Normal (Values between +1 and -1 indicate normal bone mass). Consider repeating this study in 5 year s or sooner if there is some new clinical indication. NOTE: T-SCORE=SD OF THE YOUNG ADULT MEAN.
== END | disposition home or self-care (01) ==
LOC: RADMAMWWP 10:56
PROVIDERS: ATTEND Family Medicine
DX: Z12.31 Encounter for screening mammogram for malignant neoplasm of breast (principal); Z78.0 Asymptomatic menopausal state; Z80.3 Family history of malignant neoplasm of breast
CPT/HCPCS: 77063; 77067; 77080

== ENCOUNTER 2022-08-25 21:03 | Emergency (ER) | payer MEDICARE, OTHER ==
[2022-08-25 21:14] VITALS: TEMP 98.1
--- NOTE | 2022-08-25 21:49 | ED ---
General Adult HPI - General Chief complaint: Recheck/Abnormal Lab/Rx Stated complaint: Hypertension Time Seen by Provider: 08/25/22 21:19 Source: patient, RN notes reviewed Mode of arrival: wheelchair Limitations: no limitations - History of Present Illness Initial comments: Patient is a pleasant 72-year-old female presenting to the emergency department with concern for hypertension. Patient states her systolic blood pressure was 150 and 160 earlier today. Patient also felt her sugar was high at 150. Patient omits to feeling somewhat anxious. Patient states she did have some pierced seizures earlier. Patient denies chest pain. Patient does have history of similar problems previously associated with anxiety. Patient states she also has a headache however this is very mild. Not severe. Not sudden onset. - Related Data Home Medications Medication Instructions Recorded Confirmed ALPRAZolam [Xanax] 0.25 mg PO BID PRN 10/29/16 10/09/21 Esomeprazole Magnesium [NexIUM] 40 mg PO DAILY 10/29/16 10/09/21 Ezetimibe/Simvastatin [Vytorin 1 tab PO DAILY 10/29/16 10/09/21 10-40 mg Tablet] Losartan-Hctz 50-12.5 mg [Hyzaar 1 tab PO DAILY 10/29/16 10/09/21 50-12.5] Memantine [Namenda] 10 mg PO BID 10/29/16 10/09/21 buPROPion HCL [Wellbutrin SR] 150 mg PO BID 10/29/16 10/09/21 sitaGLIPtin PHOS/metFORMIN HCL 1 tab PO BID 10/29/16 10/09/21 [Janumet 50-500 mg Tablet] Aspirin 81 mg PO DAILY 03/12/17 10/09/21 Gabapentin [Neurontin] 300 mg PO TID 10/09/21 10/09/21 Hydrocodone/Acetaminophen [[place] 1 tab PO TID PRN 10/09/21 10/09/21 7.5-325] L.acidoph,Paracasei, B.lactis 1 cap PO DAILY 10/09/21 10/09/21 [Probiotic] Levothyroxine Sodium [Synthroid] 150 mcg PO DAILY 10/09/21 10/09/21 Multivit-Min/FA/Lycopen/Lutein 1 tab PO DAILY 10/09/21 10/09/21 [Centrum Silver Tablet] Allergies Allergy/AdvReac Type Severity Reaction Status Date / Time No Known Allergies Allergy Verified 08/25/22 21:14 Review of Systems ROS Statement: Those systems with pertinent positive or pertinent negative responses have been documented in the HPI. ROS Other: All systems not noted in ROS Statement are negative. Constitutional: Denies: fever Eyes: Denies: eye pain ENT: Denies: ear pain Respiratory: Denies: cough Cardiovascular: Denies: chest pain Endocrine: Denies: fatigue Gastrointestinal: Denies: abdominal pain Genitourinary: Denies: dysuria Skin: Denies: rash Neurological: Reports: as per HPI, headache. Denies: weakness, confusion Past Medical History Past Medical History: Diabetes Mellitus, Hyperlipidemia, Hypertension, Thyroid Disorder History of Any Multi-Drug Resistant Organisms: None Reported Past Surgical History: Hernia Repair, Hysterectomy, Orthopedic Surgery, Tonsillectomy Additional Past Surgical History / Comment(s): hemorrhoid Past Anesthesia/Blood Transfusion Reactions: No Reported Reaction Past Psychological History: Anxiety, Depression Smoking Status: Former smoker Past Alcohol Use History: None Reported Past Drug Use History: None Reported - Past Family History Mother Additional Family Medical History / Comment(s): Rheumatic heart disease Father Family Medical History: Coronary Artery Disease (CAD) General Exam Limitations: no limitations General appearance: alert, in no apparent distress Head exam: Present: normocephalic Eye exam: Present: normal appearance, PERRL ENT exam: Present: normal oropharynx Neck exam: Present: normal inspection Respiratory exam: Present: normal lung sounds bilaterally Cardiovascular Exam: Present: regular rate, normal rhythm GI/Abdominal exam: Present: soft. Absent: tenderness Extremities exam: Present: normal inspection Neurological exam: Present: alert, oriented X3, CN II-XII intact. Absent: motor sensory deficit Expanded Neurological exam: Present: protecting the airway Speech: Present: fluid speech Sensory exam: Upper Extremity Light Touch: Normal, Lower Extremity Light Touch: Normal Motor strength exam: RUE: 5, LUE: 5, RLE: 5, LLE: 5 Eye Response: (4) open spontaneously Motor Response: (6) obeys commands Verbal Response: (5) oriented Psychiatric exam: Present: normal affect, normal mood Skin exam: Present: normal color Course Vital Signs 08/25/22 21:12 Temperature 98.1 F Pulse Rate 75 Respiratory 18 Rate Blood Pressure 152/79 O2 Sat by Pulse 97 Oximetry EKG Findings - EKG Results: EKG: interpreted by ERMD, sinus rhythm, normal axis, normal QRS, normal ST/T Medical Decision Making - Medical Decision Making Was pt. sent in by a medical professional or institution (, ART, HOUSE MOVER, urgent care, hospital, or halfway...) When possible be specific @ -No Did you speak to anyone other than the patient for history (EMS, parent, family, police, friend...)? What history was obtained from this source @ -Family is present and helps right history including history of kidney function Did you review nursing and triage notes (agree or disagree)? Why? @ -I reviewed and agree with nursing and triage notes Were old charts reviewed (outside hosp., previous admission, EMS record, old EKG, old radiological studies, urgent care reports/EKG's, halfway records)? Report findings @ -No old charts were reviewed Differential Diagnosis (chest pain, altered mental status, abdominal pain women, abdominal pain men, vaginal bleeding, weakness, fever, dyspnea, syncope, headache, dizziness, GI bleed, back pain, seizure, CVA, palpatations, mental health)? @ -Differential Weakness: Hypoglycemia, shock, sepsis, hyponatremia, anemia, infection, MT, ETOH, adverse medicine reaction, overdose, stroke, this is not meant to be an all-inclusive list. EKG interpreted by me (3pts min.). @ -As above X-rays interpreted by me (1pt min.). @ -None done CT interpreted by me (1pt min.). @ -None done U/S interpreted by me (1pt. min.). @ -None done What testing was considered but not performed or refused? (CT, X-rays, U/S, labs)? Why? @ -None What meds were considered but not given or refused? Why? @ -Similar medication for blood pressure control however not necessary Did you discuss the management of the patient with other professionals (professionals i.e. [employer], HOUSE MOVER, lab, RT, psych nurse, social director, mechanical oxidizer, teacher, bank officer, classification case manager)? Give summary @ -No Was smoking cessation discussed for >3mins.? @ -No Was critical care preformed (if so, how long)? @ -No Were there social determinants of health that impacted care today? How? (Homelessness, low income, unemployed, alcoholism, drug addiction, transportation, low edu. Level, literacy, decrease access to med. care, alf, rehab)? @ -No Was there de-escalation of care discussed even if they declined (Discuss DNR or withdrawal of care, Hospice)? DNR status @ -No What co-morbidities impacted this encounter? (DM, HTN, Smoking, COPD, CAD, Cancer, CVA, ARF, Chemo, Hep., AIDS, mental health diagnosis, sleep apnea, morbid obesity)? @ -None Was patient admitted / discharged? Hospital course, mention meds given and route, prescriptions, significant lab abnormalities, going to OR and other pertinent info. @ -Patient reevaluated and remained symptom-free. Patient and family updated on results and need for follow-up. Undiagnosed new problem with uncertain prognosis? @ -No Drug Therapy requiring intensive monitoring for toxicity (Heparin, Nitro, Insulin, Cardizem)? @ -No Were any procedures done? @ -No Diagnosis/symptom? @ -Hypertension Acute, or Chronic, or Acute on Chronic? @ -Acute on chronic Uncomplicated (without systemic symptoms) or Complicated (systemic symptoms)? @ -default Side effects of treatment? @ -No Exacerbation, Progression, or Severe Exacerbation? @ -No Poses a threat to life or bodily function? How? (Chest pain, USA, MT, pneumonia, PE, COPD, DKA, ARF, appy, cholecystitis, CVA, Diverticulitis, Homicidal, Suicidal, threat to staff... and all critical care pts) @ -No - Lab Data Result diagrams: 08/25/22 21:49 08/25/22 21:49 Lab Results 08/25/22 08/25/22 Range/Units 21:49 21:49 WBC 7.9 (3.8-10.6) k/uL RBC 4.68 (3.80-5.40) m/uL Hgb 14.3 (11.4-16.0) gm/dL Hct 44.7 (34.0-46.0) % MCV 95.5 (80.0-100.0) fL MCH 30.7 (25.0-35.0) pg MCHC 32.1 (31.0-37.0) g/dL RDW 13.7 (11.5-15.5) % Plt Count 310 (150-450) k/uL MPV 8.0 Neutrophils % 65 % Lymphocytes % 25 % Monocytes % 5 % Eosinophils % 3 % Basophils % 0 % Neutrophils # 5.2 (1.3-7.7) k/uL Lymphocytes # 2.0 (1.0-4.8) k/uL Monocytes # 0.4 (0-1.0) k/uL Eosinophils # 0.3 (0-0.7) k/uL Basophils # 0.0 (0-0.2) k/uL Sodium 140 (137-145) mmol/L Potassium 4.6 (3.5-5.1) mmol/L Chloride 102 (98-107) mmol/L Carbon Dioxide 27 (22-30) mmol/L Anion Gap 11 mmol/L BUN 28 H (7-17) mg/dL Creatinine 1.15 H (0.52-1.04) mg/dL Est GFR (CKD-EPI)AfAm 55 (>60 ml/min/1.73 sqM) Est GFR (CKD-EPI)NonAf 48 (>60 ml/min/1.73 sqM) Glucose 128 H (74-99) mg/dL Calcium 9.6 (8.4-10.2) mg/dL Disposition Clinical Impression: Hypertension Disposition: HOME SELF-CARE Condition: Stable Instructions (If sedation given, give patient instructions): Hypertension (ED) Additional Instructions: Continue medications as prescribed. Please do follow-up with your primary care physician in the next day or 2 for recheck. Return for increased headache, w eakness, speech problems, chest pain or difficulty breathing, uncontrolled blood pressure blood sugar, worsening symptoms or other concerns. Is patient prescribed a controlled substance at d/c from ED?: No Referrals: Ronni Pena MD [Primary Care Provider] - 1-2 days Time of Disposition: 22:41
[2022-08-25 22:02] LABS: Basophils % (A) 0 %; Eosinophils # (A) 0.3 k/uL (0-0.7); Eosinophils % (A) 3 %; HCT 44.7 % (34.0-46.0); HGB 14.3 gm/dL (11.4-16.0); Lymphocytes % (A) 25 %; MCH 30.7 pg (25.0-35.0); MCHC 32.1 g/dL (31.0-37.0); MCV 95.5 fL (80.0-100.0); Monocytes # (A) 0.4 k/uL (0-1.0); Monocytes % (A) 5 %; Neutrophils # (A) 5.2 k/uL (1.3-7.7); Neutrophils % (A) 65 %; Platelet Count 310 k/uL (150-450); RBC 4.68 m/uL (3.80-5.40); RDW 13.7 % (11.5-15.5); WBC 7.9 k/uL (3.8-10.6)
[2022-08-25 22:29] LABS: African American GFR (CKD) 55 (>60 ml/min/1.73 sqM); Anion Gap 11 mmol/L; Blood Urea Nitrogen 28 mg/dL (7-17); Calcium 9.6 mg/dL (8.4-10.2); Carbon Dioxide 27 mmol/L (22-30); Chloride 102 mmol/L (98-107); Glucose 128 mg/dL (74-99); Non-African American GFR(CKD) 48 (>60 ml/min/1.73 sqM); Potassium 4.6 mmol/L (3.5-5.1); Sodium 140 mmol/L (137-145)
[2022-08-25 22:56] VITALS: BP 118/65; PULSE 70; RESP 20
== END 2022-08-25 23:01 | disposition home or self-care (01) ==
LOC: EC 21:03
DX: I10 Essential (primary) hypertension (principal); E11.9 Type 2 diabetes mellitus without complications; E78.5 Hyperlipidemia, unspecified; E07.9 Disorder of thyroid, unspecified; F41.9 Anxiety disorder, unspecified; F32.A Depression, unspecified; Z87.891 Personal history of nicotine dependence; Z79.890 Hormone replacement therapy; Z79.82 Long term (current) use of aspirin; Z79.84 Long term (current) use of oral hypoglycemic drugs; Z79.899 Other long term (current) drug therapy
CPT/HCPCS: 36415; 80048; 85025; 93005; 99284

== ENCOUNTER → 2024-01-19 | Outpatient (CLI) | payer MEDICARE, OTHER ==
--- NOTE | 2024-01-19 14:10 | MM ---
Reason for Exam: Screening (asymptomatic). Last mammogram was performed 1 year(s) and 8 month(s) ago. Patient History: Menarche at age 11. First Full-Term at age 21. Postmenopausal. Paternal aunt had breast cancer. Paternal aunt had breast cancer. Risk Values: Helen 5 year model risk: 1.7%. NCI Lifetime model risk: 4.3%. Prior Study Comparison: 07/20/1992 Screening Mammogram, Unknown. 11/29/2009 Bilateral Screening Mammogram, [facility]. 01/20/2015 Bilateral Screening Mammogram, [facility]. 05/30/2022 Bilateral MG 3D screening mammo w/cad, [facility]. Tissue Density: The breasts are heterogeneously dense, which may obscure small masses. Findings: Analyzed By CAD. There is no suspicious group of microcalcifications or new suspicious mass in either breast. Overall Assessment: Benign, BI-RAD 2 Management: Screening Mammogram of both breasts in 1 year. . Patient should continue monthly self-breast exams. A clinical breast exam by your physician is recommended on an annual basis. This exam should not preclude additional follow-up of suspicious palpable abnormalities. Note on Helen scores and lifetime risk: 1. A Helen score greater than 3% is considered moderate risk. If this is the case, consider specialist referral to assess eligibility for a risk reducing agent. 2. If overall lifetime risk for the development of breast cancer is 20% or higher, the patient may qualify for future screening with alternating mammogram and breast MRI. [facility], , 01/19/2024 2:07 PM. Electronically signed and approved by: Ronni Malik M.D. [facility]
== END | disposition home or self-care (01) ==
LOC: RADMAMWWP 12:40
PROVIDERS: ATTEND Family Medicine
DX: Z12.31 Encounter for screening mammogram for malignant neoplasm of breast (principal); Z78.0 Asymptomatic menopausal state; Z80.3 Family history of malignant neoplasm of breast; R92.333 Mammographic heterogeneous density, bilateral breasts
CPT/HCPCS: 77063; 77067